=== PATIENT | female | born 1975 | race Caucasian/White ===

== ENCOUNTER 2017-06-01 13:37 | Emergency (ER) | payer BC, OTHER ==
[~2017-06-01] VITALS: Ht 167.6 cm; Wt 105.7 kg
[~2017-06-01 13:37] MED LIST: PRM625 PO; RANI150T3 PO; SERT-234 PO
[2017-06-01 13:50] VITALS: TEMP 36.7; Ht 167.6 cm; Wt 105.7 kg
[2017-06-01] MEDS ORDERED: ONDANSETRON INJ 2 MG/ML 2 ML VIAL IV STA (14:56)
[2017-06-01] MEDS ORDERED: KETOROLAC TROMETHAMINE 30 MG/ML VIAL IV STA (14:56)
[2017-06-01] MEDS ORDERED: SODIUM CHLORIDE 0.9% 1000ML 500 ML IV STA (14:56)
[2017-06-01] MEDS ORDERED: IBUP-1050 PO (15:10)
[2017-06-01 15:20] LABS: BASO % 0.1 %; BASO ABS # 0.01 K/uL (0-0.2); EOS % 1.1 %; EOS ABS # 0.08 K/uL (0-0.5); HEMOGLOBIN 13.2 g/dL (12.0-16.0); IG# 0.02 K/uL (0.00-0.02); LYMPH % 39.3 %; LYMPH ABS # 2.74 K/uL (1.2-3.4); MEAN CELL VOLUME 85.9 fL (80-100); MEAN CORPUSCULAR HEMOGLOBIN 29.1 pg (25-34); MEAN CORPUSCULAR HGB CONC 33.8 g/dl (32-36); MEAN PLATELET VOLUME 8.5 fL (7.4-10.4); MONO % 5.6 %; MONO ABS # 0.39 K/uL (0.11-0.59); NEUT % 53.6 %; NEUT ABS # 3.73 K/uL (1.4-6.5); PLATELET COUNT 220 K/uL (130-400); WHITE BLOOD COUNT 6.97 K/uL (4.8-10.8)
[2017-06-01 15:35] LABS: ALBUMIN 4.1 gm/dl (3.4-5.0); CALCIUM 9.2 mg/dl (8.5-10.1); CREATININE 0.87 mg/dl (0.60-1.20); POTASSIUM 3.9 mmol/L (3.5-5.1)
[2017-06-01 15:38] LABS: TOTAL PROTEIN 7.5 gm/dl (6.4-8.2)
--- NOTE | 2017-06-01 15:39 | DIAGNOSTIC IMAGING REPORT ---
ABD/PELVIS WITHOUT FOR STONE CLINICAL HISTORY: 42 years-old Female presenting with EVALUATE FLANK PAIN/HEMATURIA, right-sided abdominal pain. TECHNIQUE: Multidetector CT of the abdomen and pelvis was performed without the use of intravenous contrast. IV contrast: None. A dose lowering technique was used consistent with the principles of ALARA (as low as reasonably achievable). COMPARISON: Right upper quadrant ultrasound from 04/29/2014. CT DOSE (mGy.cm): The estimated cumulative dose is 1742.36 mGy.cm. 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 Lung bases: Minimal basilar opacities, likely atelectasis. Normal heart size. No pericardial or pleural effusion. Liver: Normal morphology. Normal density. Biliary: No gross biliary ductal dilatation allowing for noncontrast technique. Normal gallbladder. Pancreas: Normal noncontrast appearance. Spleen: Normal noncontrast appearance. Splenule noted. Adrenal glands: Normal noncontrast appearance. Kidneys and ureters: Normal noncontrast appearance. No nephrolithiasis. No hydronephrosis. Normal ureters. Calcification in the region of the right ureterovesical junction is suspected to be a phlebolith. Additionally, calcification along the mid left ureter is also suspected to be a phlebolith. Bladder: Incompletely evaluated secondary to underdistention. Pelvic organs: Uterus surgically absent. Normal ovaries. Bowel: Normal appendix. No bowel obstruction. Peritoneal cavity: No free fluid or intraperitoneal gas. Lymph nodes: No gross lymphadenopathy allowing for noncontrast technique. Vasculature: Normal noncontrast appearance. Abdominal wall: Normal. Musculoskeletal: Normal. IMPRESSION: 1. No acute intra-abdominal pathology. Electronically signed by: John Collazo M.D. 06/01/2017 3:38 PM Dictated Date/Time: 06/01/2017 3:31 PM
--- NOTE | 2017-06-01 17:03 | DIAGNOSTIC IMAGING REPORT ---
PELVIC COMPLETE NON OB HISTORY: 42 years-old Female poss ovarian cyst, torsion acute pelvic pain. Patient reports prior hysterectomy with bilateral salpingo-oophorectomy. COMPARISON: CT of same day TECHNIQUE: Multiple real-time sonographic images of the deep pelvic structures were obtained transabdominally assessing grayscale appearance. FINDINGS: Patient refused the transvaginal portion of the study. Uterus and ovaries are surgically absent. The urinary bladder is partially decompressed. No focal abnormality or fluid collections identified within the pelvis. IMPRESSION: 1. No acute abnormality identified within the pelvis. 2. Surgically absent uterus and ovaries. The above report was generated using voice recognition software. It may contain grammatical, syntax or spelling errors. Electronically signed by: Driss Goodrich M.D. 06/01/2017 5:01 PM Dictated Date/Time: 06/01/2017 4:59 PM
[2017-06-01 18:04] VITALS: BP 138/95; PULSE 78; O2SAT 95
--- NOTE | 2017-06-01 18:52 | EMERGENCY ROOM VISIT NOTE ---
History Report prepared by [place]: Tamera Herr Under the Supervision of: Dr. John Austin M.D. First contact with patient: 14:49 Chief Complaint: ABDOMINAL PAIN Stated Complaint: PAIN IN RIGHT SIDE AND BACK Nursing Triage Summary: Pt reports cramping in right side of abdomen and nausea that started this AM. History of Present Illness The patient is a 42 year old female who presents to the Emergency Room with complaints of intermittent right sided abdominal pain starting 6 hours ago. The patient was sitting at her desk today when she started feeling nauseous. She then leaned forward and started getting cramping and twisting RLQ abdominal pain. She was nauseous and diaphoretic with the pain. She rates her discomfort as a 7-8/10 in severity. The pain then resolved before coming back. The pain goes straight through to her back. The pain seems to worsen with bending over. She has never had this pain before. She is having some pain in her right leg. She denies any urinary symptoms, fever, or vomiting. She denies any trauma. She has a history of abdominal pain with constipation, but her pain today was different. She had a loose bowel movement this morning and does not feel constipated. She has not noticed any hernia. She still has her appendix. She has had a complete hysterectomy. She denies any history of kidney stones. She has a family history of gallbladder disease and kidney stones. Source of History: patient Onset: 6 hours ago Position: abdomen Symptom Intensity: 7-8/10 Quality: cramping, other (twisting) Timing: intermittent Modifying Factors (Worsening): other (bending over) Associated Symptoms: + diaphoresis, + nausea, + back pain, No fevers, No vomiting, No urinary symptoms Review of Systems See HPI for pertinent positives & negatives. A total of 10 systems reviewed and were otherwise negative. Past Medical & Surgical Surgical Problems: (1) S/P hysterectomy Family History FHx: gallbladder disease Kidney stones Social History Smoking Status: Never Smoker Marital Status: Housing Status: lives with family Occupation Status: employed Current/Historical Medications Scheduled PRN Ibuprofen (Advil), 800 MG PO TID PRN for Headache Ranitidine Hcl (Zantac), 150 MG PO DAILY PRN for Indigestion Allergies Coded Allergies: Acetaminophen (Verified Adverse Reaction, Severe, NAUSEA/VOMTING, 06/01/17) Physical Exam Vital Signs Date Time Temp Pulse Resp B/P (MAP) Pulse Ox O2 Delivery O2 Flow Rate FiO2 06/01/17 18:04 78 138/95 95 06/01/17 16:12 66 134/82 96 Room Air 06/01/17 13:50 36.7 83 17 133/92 98 Room Air Physical Exam GENERAL: Patient is in mild distress. HEENT: No acute trauma, normocephalic atraumatic, mucous membranes moist, no nasal congestion, no scleral icterus. NECK: No stridor, no adenopathy, no meningismus, trachea is midline. LUNGS: Clear to auscultation bilaterally, no wheeze, no rhonchi, breath sounds equal. HEART: Without murmurs gallops or rubs, regular rate and rhythm. ABDOMEN: Soft, tender along the entire right side of the abdomen mostly the RLQ , bowel sounds positive, no hernias, no peritonitis. BACK: No flank discomfort with percussion. EXTREMITIES: No cyanosis or edema, full range of motion of all the joints without pain or difficulty, no signs for acute trauma. NEUROLOGIC: Oriented x 3, no acute motor or sensory deficits, no focal weakness. SKIN: No rash, no jaundice, no diaphoresis. Medical Decision & Procedures ER Provider Diagnostic Interpretation: Radiology results as stated below per my review and radiologist interpretation: ABD/PELVIS WITHOUT FOR STONE CLINICAL HISTORY: 42 years-old Female presenting with EVALUATE FLANK PAIN/HEMATURIA, right-sided abdominal pain. TECHNIQUE: Multidetector CT of the abdomen and pelvis was performed without the use of intravenous contrast. IV contrast: None. A dose lowering technique was used consistent with the principles of ALARA (as low as reasonably achievable). COMPARISON: Right upper quadrant ultrasound from 04/29/2014. CT DOSE (mGy.cm): The estimated cumulative dose is 1742.36 mGy.cm. FINDINGS: In [employer] topogram: Unremarkable. Lung bases: Minimal basilar opacities, likely atelectasis. Normal heart size. No pericardial or pleural effusion. Liver: Normal morphology. Normal density. Biliary: No gross biliary ductal dilatation allowing for noncontrast technique. Normal gallbladder. Pancreas: Normal noncontrast appearance. Spleen: Normal noncontrast appearance. Splenule noted. Adrenal glands: Normal noncontrast appearance. Kidneys and ureters: Normal noncontrast appearance. No nephrolithiasis. No hydronephrosis. Normal ureters. Calcification in the region of the right ureterovesical junction is suspected to be a phlebolith. Additionally, calcification along the mid left ureter is also suspected to be a phlebolith. Bladder: Incompletely evaluated secondary to underdistention. Pelvic organs: Uterus surgically absent. Normal ovaries. Bowel: Normal appendix. No bowel obstruction. Peritoneal cavity: No free fluid or intraperitoneal gas. Lymph nodes: No gross lymphadenopathy allowing for noncontrast technique. Vasculature: Normal noncontrast appearance. Abdominal wall: Normal. Musculoskeletal: Normal. IMPRESSION: 1. No acute intra-abdominal pathology. Electronically signed by: John Collazo M.D. 06/01/2017 3:38 PM Dictated Date/Time: 06/01/2017 3:31 PM PELVIC COMPLETE NON OB HISTORY: 42 years-old Female poss ovarian cyst, torsion acute pelvic pain. Patient reports prior hysterectomy with bilateral salpingo-oophorectomy. COMPARISON: CT of same day TECHNIQUE: Multiple real-time sonographic images of the deep pelvic structures were obtained transabdominally assessing grayscale appearance. FINDINGS: Patient refused the transvaginal portion of the study. Uterus and ovaries are surgically absent. The urinary bladder is partially decompressed. No focal abnormality or fluid collections identified within the pelvis. IMPRESSION: 1. No acute abnormality identified within the pelvis. 2. Surgically absent uterus and ovaries. The above report was generated using voice recognition software. It may contain grammatical, syntax or spelling errors. Electronically signed by: Driss Goodrich M.D. 06/01/2017 5:01 PM Dictated Date/Time: 06/01/2017 4:59 PM Laboratory Results 06/01/17 15:04 Red Blood Count 4.54, Mean Corpuscular Volume 85.9, Mean Corpuscular Hemoglobin 29.1, Mean Corpuscular Hemoglobin Concent 33.8, Mean Platelet Volume 8.5, Neutrophils (%) (Auto) 53.6, Lymphocytes (%) (Auto) 39.3, Monocytes (%) (Auto) 5.6, Eosinophils (%) (Auto) 1.1, Basophils (%) (Auto) 0.1, Neutrophils # (Auto) 3.73, Lymphocytes # (Auto) 2.74, Monocytes # (Auto) 0.39, Eosinophils # (Auto) 0.08, Basophils # (Auto) 0.01 06/01/17 15:04 Test 06/01/17 15:04 06/01/17 15:05 White Blood Count 6.97 K/uL (4.8-10.8) Red Blood Count 4.54 M/uL (4.2-5.4) Hemoglobin 13.2 g/dL (12.0-16.0) Hematocrit 39.0 % (37-47) Mean Corpuscular Volume 85.9 fL (80-100) Mean Corpuscular Hemoglobin 29.1 pg (25-34) Mean Corpuscular Hemoglobin Concent 33.8 g/dl (32-36) Platelet Count 220 K/uL (130-400) Mean Platelet Volume 8.5 fL (7.4-10.4) Neutrophils (%) (Auto) 53.6 % Lymphocytes (%) (Auto) 39.3 % Monocytes (%) (Auto) 5.6 % Eosinophils (%) (Auto) 1.1 % Basophils (%) (Auto) 0.1 % Neutrophils # (Auto) 3.73 K/uL (1.4-6.5) Lymphocytes # (Auto) 2.74 K/uL (1.2-3.4) Monocytes # (Auto) 0.39 K/uL (0.11-0.59) Eosinophils # (Auto) 0.08 K/uL (0-0.5) Basophils # (Auto) 0.01 K/uL (0-0.2) RDW Standard Deviation 41.0 fL (36.4-46.3) RDW Coefficient of Variation 13.0 % (11.5-14.5) Immature Granulocyte % (Auto) 0.3 % Immature Granulocyte # (Auto) 0.02 K/uL (0.00-0.02) Anion Gap 5.0 mmol/L (3-11) Est Creatinine Clear Calc Drug Dose 102.5 ml/min Estimated GFR () 94.6 Estimated GFR (Non- 81.6 BUN/Creatinine Ratio 14.2 (10-20) Calcium Level 9.2 mg/dl (8.5-10.1) Total Bilirubin 0.5 mg/dl (0.2-1) Aspartate Amino Transf (AST/SGOT) 19 U/L (15-37) Alanine Aminotransferase (ALT/SGPT) 39 U/L (12-78) Alkaline Phosphatase 122 U/L (45-117) Total Protein 7.5 gm/dl (6.4-8.2) Albumin 4.1 gm/dl (3.4-5.0) Globulin 3.4 gm/dl (2.5-4.0) Albumin/Globulin Ratio 1.2 (0.9-2) Lipase 128 U/L (73-393) Urine Color YELLOW Urine Appearance CLEAR (CLEAR) Urine pH 6.5 (4.5-7.5) Urine Specific [place] 1.011 (1.000-1.030) Urine Protein NEG (NEG) Urine Glucose (UA) NEG (NEG) Urine Ketones NEG (NEG) Urine Occult Blood NEG (NEG) Urine Nitrite NEG (NEG) Urine Bilirubin NEG (NEG) Urine Urobilinogen NEG (NEG) Urine Leukocyte Esterase NEG (NEG) Laboratory results reviewed by me. Medications Administered Medications (Trade) Dose Ordered Sig/Thomas Route Start Time Stop Time Status Last Admin Dose Admin Ondansetron HCl (Zofran Inj) 4 mg NOW STAT IV 06/01/17 14:56 06/01/17 14:59 DC 06/01/17 15:08 4 MG Ketorolac Tromethamine (Toradol Inj) 30 mg NOW STAT IV 06/01/17 14:56 06/01/17 14:59 DC 06/01/17 15:09 30 MG Sodium Chloride 500 ml @ 999 mls/hr Q31M STAT IV 06/01/17 14:56 06/01/17 15:26 DC 06/01/17 15:08 999 MLS/HR ED Course 1449: The patient was evaluated in room A4B. A complete history and physical exam was performed. 1456: Sodium Chloride 500 ml @ 999 mls/hr IV, Toradol Inj 30 mg IV, Zofran Inj 4 mg IV. 1559: I reevaluated the patient. I updated her on the results. She is going for ultrasound. 1738: Reevaluated the patient. Discussed results and discharge instructions: She verbalized understanding and agreement. The patient is ready for discharge. Medical Decision Differential diagnoses considered include renal colic, hydronephrosis, pancreatitis, biliary colic, diverticulosis, hernia, UTI, bowel obstruction, nerve impingement. There is no leukocytosis or concerning anemia. No significant electrolyte abnormality or kidney failure. There is no hepatitis or pancreatitis. Urinalysis does not show infection or significant hematuria. On exam, there was no evidence for peritonitis. The patient was not febrile or toxic. Abdominal and pelvis CT does not show evidence for ureteral obstruction, there is no bowel obstruction, the appendix was normal. Ovaries were thought present. An ultrasound of the pelvis was done, no ovaries were seen--this is consistent with the patient's history of hysterectomy and bilateral oophorectomy. The patient received IV Zofran, IV saline, IV Toradol. She was feeling somewhat better but still has pain especially with movement. At this point, the pain appears musculoskeletal. No worrisome findings for the pain have been identified. The patient was reassured. She is being discharged home, if worsening, she can return. Medication Reconcilliation Current Medication List: was personally reviewed by me Blood Pressure Screening Patient's blood pressure: Elevated blood pressure Blood pressure disposition: Elevated BP felt to be situational Impression Primary Impression: RLQ abdominal pain Scribe Attestation The scribe's documentation has been prepared under my direction and personally reviewed by me in its entirety. I confirm that the note above accurately reflects all work, treatment, procedures, and medical decision making performed by me. Departure Information Dispostion Home / Self-Care Referrals John Tovar M.D. (PCP) Forms Call Back Authorization, HOME CARE DOCUMENTATION FORM, IMPORTANT VISIT INFORMATION Patient Instructions My [facility] Additional Instructions heat to the area rest motrin for pain return for fever, vomiting or worsening symptoms as discussed lab testing and imaging today was all ok
== END 2017-06-01 18:05 | disposition home or self-care (01) ==
LOC: C.EDB 13:42 → C.EDA 18:05
DX: R10.31 Right lower quadrant pain (principal); R03.0 Elevated blood-pressure reading, without diagnosis of hypertension; R11.0 Nausea; Z88.6 Allergy status to analgesic agent; Z83.79 Family history of other diseases of the digestive system; Z84.1 Family history of disorders of kidney and ureter

== ENCOUNTER 2018-08-26 09:38 | Inpatient (IN) ==
--- OUTSIDE RECORDS SUMMARY | 2018-08-26 09:42 | External Medical Summary | Continuity of Care Document ---
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 Artur Olmos Start: 24-May-2016 Quantity: 30 Refills: 3 Procedures History of Tubal Ligation Status: Comple mike History of Dilation And Curettage Status : Completed History of Cervical Conization Loop Electrode Excision Status: Completed History of Cervix Cryosurgery Status: Co mpleted History of Tonsillectomy Status: Complet ed History of Knee Surgery Status: Complete d History of Incisional Breast Biopsy Stat us: Completed History of Total Abdominal Hysterectomy With Removal Of Both Status: Completed Ovaries Immunizations Immunizations not documented Family History Grandmother Family history of Ovarian Cancer (V16.41) Status: Active Family history of Colon Cancer (V16.0) Status: Active Family history of Cervical Cancer Status: Active Grandmother Family history of Cervical Cancer Status: Active natural son Family history of Cerebral Palsy Status: Active Social History - Smoking Status Never smoker Plan of Treatment Planned Observations Planned Goals not documented Results No Known Results Results not documented
[2018-08-26] MEDS ORDERED: MoRPHine SULFATE 4 MG/ML 1 ML CARP\\VIAL IV STA ×2 (10:58→11:54)
[2018-08-26] MEDS ORDERED: SODIUM CHLORIDE 0.9% 1000ML 1,000 ML IV ONE ×2 (10:58→11:54)
[2018-08-26] MEDS ORDERED: ONDANSETRON INJ 2 MG/ML 2 ML VIAL IV STA (10:58)
--- NOTE | 2018-08-26 11:08 | Emergency Department Note ---
ED Provider Note CHIEF COMPLAINT: Right-sided chest pain HISTORY OF PRESENTING ILLNESS: This is a 43-year-old female with past medical history significant for for GERD and anxiety who presents to the emergency department by private vehicle with complaint of right-sided chest pain under her right breast that started last night. Patient states that she had similar pain about a week ago that lasted for a few hours, but then seemed to get better, she reports she thought this was heartburn. She states that her pain started again last night after eating dinner, she thought that it might be gas and she has tried Gas-X, antacids, and Pepto-Bismol without any relief. She has also tried ibuprofen, without any improvement in her pain. She has had associated nausea and a lot of belching, but no vomiting. She states she has been having watery diarrhea since last night as well and she has had associated chills, but does not know if she had a fever. She states the pain is constant, occasionally worsens with sharp stabbing pains, radiates to her back, and currently rates the pain as 7/10. She denies any history of gallbladder problems, but states both her mother and her sister have had her gallbladder was removed. Past surgical history of a total hysterectomy. She denies exogenous estrogen use. She denies any headaches, neck pain, shortness of breath, bloody or black stools, urinary complaints, or unusual rash. REVIEW OF SYSTEMS: A complete 10 point review of systems was reviewed with the patient with pertinent positives and negatives as per history of present illness. All else were negative. PAST MEDICAL HISTORY: Anxiety, GERD, total hysterectomy SOCIAL HISTORY: Lives at home family, she denies tobacco use ALLERGIES: Reviewed in chart PHYSICAL EXAM: CONSTITUTIONAL: Pleasant and cooperative. Nontoxic-appearing and in no acute distress, but appears uncomfortable from pain. Mildly dehydrated, but otherwise well appearing and well nourished. HEENT: Normocephalic, atraumatic. PERRL, EOMI. Pharynx normal. Tacky mucous membranes. NECK: Supple, full active range of motion without discomfort. RESPIRATORY: Clear to auscultation bilaterally with no wheezing, crackles, rhonchi or stridor. Equal expansion bilaterally. CARDIOVASCULAR: Regular rate and rhythm with no murmurs, rubs or gallops. Normal peripheral perfusion. No edema. GASTROINTESTINAL: Exquisitely tender in the right upper quadrant and epigastric abdomen with positive guarding. Positive Garcia sign. Abdomen is otherwise nontender, soft, and slightly distended. Obese abdomen. No palpable masses or HSM. Bowel sounds present in all quadrants. No CVA tenderness bilaterally. MUSCULOSKELETAL: Full range of motion of all joints without discomfort. INTEGUMENTARY: No rash or other significant dermatologic conditions noted. NEUROLOGIC: Alert and oriented X 4 with normal affect. Normal strength and sensation in all 4 extremities. Normal speech. Normal gait observed. ED COURSE AND MEDICAL DECISION MAKING: CC: Patient presenting with complaint of right-sided chest/abdominal pain DIFFERENTIAL DIAGNOSIS: Includes, but not limited to cholecystitis, choleli thiasis, pancreatitis, choledocholithiasis, gastritis, peptic ulcer disease, food poisoning, small bowel obstruction, PE, ACS, among others. INTERPRETATION OF LABS: No leukocytosis, no anemia, normal platelets, no significant electrolyte abnormalities, normal renal function, normal T bili with elevated liver enzymes and significantly elevated lipase. Negative troponin. IMAGING: XR chest 1V portable CLINICAL HISTORY: 43 years-old Female presenting with chest/abd pain. TECHNIQUE: Portable upright AP view of the chest was obtained. COMPARISON: 04/29/2014. FINDINGS: Cardiomediastinal silhouette normal. No focal opacity. No large effusion or pneumothorax. Osseous structures normal. Upper abdomen normal. IMPRESSION: 1. No acute cardiopulmonary disease. ----- US gallbladder HISTORY: Pain. Nausea. RUQ pain COMPARISON: None. FINDINGS: Several small gallstones as well as small cholesterol polyps are present within the gallbladder lumen. No significant pericholecystic edema. Common bile duct 5 mm. Liver is uniform throughout. Pancreas and right kidney are unremarkable. IMPRESSION: 1. Several small gallstones as well as several small cholesterol polyps. 2. Normal caliber bile ducts. 3. Study is otherwise negative. EKG: Shows normal sinus rhythm with rate of 71 bpm, normal intervals, no ectopy, flipped T waves in anterior leads which appears to be new when compared to previous EKG of 04/29/2014 by my interpretation. MEDICATION RECONCILIATION: I attest that I have personally reviewed the patient's current medication list. INITIAL VITAL SIGNS REVIEW: I reviewed the patient's initial vital signs and interpret them as follows: T: Afebrile; BP: Normotensive; HR: Mildly tachycardic; RR: Within normal limits; Pulse Ox: Within normal limits on room air. Blood pressure screening: The patient was found to have normal blood pressure on screening and does not require follow-up for repeat blood pressure check. MDM SUMMARY: Patient was evaluated at bedside, history and physical exam performed. Patient is alert and oriented, in no acute distress, but appears uncomfortable, holding her upper abdomen and rocking back and forth. She is exquisitely tender to palpation in the right upper quadrant and epigastric area, reproduces her complaint. No acute abdomen. Given patient's constellation of symptoms, I feel that this may be gallbladder related and have a much lower suspicion for etiology such as acute coronary syndrome or pulmonary embolism. Orders were placed at bedside for labs, IV fluid bolus for hydration, IV morphine for pain, IV Zofran for nausea, chest x-ray, right upper quadrant ultrasound to evaluate for gallbladder disease. Patient discussed with Dr. Shaffer, who agrees with my assessment, plan, and disposition. Labs and imaging reviewed as above, labs significant for elevated liver enzymes and lipase with a normal T bili and no leukocytosis. Troponin is negative. No acute ischemic changes appreciated on EKG. Gallbladder ultrasound shows several small gallstones with no evidence of cholecystitis. I spoke on the phone with DEVEN Burdick with gastroenterology, who felt that this did most likely represent a choledocholithiasis, and will order an MRCP. She recommended placement be placed on Lactated Ringer's for m aintenance at 200 mL/hr, this was ordered. The patient has been given additional doses of IV morphine to help manage her pain. I spoke with Sandra Jhaveri PA-C with [facility], who agrees to evaluate the patient for admission. She did request that I speak with general surgery to make them aware of the patient as well. I spoke on the phone with Erika Osullivan PA-C with general surgery, regarding the patient, she agrees to evaluate the patient in consult after she is admitted. Patient reassessed multiple times throughout ED stay, she has remained hemodynamically stable and afebrile, her pain and nausea have been improved with the above treatments, but she continues to be somewhat uncomfortable. The patient was updated on all results and plan for admission, she verbalized understanding and was agreeable to this plan. The patient was stable at time of admission. The chart was completed utilizing [employer] Speech voice recognition software. Grammatical errors, random word insertions, pronoun errors, and incomplete sentences are an occasional consequence of this system due to software limitations, ambient noise, and hardware issues. Any formal questions or concerns about the content, text, or information contained within the body of this dictation should be directly addressed to the nurse practitioner for clarification. Impression & Plan Abdominal pain, acute, right upper quadrant, Acute pancreatitis, Elevated liver enzymes, Gall bladder stones Past Med/Surg History Medical History H/O: hysterectomy (Chronic) Depression (Chronic) Family History Other Cancer Depression Social History Preferred Language: [place] Irish Communication Ability: Effective Beliefs That Will Affect Care: None Current Living Situation: Spouse and Family Other Information That Helps Us Care for You: No Feels Safe at Home: Yes Safety Concerns: Feels Safe At This Time Smoking Status: Never smoker Hx Alcohol Use: Yes Alcohol Intake Frequency Comment: 3 drinks 2 times a month Hx Substance Use: No Results & Data Vital Signs Vital Signs - 24 hr 08/26/18 09:41 08/26/18 11:14 08/26/18 11:18 Temperature 36.7 C Temperature Source Oral Sepsis Recent Fever Within 48 Hours No Sepsis Action Taken by Nursing No Action Required Pulse Rate 108 H 78 Pulse Rate from SpO2 Sensor 78 Respiratory Rate 18 15 Respiratory Depth Normal Blood Pressure 128/87 Blood Pressure Mean 100 Blood Pressure Position Sitting Pulse Oximetry 96 100 100 Oxygen Delivery Method Room Air Room Air Room Air 08/26/18 11:20 08/26/18 11:53 08/26/18 12:00 Temperature Temperature Source Sepsis Recent Fever Within 48 Hours Sepsis Action Taken by Nursing Pulse Rate Pulse Rate from SpO2 Sensor 78 68 Respiratory Rate 15 19 Respiratory Depth Blood Pressure 140/96 137/92 Blood Pressure Mean 110 107 Blood Pressure Position Pulse Oximetry 99 99 Oxygen Delivery Method Room Air Room Air 08/26/18 12:01 08/26/18 12:30 08/26/18 12:31 Temperature Temperature Source Sepsis Recent Fever Within 48 Hours Sepsis Action Taken by Nursing Pulse Rate Pulse Rate from SpO2 Sensor 73 69 78 Respiratory Rate 36 H 31 H 22 Respiratory Depth Blood Pressure 119/87 Blood Pressure Mean 97 Blood Pressure Position Pulse Oximetry 97 93 94 Oxygen Delivery Method Room Air Room Air Room Air 08/26/18 13:00 08/26/18 13:01 08/26/18 13:30 Temperature Temperature Source Sepsis Recent Fever Within 48 Hours Sepsis Action Taken by Nursing Pulse Rate Pulse Rate from SpO2 Sensor 75 79 70 Respiratory Rate 25 H 23 15 Respiratory Depth Blood Pressure 132/92 123/73 Blood Pressure Mean 105 89 Blood Pressure Position Pulse Oximetry 98 97 99 Oxygen Delivery Method Room Air Room Air Room Air 08/26/18 13:31 Temperature Temperature Source Sepsis Recent Fever Within 48 Hours Sepsis Action Taken by Nursing Pulse Rate Pulse Rate from SpO2 Sensor 74 Respiratory Rate 14 Respiratory Depth Blood Pressure Blood Pressure Mean Blood Pressure Position Pulse Oximetry 98 Oxygen Delivery Method Room Air Laboratory Data Result diagrams: 08/26/18 11:08 08/26/18 11:08 Lab Results 08/26/18 08/26/18 08/26/18 Range/Units 11:08 11:08 11:08 WBC 7.74 (4.8-10.8) K/uL RBC 4.50 (4.2-5.4) M/uL Hgb 13.4 (12.0-16.0) g/dL Hct 38.9 (37-47) % MCV 86.4 (80-100) fL MCH 29.8 (25-34) pg MCHC 34.4 (32-36) g/dL RDW Std Deviation 39.5 (36.4-46.3) fL RDW Coeff of Amarilys 12.5 (11.5-14.5) % Plt Count 197 (130-400) K/uL MPV 8.4 (7.4-10.4) fL Immature Gran % (Auto) 0.1 % Neut % (Auto) 68.1 % Lymph % (Auto) 24.0 % [place] % (Auto) 7.8 % Eos % (Auto) 0.0 % Baso % (Auto) 0.0 % Immature Gran # (Auto) 0.01 (0.00-0.02) K/uL Neut # (Auto) 5.27 (1.4-6.5) K/uL Lymph # (Auto) 1.86 (1.2-3.4) K/uL [place] # (Auto) 0.60 H (0.11-0.59) K/uL Eos # (Auto) 0.00 (0-0.5) K/uL Baso # (Auto) 0.00 (0-0.2) K/uL Sodium 140 (136-145) mmol/L Potassium 4.1 (3.5-5.1) mmol/L Chloride 105 (98-107) mmol/L Carbon Dioxide 29 (21-32) mmol/L Anion Gap 6.0 (3-11) BUN 12 (7-18) mg/dl Creatinine 0.92 (0.6-1.2) mg/dl Est Cr Clr Drug Dosing 90.0 ml/min Est GFR ( Amer) 87.8 Est GFR (Non-Af Amer) 75.7 BUN/Creatinine Ratio 13.1 (10-20) Glucose 93 (70-99) mg/dl Calcium 9.7 (8.5-10.1) mg/dl Total Bilirubin 0.7 (0.2-1) mg/dl AST 365 H (15-37) U/L ALT 439 H (12-78) U/L Alkaline Phosphatase 156 H (45-117) U/L Troponin I < 0.015 (0-0.045) ng/ml Total Protein 7.7 (6.4-8.2) gm/dl Albumin 4.0 (3.4-5.0) gm/dl Globulin 3.7 (2.5-4.0) gm/dl Albumin/Globulin Ratio 1.1 (0.9-2) Lipase 15775 H (73-393) U/L Administered Medications Lactated Ringer's (Lr) 1,000 mls @ 200 mls/hr IV .Q5H CUBA Stop: 09/25/18 12:14 Last Infusion: 08/26/18 15:21 Dose: 0 mls/hr Documented by: [id number] Admin: 08/26/18 12:47 Dose: 200 mls/hr Documented by: [id number] Morphine Sulfate (Morphine Sulfate) 3 mg IV Q3H PRN PRN Reason: Pain Stop: 09/09/18 14:56 Last Admin: 08/26/18 15:28 Dose: 3 mg Documented by: [id number] Ondansetron HCl (Zofran) 4 mg IV Q6H PRN PRN Reason: Nausea Stop: 09/25/18 14:56 Last Admin: 08/26/18 15:31 Dose: 4 mg Documented by: [id number] Discontinued Medications Sodium Chloride (Nss 1000ml) 1,000 mls @ 999 mls/hr IV .Q1H1M ONE Stop: 08/26/18 11:58 Last Infusion: 08/26/18 12:04 Dose: 0 mls/hr Documented by: [id number] Admin: 08/26/18 11:12 Dose: 999 mls/hr Documented by: [id number] Sodium Chloride (Nss 1000ml) 1,000 mls @ 999 mls/hr IV .Q1H1M ONE Stop: 08/26/18 12:54 Last Infusion: 08/26/18 12:47 Dose: 0 mls/hr Documented by: [id number] Admin: 08/26/18 12:02 Dose: 999 mls/hr Documented by: [id number] Lactated Ringer's (Lr) 1,000 mls @ 999 mls/hr IV .Q1H1M ONE Stop: 08/26/18 14:31 Last Infusion: 08/26/18 16:09 Dose: 999 mls/hr Documented by: [id number] Infusion: 08/26/18 15:34 Dose: 0 mls/hr Documented by: [id number] Admin: 08/26/18 15:24 Dose: 999 mls/hr Documented by: [id number] Morphine Sulfate (Morphine Sulfate) 4 mg IV NOW STA Stop: 08/26/18 10:59 Last Admin: 08/26/18 11:13 Dose: 4 mg Documented by: [id number] Morphine Sulfate (Morphine Sulfate) 4 mg IV NOW STA Stop: 08/26/18 11:55 Last Admin: 08/26/18 12:01 Dose: 4 mg Documented by: [id number] Ondansetron HCl (Zofran) 4 mg IV NOW STA Stop: 08/26/18 10:59 Last Admin: 08/26/18 11:12 Dose: 4 mg Documented by: [id number] Discharge Plan Visit Data *Final* Discharge Date/Time: 08/26/18 14:47 Chief Complaint: Chest Pain Stated Complaint: CHEST PAIN ED Provider: Kevin Shaffer ED Midlevel Provider: Eunice Archibald Discharge Problem: Abdominal pain, acute, right upper quadrant, Acute pancreatitis, Elevated liver enzymes, Gall bladder stones Patient Disposition: Admitted As Inpatient Discharge Instructions Interventions: ED Discharge Assessment Last Done: 08/26/18 14:47 Discharge Problem: Acute pancreatitis Qualifiers: Pancreatitis type: unspecified pancreatitis type Acute pancreatitis complication: unspecified Qualified Code(s): K85.90 - Acute pancreatitis without necrosis or infection, unspecified
[2018-08-26 11:23] LABS: Hematocrit (blood only) 38.9 % (37-47); Hemoglobin 13.4 g/dL (12.0-16.0); Immature Granulocytes # (auto) 0.01 K/uL (0.00-0.02); Immature Granulocytes % (auto) 0.1 %; Lymphocytes # (auto) 1.86 K/uL (1.2-3.4); Mean Corpuscular Hgb Conc 34.4 g/dL (32-36); Mean Corpuscular Volume 86.4 fL (80-100); Mean Platelet Volume 8.4 fL (7.4-10.4); Monocytes % (auto) 7.8 %; Neutrophils # (auto) 5.27 K/uL (1.4-6.5); Neutrophils % (auto) 68.1 %; Platelet Count 197 K/uL (130-400); RDW Coefficient of Variation 12.5 % (11.5-14.5); RDW Standard Deviation 39.5 fL (36.4-46.3); White Blood Count 7.74 K/uL (4.8-10.8)
--- NOTE | 2018-08-26 11:23 | XRay Report ---
XR chest 1V portable CLINICAL HISTORY: 43 years-old Female presenting with chest/abd pain. TECHNIQUE: Portable upright AP view of the chest was obtained. COMPARISON: 04/29/2014. FINDINGS: Cardiomediastinal silhouette normal. No focal opacity. No large effusion or pneumothorax. Osseous str uctures normal. Upper abdomen normal. IMPRESSION: 1. No acute cardiopulmonary disease. Electronically signed by: John Collazo M.D. 08/26/2018 11:22 AM
[2018-08-26 11:40] LABS: BUN Creatinine Ratio 13.1 (10-20); Calcium 9.7 mg/dl (8.5-10.1); Est GFR (African American) 87.8; Est GFR (Non-African American) 75.7; Potassium 4.1 mmol/L (3.5-5.1)
--- NOTE | 2018-08-26 11:41 | Ultrasound Report ---
US gallbladder HISTORY: Pain. Nausea. RUQ pain COMPARISON: None. FINDINGS: Several small gallstones as well as small cholesterol polyps are present within the gallbladder lumen . No significant pericholecystic edema. Common bile duct 5 mm. Liver is uniform throughout. Pancreas and right kidney are unremarkable. IMPRESSION: 1. Several small gallstones as well as several small cholesterol polyps. 2. Normal caliber bile ducts. 3. Study is otherwise negative. The above report was generated using voice recognition software. It may contain grammatical, syntax or spelling errors. Electronically signed by: Mynor Puente M.D. 08/26/2018 11:39 AM
[2018-08-26 11:44] LABS: Albumin Globulin Ratio 1.1 (0.9-2); Bilirubin,Total 0.7 mg/dl (0.2-1); Globulin 3.7 gm/dl (2.5-4.0); Total Protein 7.7 gm/dl (6.4-8.2)
--- NOTE | 2018-08-26 12:20 | Gastrointestinal Consultation ---
Date of Consultation August 26, 2018 Assessment & Plan (1) Acute pancreatitis: 43 year old female with abrupt onset upper abdominal pain and nausea since last evening. She is afebrile without leukocytosis w/ significantly elevated lipase and transaminases. ABD US w/ stones but no biliary dilation. DDX discussed, likely gallstone pancreatitis - MRCP to better evaluate the biliary system - Consult for admission - Consult general surgery - Treat the pancreatitis - NPO - LR 200 mL/hr - Antiemetics PRN - Analgesia PRN - No current indication for ERCP but will follow LFTs, MRCP Thank you for allowing us to participate in the care of this patient. Please call with any acute changes, questions or concerns. Please see addendum below with additional recommendation from my supervising physician. Present on Admission?: Yes (2) Gall bladder stones: Present on Admission?: Yes (3) Elevated liver enzymes: Present on Admission?: Yes Supervising Physician Co-Signing Physician Notes I have personally seen and examined the patient with DEVEN Burdick. Her note reflects my exam and findings. I agree with her impression and plan. Classic presentation of gall stone pancreatitis. Mainstay of treatment is aggressive hydration, NPO and pain control. She needs 4 liters of fluid infused aggressively ( I will order another liter now) than infusion rate of 200. Follow Hct and renal function to make sure she is adequately hyrated. A drop in H/H and creatinine is a good sign. Follow electrolytes and replace as needed. No obvious signs of biliary obstruction at this point. Luis Leavitt M.D. History of Present Illness Reason for Consultation: gallstone pancreatitis Requesting Physician: Cristela Attending Physician: Cristela History of Present Illness 43 year old female with history of GERD, anxiety, HTN s/p hysterectomy who presents through the ED for evaluation of severe upper abdominal pain with associated nausea since dinner last evening - GI asked to evaluate for suspected gallstone pancreatitis. Pt was seen and evaluated, chart reviewed. She notes last evening she developed severe upper abd pain, constant. This would radiate under both breast and into her back. Explained as severe. Did not resolve w/ Advil. Assocaited with nausea but no vomiting. She notes near identical symptoms about 1 week ago after dinner but those resolved in about thirty minutes. Denies any vomiting. Has had watery stool this AM but denies any black or bloody stoo ls. No sick contacts. No new medications. Does not drink any ETOH. No ilicit drug use. Denies marijuana use. She notes her pain has been moderately improved with IV analgesia, however, still present. No fever, chills, CP, SOB. TB: 0.7 AST: 365 ALT: 439 ALKP: 156 Lipase: 11,000 ABD US w/ gallstones but without biliary dilation + family history of gallbladder disease - family history of pancreatitis Allergies Allergy/AdvReac Type Severity Reaction Status Date / Time acetaminophen AdvReac Severe NAUSEA/VOMT Verified 08/26/18 11:14 [facility] Home Medications Home Medications Medication Instructions Recorded Confirmed Type bupropion HCl 150 mg PO BID 08/26/18 08/26/18 History venlafaxine 75 mg PO DAILY 08/26/18 08/26/18 History venlafaxine 150 mg PO DAILY 08/26/18 08/26/18 History Patient History Social History Feels Safe at Home: Yes Smoking Status: Never smoker Review of Systems Constitutional: no fever, no chills and no fatigue Respiratory: no cough, no dyspnea and no wheezing Cardiovascular: no chest pain, no radiating jaw, neck or arm pain and no claudication Gastrointestinal: + abdominal pain and + nausea; no early satiety, no vomiting, no blood in stools and no melena Endocrine: no fatigue Hematologic / Lymphatic: no easy bleeding, no easy bruising, no coagulopathy and no unexplained weight loss Physical Exam Constitutional: well developed, well nourished and + acute distress; not ill appearing Respiratory: normal respiratory effort, lungs clear to auscultation Cardiovascular: RRR, no murmur, no edema Gastrointestinal (Abdomen): Inspection/Auscultation: abdomen normal to inspection and normal bowel sounds Percussion/Palpation: + abdomen tender (moderate discomfort reported w/ palpation) and abdomen soft; no guarding and abdomen not rigid Skin: no rashes, warm and dry Results & Data Vital Signs (Past 12 Hours) Vital Signs Temp Pulse Resp BP Pulse Ox 08/26/18 12:01 36 H 97 08/26/18 12:00 19 137/92 99 08/26/18 11:53 15 99 08/26/18 11:20 140/96 08/26/18 11:18 78 15 100 08/26/18 11:14 100 08/26/18 09:41 36.7 C 108 H 18 128/87 96 Laboratory Results 08/26/18 08/26/18 08/26/18 Range/Units 11:08 11:08 11:08 WBC 7.74 (4.8-10.8) K/uL RBC 4.50 (4.2-5.4) M/uL Hgb 13.4 (12.0-16.0) g/dL Hct 38.9 (37-47) % MCV 86.4 (80-100) fL MCH 29.8 (25-34) pg MCHC 34.4 (32-36) g/dL RDW Std Deviation 39.5 (36.4-46.3) fL RDW Coeff of Amarilys 12.5 (11.5-14.5) % Plt Count 197 (130-400) K/uL MPV 8.4 (7.4-10.4) fL Immature Gran % (Auto) 0.1 % Neut % (Auto) 68.1 % Lymph % (Auto) 24.0 % [place] % (Auto) 7.8 % Eos % (Auto) 0.0 % Baso % (Auto) 0.0 % Immature Gran # (Auto) 0.01 (0.00-0.02) K/uL Neut # (Auto) 5.27 (1.4-6.5) K/uL Lymph # (Auto) 1.86 (1.2-3.4) K/uL [place] # (Auto) 0.60 H (0.11-0.59) K/uL Eos # (Auto) 0.00 (0-0.5) K/uL Baso # (Auto) 0.00 (0-0.2) K/uL Sodium 140 (136-145) mmol/L Potassium 4.1 (3.5-5.1) mmol/L Chloride 105 (98-107) mmol/L Carbon Dioxide 29 (21-32) mmol/L Anion Gap 6.0 (3-11) BUN 12 (7-18) mg/dl Creatinine 0.92 (0.6-1.2) mg/dl Est Cr Clr Drug Dosing 90.0 ml/min Est GFR ( Amer) 87.8 Est GFR (Non-Af Amer) 75.7 BUN/Creatinine Ratio 13.1 (10-20) Glucose 93 (70-99) mg/dl Calcium 9.7 (8.5-10.1) mg/dl Total Bilirubin 0.7 (0.2-1) mg/dl AST 365 H (15-37) U/L ALT 439 H (12-78) U/L Alkaline Phosphatase 156 H (45-117) U/L Troponin I < 0.015 (0-0.045) ng/ml Total Protein 7.7 (6.4-8.2) gm/dl Albumin 4.0 (3.4-5.0) gm/dl Globulin 3.7 (2.5-4.0) gm/dl Albumin/Globulin Ratio 1.1 (0.9-2) Lipase 86349 H (73-393) U/L (1) Acute pancreatitis Acute pancreatitis complication: unspecified Pancreatitis type: unspecified pancreatitis type Qualified Code(s): K85.90 - Acute pancreatitis without necrosis or infection, unspecified
[2018-08-26] MEDS: LACTATED RINGER'S 1,000 ML IV SCH ×3 (12:47→22:41)
[2018-08-26] MEDS ORDERED: LACTATED RINGER'S 1,000 ML IV ONE (13:31)
--- NOTE | 2018-08-26 13:51 | History & Physical Report ---
Date of Service August 26, 2018 Assessment & Plan (1) Gallstone pancreatitis: Patient presented with epigastric and right upper quadrant pain x1 day with associated nausea and diarrhea. In ER patient afebrile, BP:128/87, P: 108 and 78, RR: 18 -36 (respirations were documented as high as 36 however upon my evaluation patient respirations 18-20, ER nurse reports respirations were documented as part of captured vitals so these respirations may have not been accurate) WBC: 7, H/H: 13/38, total bili: 0.7, AST: 65, ALT: 439, alk phos: 156, lipase: 11,214 Gallbladder ultrasound: Several small gallstones as well as several small cholesterol polyps. Normal caliber bile ducts. -In ER patient received 2 L NSS, Zofran, total 8 mg morphine IV with some reported improvement of pain -UA pending -N.p.o. -Zofran as needed nausea -Morphine as needed pain -GI consult -saw patient in ER and recommends MRCP, additional IV fluids with 1 L bolus of lactated Ringer's followed by LR at 200 mL/h. -Surgery consult - saw pt and recommends will likely need cholecystectomy however would like lipase to improve back to normal range before entertaining cholecystectomy. -CBC, lipid profile, CMP, lipase in a.m. (2) Depression: Stable -Hold venlafaxine, bupropion currently as NPO for pancreatitis DVT Prophylaxis -SCDs, ambulate Follows with Dr Tovar for routine care Pt was seen and care coordinated with Dr Byrd. See addendum History of Present Illness Chief Complaint: RUQ pain Primary Care Provider: John Tovar MD Pt is 43 y/o F with PMH depression, endometriosis s/p ISIDRO-BSO presented to ER with c/o RUQ pain x 1 day. Patient states last night he ate chicken and steak kabob and later in the evening developed epigastric and right upper quadrant pain described as achy with intermittent sharp episodes. Reports one episode of mid upper back pain last night which resolved. Complains of nausea and has had 4-5 episodes of watery diarrhea since last night. Patient states he tried Zantac last night without any relief. She reports was having sweats and feeling dizzy last evening. Did not take her temperature. Pt reports approx 1.5 week ago had similar RUQ pain after eating dinner which self resolved. Denies LYNN, syncope, vision changes, neck pain, SOB, orthopnea, palpitations, cough, sore throat, choking, otalgia, rhinorrhea, paresthesias, weakness, extremity weakness, extremity edema, rashes, urinary symptoms. Allergies Allergy/AdvReac Type Severity Reaction Status Date / Time acetaminophen AdvReac Severe NAUSEA/VOMT Verified 08/26/18 11:14 ING Home Medications Home Medications Medication Instructions Recorded Confirmed Type bupropion HCl 150 mg PO BID 08/26/18 08/26/18 History venlafaxine 75 mg PO DAILY 08/26/18 08/26/18 History venlafaxine 150 mg PO DAILY 08/26/18 08/26/18 History Past Med/Surg History Medical History H/O: hysterectomy (Chronic) Depression (Chronic) Family History Other Cancer Depression Social History Preferred Language: Marshallese Communication Ability: Effective Beliefs That Will Affect Care: None Current Living Situation: Spouse and Family Other Information That Helps Us Care for You: No Feels Safe at Home: Yes Safety Concerns: Feels Safe At This Time Smoking Status: Never smoker Hx Alcohol Use: Yes Alcohol Intake Frequency Comment: 3 drinks 2 times a month Hx Substance Use: No Review of Systems Review of Systems: All systems reviewed & are unremarkable except as noted in HPI & below Physical Exam 2 Physical Exam: General: mild distress secondary to abdominal discomfort, feels better sitting up, non-toxic appearance, obese Head: normocephalic, atraumatic Eyes: PERRL, EOM's intact, conjunctiva non-injected, anicteric ENT: normal inspection external ears, nose, mucous membranes mildly dry Neck: supple, trachea midline Lungs: clear, no respiratory distress, no wheezing/rhonchi/rales CV: RRR, no murmur, no JVD, no pretibial edema Abd: normal BS, soft, protuberant, +tenderness to palpation epigastric and RUQ with guarding Ext: no cyanosis, no calf tenderness Neuro: A&O x 3, no focal deficits noted, normal affect Skin: warm, dry Results & Data Vital Signs (Past 12 Hours) Vital Signs Temp Pulse Resp BP Pulse Ox 08/26/18 13:01 23 97 08/26/18 13:00 25 H 132/92 98 08/26/18 12:31 22 94 08/26/18 12:30 31 H 119/87 93 08/26/18 12:01 36 H 97 08/26/18 12:00 19 137/92 99 08/26/18 11:53 15 99 08/26/18 11:20 140/96 08/26/18 11:18 78 15 100 08/26/18 11:14 100 08/26/18 09:41 36.7 C 108 H 18 128/87 96 Laboratory Results Short CBC 08/26/18 Range/Units 11:08 WBC 7.74 (4.8-10.8) K/uL Hgb 13.4 (12.0-16.0) g/dL Hct 38.9 (37-47) % Plt Count 197 (130-400) K/uL BMP 08/26/18 11:08 Sodium 140 Potassium 4.1 Chloride 105 Carbon Dioxide 29 BUN 12 Creatinine 0.92 Glucose 93 Calcium 9.7 Cardiac Enzymes 08/26/18 Range/Units 11:08 Troponin I < 0.015 (0-0.045) ng/ml Liver Function 08/26/18 Range/Units 11:08 Total Bilirubin 0.7 (0.2-1) mg/dl AST 365 H (15-37) U/L ALT 439 H (12-78) U/L Alkaline Phosphatase 156 H (45-117) U/L Albumin 4.0 (3.4-5.0) gm/dl Diagnostic Findings CXR: IMPRESSION: 1. No acute cardiopulmonary disease. Gallbladder US: IMPRESSION: 1. Several small gallstones as well as several small cholesterol polyps. 2. Normal caliber bile ducts. 3. Study is otherwise negative. Supervising Physician Co-Signing Physician Notes HISTORY: Record reviewed. Patient interviewed and examined. Care coordinated with Sandra Galeano PA-C. Please refer to her documentation for patient's history. Briefly, 43 YO female who developed epigastric pain radiating to back and nausea last night after eating. Similar episode about 1 week ago, but not as severe. EXAM: General- no distress Lungs- clear to auscultation; no respiratory distress Cardiovascular- RRR; no murmur; no gallop; no JVD; no pretibial edema Abdomen- + bowel sounds, soft, moderate epigastric tenderness Extremities- no cyanosis; no calf tenderness Neuro- alert, oriented Skin- warm & dry DATA: Laboratory Tests 08/26/18 11:08 Total Bilirubin 0.7 AST 365 H ALT 439 H Alkaline Phosphatase 156 H Lipase 53366 H Laboratory Tests 08/26/18 11:08 Troponin I < 0.015 Other lab studies as noted. Gallbladder US demonstrated cholelithiasis + gallbladder polyps, normal calibre CBD. EKG performed at reviewed and demonstrated 0945 at 70 / minute, T wave inversions V1-3. ASSESSMENT AND PLAN: Gallstone pancreatitis. NPO, IV fluids, analgesics. GI and General Surgery consulted. Please refer to JULIANE Jhaveri's documentation for discussion of other issues.
--- NOTE | 2018-08-26 14:25 | Surgery Consultation ---
Date of Consultation August 26, 2018 Assessment & Plan (1) Gallstone pancreatitis: 43 year-old female with 1 day history of abdominal pain located in epigastrium and RUQ with associated nausea, vomiting, diarrhea, and sweats. Prior episode of abdominal pain 1 week ago, self resolving. No prior history of gallbladder problems. Ultrasound showing small gallstones and polyps, no signs of acute cholecystitis, and CBD within normal caliber at 5 mm. Labs show no leukocytosis. Elevated LFTS, Alk phos and lipase consistent with diagnosis. Abdomen is soft, nondistended, tender in RUQ and epigastrium. Plan: No signs of acute cholecystitis however patient is having symptomatic cholelithiasis with likely gallstone pancreatitis. MRCP ordered to further evaluate for biliary obstruction. Will likely need cholecystectomy however would like lipase to improve back to normal range before entertaining cholecystectomy. Would continue conservative treatment with IV fluid hydration, IV pain medication as needed, IV Zofran as needed for nausea, and kept NPO. Continue medical management Follow cbc, cmp, lipase Will follow along to determine timing of cholecystectomy Dr. Navarro was present during my examination, agrees with above. History of Present Illness Reason for Consultation: Gallstone pancreatitis Requesting Physician: Baljit Byrd Attending Physician: Samy Lau History of Present Illness Hailey is a 43 year-old female who presented to emergency room with complaint of abdominal pain, chills, sweats, nausea, vomiting, and diarrhea that started last night at 6 pm. States pain is in the mid and right upper abdomen with radiation to her back. Pain has not improved since 6 pm last evening. Similar episode of pain last week in which pain lasted for about 5 hours and then self resolved. Loose stools. No known fevers but had chills and sweats. No prior history of gallbladder problems. Denies of any chest pain, shortness of breath, difficulty breathing, blood in stools, difficulty urinating, or jaundice. Prior hysterectomy. No blood thinning agents. Er work-up included labs which showed no leukocytosis. CMP showing elevated LFTS (AST 365, ALT 439), Alk phos 156, [place] [address]. Ultrasound showed several small gallstones and cholesterol polyps however no pericholecystic fluid or wall thickening. CBD 5 mm. Allergies Allergy/AdvReac Type Severity Reaction Status Date / Time acetaminophen AdvReac Severe NAUSEA/VOMT Verified 08/26/18 11:14 ING Home Medications Home Medications Medication Instructions Recorded Confirmed Type bupropion HCl 150 mg PO BID 08/26/18 08/26/18 History venlafaxine 75 mg PO DAILY 08/26/18 08/26/18 History venlafaxine 150 mg PO DAILY 08/26/18 08/26/18 History Patient History Medical History H/O: hysterectomy Social History Feels Safe at Home: Yes Smoking Status: Never smoker Review of Systems Review of Systems: All systems reviewed & are unremarkable except as noted in HPI & below Physical Exam Constitutional: WD/WN, vitals as above + obese; no acute distress and not ill appearing Respiratory: normal respiratory effort, lungs clear to auscultation Cardiovascular: RRR, no murmur, no edema Gastrointestinal (Abdomen): Inspection/Auscultation: abdomen normal to inspection; abdomen not distended Percussion/Palpation: + abdomen tender (RUQ), + guarding (RUQ, positive Garcia's sign) and abdomen soft; abdomen not rigid Skin: no rashes, warm and dry Psychiatric: A+Ox3, euthymic affect Results & Data Vital Signs (Past 12 Hours) Vital Signs Temp Pulse Resp BP Pulse Ox 08/26/18 14:01 15 94 08/26/18 14:00 26 H 117/74 96 08/26/18 13:31 14 98 08/26/18 13:30 15 123/73 99 08/26/18 13:01 23 97 08/26/18 13:00 25 H 132/92 98 08/26/18 12:31 22 94 08/26/18 12:30 31 H 119/87 93 08/26/18 12:01 36 H 97 08/26/18 12:00 19 137/92 99 08/26/18 11:53 15 99 08/26/18 11:20 140/96 08/26/18 11:18 78 15 100 08/26/18 11:14 100 08/26/18 09:41 36.7 C 108 H 18 128/87 96 Laboratory Results 08/26/18 08/26/18 08/26/18 Range/Units 11:08 11:08 11:08 WBC 7.74 (4.8-10.8) K/uL RBC 4.50 (4.2-5.4) M/uL Hgb 13.4 (12.0-16.0) g/dL Hct 38.9 (37-47) % MCV 86.4 (80-100) fL MCH 29.8 (25-34) pg MCHC 34.4 (32-36) g/dL RDW Std Deviation 39.5 (36.4-46.3) fL RDW Coeff of Amarilys 12.5 (11.5-14.5) % Plt Count 197 (130-400) K/uL MPV 8.4 (7.4-10.4) fL Immature Gran % (Auto) 0.1 % Neut % (Auto) 68.1 % Lymph % (Auto) 24.0 % [place] % (Auto) 7.8 % Eos % (Auto) 0.0 % Baso % (Auto) 0.0 % Immature Gran # (Auto) 0.01 (0.00-0.02) K/uL Neut # (Auto) 5.27 (1.4-6.5) K/uL Lymph # (Auto) 1.86 (1.2-3.4) K/uL [place] # (Auto) 0.60 H (0.11-0.59) K/uL Eos # (Auto) 0.00 (0-0.5) K/uL Baso # (Auto) 0.00 (0-0.2) K/uL Sodium 140 (136-145) mmol/L Potassium 4.1 (3.5-5.1) mmol/L Chloride 105 (98-107) mmol/L Carbon Dioxide 29 (21-32) mmol/L Anion Gap 6.0 (3-11) BUN 12 (7-18) mg/dl Creatinine 0.92 (0.6-1.2) mg/dl Est Cr Clr Drug Dosing 90.0 ml/min Est GFR ( Amer) 87.8 Est GFR (Non-Af Amer) 75.7 BUN/Creatinine Ratio 13.1 (10-20) Glucose 93 (70-99) mg/dl Calcium 9.7 (8.5-10.1) mg/dl Total Bilirubin 0.7 (0.2-1) mg/dl AST 365 H (15-37) U/L ALT 439 H (12-78) U/L Alkaline Phosphatase 156 H (45-117) U/L Troponin I < 0.015 (0-0.045) ng/ml Total Protein 7.7 (6.4-8.2) gm/dl Albumin 4.0 (3.4-5.0) gm/dl Globulin 3.7 (2.5-4.0) gm/dl Albumin/Globulin Ratio 1.1 (0.9-2) Lipase 27468 H (73-393) U/L Diagnostic Findings US gallbladder HISTORY: Pain. Nausea. RUQ pain COMPARISON: None. FINDINGS: Several small gallstones as well as small cholesterol polyps are present within the gallbladder lumen. No significant pericholecystic edema. Common bile duct 5 mm. Liver is uniform throughout. Pancreas and right kidney are unremarkable. IMPRESSION: 1. Several small gallstones as well as several small cholesterol polyps. 2. Normal caliber bile ducts. 3. Study is otherwise negative.
[2018-08-26] MEDS: MoRPHine SULFATE 4 MG/ML 1 ML CARP\\VIAL IV PRN ×2 (15:28→18:55)
[2018-08-26] MEDS: ONDANSETRON INJ 2 MG/ML 2 ML VIAL IV PRN (15:31)
--- NOTE | 2018-08-26 16:56 | Magnetic Resonance Report ---
MRCP CLINICAL HISTORY: Gallstone pancreatitis. COMPARISON STUDY: Abdominal CT dated 06/01/2017. Abdominal ultrasound dated 08/26/2018. TECHNIQUE: Abdominal MRCP is performed utilizing various T2-weighted sequences in the axial and coron al planes. IV contrast was not administered for this examination. 3-D reformats are created and asses sed. FINDINGS: The gallbladder is distended. The gallbladder wall is thickened and edematous, and there is perichole cystic fluid. The appearance is highly concerning for acute cholecystitis. Small gallstones are noted within the gallbladder lumen. The common bile duct measures up to 8 mm. There are no intraluminal fi lling defects to suggest choledocholithiasis. There is no intrahepatic biliary ductal dilatation. The pancreatic duct is normal in caliber. The unenhanced liver, spleen, adrenal glands, and kidneys are grossly unremarkable. The abdominal aor ta is normal in caliber. The pancreas is normal in appearance. No peripancreatic stranding or fluid i s identified. There is no bowel obstruction. No abdominal adenopathy is seen. No abdominal ascites is identified. There is no pleural effusion. The visualized bony structures appear intact. IMPRESSION: 1. Cholelithiasis with evidence of acute cholecystitis. 2. There is no intrahepatic biliary ductal dilatation. No choledocholithiasis is seen. 3. There is no MRI evidence of pancreatitis. Correlation with serum amylase/lipase levels will be req uired. Electronically signed by: John Dyer M.D. 08/26/2018 4:55 PM
[2018-08-26] MEDS: AMPICILLIN/SULBACTAM SOD 3,000 MG in 0.9 % SODIUM CHLORIDE 100 ML IV SCH (20:33)
[2018-08-27] MEDS: ONDANSETRON INJ 2 MG/ML 2 ML VIAL IV PRN ×2 (00:03→06:53)
[2018-08-27] MEDS: PROMETHAZINE HCL 12.5 MG in SODIUM CHLORIDE 0.9% 50 ML IV PRN ×2 (01:35→09:22)
[2018-08-27] MEDS: AMPICILLIN/SULBACTAM SOD 3,000 MG in 0.9 % SODIUM CHLORIDE 100 ML IV SCH ×4 (02:06→19:19)
[2018-08-27 03:41] LABS: Appearance Urine Clear (Clear); Bilirubin Urine Negative (Negative); Blood Urine Negative (Negative); Color Urine Yellow; Glucose Urine UA Negative (Negative); Ketones Urine Negative (Negative); Leukocyte Esterase Urine Negative (Negative); Nitrite Urine Negative (Negative); Protein Urine Negative (Negative); Specific Gravity Urine 1.017 (1.000-1.030); Urobilinogen Urine Negative (Negative)
[2018-08-27] MEDS: LACTATED RINGER'S 1,000 ML IV SCH ×4 (03:54→13:56)
[2018-08-27 07:51] LABS: Hematocrit (blood only) 35.4 % (37-47); Hemoglobin 11.5 g/dL (12.0-16.0); Immature Granulocytes # (auto) 0.01 K/uL (0.00-0.02); Immature Granulocytes % (auto) 0.2 %; Lymphocytes # (auto) 1.35 K/uL (1.2-3.4); Lymphocytes % (auto) 23.8 %; Mean Corpuscular Hgb Conc 32.5 g/dL (32-36); Mean Corpuscular Volume 90.5 fL (80-100); Mean Platelet Volume 8.4 fL (7.4-10.4); Monocytes # (auto) 0.29 K/uL (0.11-0.59); Monocytes % (auto) 5.1 %; Neutrophils # (auto) 4.03 K/uL (1.4-6.5); Neutrophils % (auto) 70.9 %; Platelet Count 157 K/uL (130-400); RDW Coefficient of Variation 12.6 % (11.5-14.5); RDW Standard Deviation 41.6 fL (36.4-46.3); Red Blood Count 3.91 M/uL (4.2-5.4); White Blood Count 5.68 K/uL (4.8-10.8)
[2018-08-27 08:08] LABS: Albumin Level 3.2 gm/dl (3.4-5.0); BUN Creatinine Ratio 9.6 (10-20); Bilirubin Direct 0.1 mg/dl (0-0.2); Calcium 8.7 mg/dl (8.5-10.1); Creatinine Clr Calc Pharmacy 108.3 ml/min; Est GFR (African American) 107.2; Est GFR (Non-African American) 92.5; Potassium 4.3 mmol/L (3.5-5.1)
[2018-08-27 08:11] LABS: Albumin Globulin Ratio 1.1 (0.9-2); Bilirubin,Total 0.4 mg/dl (0.2-1); Globulin 2.9 gm/dl (2.5-4.0); Total Protein 6.1 gm/dl (6.4-8.2)
--- NOTE | 2018-08-27 08:44 | Surgery Progress Note ---
Date of Service August 27, 2018 Assessment & Plan (1) Gallstone pancreatitis: 43 year-old female with 2 day history of abdominal pain located in epigastrium and RUQ with associated nausea, vomiting, diarrhea, and sweats. Prior episode of abdominal pain 1 week ago, self resolving. No prior history of gallbladder problems. Ultrasound showing small gallstones and polyps, no signs of acute cholecystitis, and CBD within normal caliber at 5 mm. Labs show no leukocytosis. MRCP showing distended gallbladder with wall thickening and edema and pericholecystic fluid consistent with acute cholecystitis. No evidence of pancreatitis or biliary obstruction. Labs: wbc 5.68 t. bili 0.4 d. bili 0.1 AST 106 (365) ALT 235 (439) Alk phos 117 Lipase 122 (88243) Plan: MRCP now showing evidence of acute cholecystitis without biliary obstruction or pancreatitis. Lipase now wnl. Possibly passed small stone which caused bump in LFTs and lipase. Cholecystectomy indicated given evidence of acute cholecystitis. Will determine timing of cholecystectomy either today or tomorrow (to allow inflammation to go down) since patient is still NPO. Continue NPO status Continue IV fluids Continue IV pain management Discussed patients imaging and labs with Dr. Navarro. Plan for laparoscopic cholecystectomy today. Discussed procedure and risks with patient including bleeding, infection, injury to surrounding organs/tissues, bile leak, bile duct injury, cardiopulmonary complications , blood clots. Patient understood. Informed consent will be obtained by Dr. Navarro. Subjective +headache, left side nausea and vomiting throughout the night abdominal pain slightly better and controlled with pain medication but still present. Now all in the right upper side. No back pain states she gets migraines occasionally, usually if she does not take her Effexor she will get headache. Pain in back of left eye with some dizziness, increase in pain with light and sound. Physical Exam Constitutional: WD/WN, vitals as above + obese; no acute distress Respiratory: normal respiratory effort; no respiratory distress and no labored breathing Gastrointestinal (Abdomen): Inspection/Auscultation: abdomen normal to inspection; abdomen not distended Percussion/Palpation: + abdomen tender (RUQ), + guarding (RUQ, + [place] sign) and abdomen soft; abdomen not rigid Skin: no rashes, warm and dry Psychiatric: A+Ox3, euthymic affect Results & Data Vital Signs (Past 12 Hours) Vital Signs Temp Pulse Pulse Resp BP BP Pulse Ox 08/27/18 07:24 36.9 C 66 16 113/76 91 08/27/18 04:00 36.7 C 69 20 100/64 93 08/27/18 00:45 36.4 C L 63 130/86 97 08/27/18 00:04 117 H 08/26/18 23:08 36.7 C 75 18 99/64 L 93 08/26/18 22:20 69 Laboratory Results 08/27/18 08/27/18 08/27/18 Range/Units 07:33 07:33 03:32 WBC 5.68 (4.8-10.8) K/uL RBC 3.91 L (4.2-5.4) M/uL Hgb 11.5 L (12.0-16.0) g/dL Hct 35.4 L (37-47) % MCV 90.5 (80-100) fL MCH 29.4 (25-34) pg MCHC 32.5 (32-36) g/dL RDW Std Deviation 41.6 (36.4-46.3) fL RDW Coeff of Amarilys 12.6 (11.5-14.5) % Plt Count 157 (130-400) K/uL MPV 8.4 (7.4-10.4) fL Immature Gran % (Auto) 0.2 % Neut % (Auto) 70.9 % Lymph % (Auto) 23.8 % [place] % (Auto) 5.1 % Eos % (Auto) 0.0 % Baso % (Auto) 0.0 % Immature Gran # (Auto) 0.01 (0.00-0.02) K/uL Neut # (Auto) 4.03 (1.4-6.5) K/uL Lymph # (Auto) 1.35 (1.2-3.4) K/uL [place] # (Auto) 0.29 (0.11-0.59) K/uL Eos # (Auto) 0.00 (0-0.5) K/uL Baso # (Auto) 0.00 (0-0.2) K/uL Sodium 142 (136-145) mmol/L Potassium 4.3 (3.5-5.1) mmol/L Chloride 108 H (98-107) mmol/L Carbon Dioxide 29 (21-32) mmol/L Anion Gap 4.0 (3-11) BUN 8 (7-18) mg/dl Creatinine 0.78 (0.6-1.2) mg/dl Est Cr Clr Drug Dosing 108.3 ml/min Est GFR ( Amer) 107.2 Est GFR (Non-Af Amer) 92.5 BUN/Creatinine Ratio 9.6 L (10-20) Glucose 99 (70-99) mg/dl Calcium 8.7 (8.5-10.1) mg/dl Total Bilirubin 0.4 (0.2-1) mg/dl Direct Bilirubin 0.1 (0-0.2) mg/dl AST 106 H (15-37) U/L ALT 235 H (12-78) U/L Alkaline Phosphatase 117 (45-117) U/L Troponin I (0-0.045) ng/ml Total Protein 6.1 L D (6.4-8.2) gm/dl Albumin 3.2 L (3.4-5.0) gm/dl Globulin 2.9 (2.5-4.0) gm/dl Albumin/Globulin Ratio 1.1 (0.9-2) Lipase 122 (73-393) U/L Urine Color Yellow Urine Appearance Clear (Clear) Urine pH 6.0 (4.5-7.5) Ur Specific [place] 1.017 (1.000-1.030) Urine Protein Negative (Negative) Urine Glucose (UA) Negative (Negative) Urine Ketones Negative (Negative) Urine Blood Negative (Negative) Urine Nitrite Negative (Negative) Urine Bilirubin Negative (Negative) Urine Urobilinogen Negative (Negative) Ur Leukocyte Esterase Negative (Negative) 08/26/18 08/26/18 08/26/18 Range/Units 11:08 11:08 11:08 WBC 7.74 (4.8-10.8) K/uL RBC 4.50 (4.2-5.4) M/uL Hgb 13.4 (12.0-16.0) g/dL Hct 38.9 (37-47) % MCV 86.4 (80-100) fL MCH 29.8 (25-34) pg MCHC 34.4 (32-36) g/dL RDW Std Deviation 39.5 (36.4-46.3) fL RDW Coeff of Amarilys 12.5 (11.5-14.5) % Plt Count 197 (130-400) K/uL MPV 8.4 (7.4-10.4) fL Immature Gran % (Auto) 0.1 % Neut % (Auto) 68.1 % Lymph % (Auto) 24.0 % [place] % (Auto) 7.8 % Eos % (Auto) 0.0 % Baso % (Auto) 0.0 % Immature Gran # (Auto) 0.01 (0.00-0.02) K/uL Neut # (Auto) 5.27 (1.4-6.5) K/uL Lymph # (Auto) 1.86 (1.2-3.4) K/uL [place] # (Auto) 0.60 H (0.11-0.59) K/uL Eos # (Auto) 0.00 (0-0.5) K/uL Baso # (Auto) 0.00 (0-0.2) K/uL Sodium 140 (136-145) mmol/L Potassium 4.1 (3.5-5.1) mmol/L Chloride 105 (98-107) mmol/L Carbon Dioxide 29 (21-32) mmol/L Anion Gap 6.0 (3-11) BUN 12 (7-18) mg/dl Creatinine 0.92 (0.6-1.2) mg/dl Est Cr Clr Drug Dosing 90.0 ml/min Est GFR ( Amer) 87.8 Est GFR (Non-Af Amer) 75.7 BUN/Creatinine Ratio 13.1 (10-20) Glucose 93 (70-99) mg/dl Calcium 9.7 (8.5-10.1) mg/dl Total Bilirubin 0.7 (0.2-1) mg/dl Direct Bilirubin (0-0.2) mg/dl AST 365 H (15-37) U/L ALT 439 H (12-78) U/L Alkaline Phosphatase 156 H (45-117) U/L Troponin I < 0.015 (0-0.045) ng/ml Total Protein 7.7 (6.4-8.2) gm/dl Albumin 4.0 (3.4-5.0) gm/dl Globulin 3.7 (2.5-4.0) gm/dl Albumin/Globulin Ratio 1.1 (0.9-2) Lipase 38106 H (73-393) U/L Urine Color Urine Appearance (Clear) Urine pH (4.5-7.5) Ur Specific [place] (1.000-1.030) Urine Protein (Negative) Urine Glucose (UA) (Negative) Urine Ketones (Negative) Urine Blood (Negative) Urine Nitrite (Negative) Urine Bilirubin (Negative) Urine Urobilinogen (Negative) Ur Leukocyte Esterase (Negative) Diagnostic Findings MRCP CLINICAL HISTORY: Gallstone pancreatitis. COMPARISON STUDY: Abdominal CT dated 06/01/2017. Abdominal ultrasound dated 08/26/2018. TECHNIQUE: Abdominal MRCP is performed utilizing various T2-weighted sequences in the axial and coronal planes. IV contrast was not administered for this examination. 3-D reformats are created and assessed. FINDINGS: The gallbladder is distended. The gallbladder wall is thickened and edematous, and there is pericholecystic fluid. The appearance is highly concerning for acute cholecystitis. Small gallstones are noted within the gallbladder lumen. The common bile duct measures up to 8 mm. There are no intraluminal filling defects to suggest choledocholithiasis. There is no intrahepatic biliary ductal dilatation. The pancreatic duct is normal in caliber. The unenhanced liver, spleen, adrenal glands, and kidneys are grossly unremarkable. The abdominal aorta is normal in caliber. The pancreas is normal in appearance. No peripancreatic stranding or fluid is identified. There is no bowel obstruction. No abdominal adenopathy is seen. No abdominal ascites is identified. There is no pleural effusion. The visualized bony structures appear intact. IMPRESSION: 1. Cholelithiasis with evidence of acute cholecystitis. 2. There is no intrahepatic biliary ductal dilatation. No choledocholithiasis is seen. 3. There is no MRI evidence of pancreatitis. Correlation with serum amylase/lipase levels will be required.
[2018-08-27] MEDS ORDERED: KETOROLAC TROMETHAMINE 15 MG/ML VIAL IV ONE (08:46)
--- NOTE | 2018-08-27 09:03 | Gastroenterology Progress Note ---
Date of Service August 27, 2018 Assessment & Plan (1) Acute pancreatitis: 43 year old female with abrupt onset upper abdominal pain and nausea since last evening. She is afebrile without leukocytosis w/ significantly elevated lipase and transaminases. ABD US w/ stones but no biliary dilation. DDX discussed, likely gallstone pancreatitis MRCP w/ evidence of gallstones, cholecystitis but no evidence of choledocholithiasis. This AM her abd pain is better controlled and her transaminases are trending down and lipase has near normalized. She likely passed a stone. - Treat the pancreatitis - NPO - LR 200 mL/hr - Antiemetics PRN - Analgesia PRN - No current indication for ERCP - Appreciate general surgery recommendations, timing of cholecystectomy Thank you for allowing us to participate in the care of this patient. Please call with any acute changes, questions or concerns. Please see addendum below with additional recommendation from my supervising physician. (2) Gall bladder stones: (3) Elevated liver enzymes: Subjective Pt was seen and evaluated, chart reviewed. No acute events noted overnight. Suggests abd pain is better controlled on current pain medication regimen. No nausea, vomiting. Moving bowels, passing gas. Was evaluated by general surgery, consideration of cholecystectomy this admission. MRCP negative for retained stone TB: 0.7 --> 0.4 AST: 365 --> 106 ALT: 439 --> 234 ALKP: 156 --> 117 Lipase: 11,000 --> 117 MRCP w/ gallstones, evidence of acute cholecystitis, no intrahepatic biliary ductal dilatation, no choledocholithiasis is seen ABD US w/ gallstones but without biliary dilation + family history of gallbladder disease - family history of pancreatitis Review of Systems Constitutional: no fever, no chills and no fatigue Respiratory: no cough, no dyspnea and no wheezing Cardiovascular: no chest pain, no radiating jaw, neck or arm pain, no dyspnea on exertion and no claudication Gastrointestinal: + abdominal pain; no nausea, no coffee ground emesis, no hematemesis, no constipation, no diarrhea/loose stools, no blood in stools and no melena Physical Exam Constitutional: well developed and well nourished; no acute distress and not ill appearing Respiratory: normal respiratory effort, lungs clear to auscultation Cardiovascular: RRR, no murmur, no edema Gastrointestinal (Abdomen): Inspection/Auscultation: abdomen normal to inspection and normal bowel sounds Percussion/Palpation: + abdomen tender (moderate discomfort reported w/ palpation) and abdomen soft; no guarding and abdomen not rigid Skin: no rashes, warm and dry Results & Data Vital Signs (Past 12 Hours) Vital Signs Temp Pulse Pulse Resp BP BP Pulse Ox 08/27/18 07:24 36.9 C 66 16 113/76 91 08/27/18 04:00 36.7 C 69 20 100/64 93 08/27/18 00:45 36.4 C L 63 130/86 97 08/27/18 00:04 117 H 08/26/18 23:08 36.7 C 75 18 99/64 L 93 08/26/18 22:20 69 Laboratory Results 08/27/18 08/27/18 08/27/18 Range/Units 07:33 07:33 03:32 WBC 5.68 (4.8-10.8) K/uL RBC 3.91 L (4.2-5.4) M/uL Hgb 11.5 L (12.0-16.0) g/dL Hct 35.4 L (37-47) % MCV 90.5 (80-100) fL MCH 29.4 (25-34) pg MCHC 32.5 (32-36) g/dL RDW Std Deviation 41.6 (36.4-46.3) fL RDW Coeff of Amarilys 12.6 (11.5-14.5) % Plt Count 157 (130-400) K/uL MPV 8.4 (7.4-10.4) fL Immature Gran % (Auto) 0.2 % Neut % (Auto) 70.9 % Lymph % (Auto) 23.8 % [place] % (Auto) 5.1 % Eos % (Auto) 0.0 % Baso % (Auto) 0.0 % Immature Gran # (Auto) 0.01 (0.00-0.02) K/uL Neut # (Auto) 4.03 (1.4-6.5) K/uL Lymph # (Auto) 1.35 (1.2-3.4) K/uL [place] # (Auto) 0.29 (0.11-0.59) K/uL Eos # (Auto) 0.00 (0-0.5) K/uL Baso # (Auto) 0.00 (0-0.2) K/uL Sodium 142 (136-145) mmol/L Potassium 4.3 (3.5-5.1) mmol/L Chloride 108 H (98-107) mmol/L Carbon Dioxide 29 (21-32) mmol/L Anion Gap 4.0 (3-11) BUN 8 (7-18) mg/dl Creatinine 0.78 (0.6-1.2) mg/dl Est Cr Clr Drug Dosing 108.3 ml/min Est GFR ( Amer) 107.2 Est GFR (Non-Af Amer) 92.5 BUN/Creatinine Ratio 9.6 L (10-20) Glucose 99 (70-99) mg/dl Calcium 8.7 (8.5-10.1) mg/dl Total Bilirubin 0.4 (0.2-1) mg/dl Direct Bilirubin 0.1 (0-0.2) mg/dl AST 106 H (15-37) U/L ALT 235 H (12-78) U/L Alkaline Phosphatase 117 (45-117) U/L Troponin I (0-0.045) ng/ml Total Protein 6.1 L D (6.4-8.2) gm/dl Albumin 3.2 L (3.4-5.0) gm/dl Globulin 2.9 (2.5-4.0) gm/dl Albumin/Globulin Ratio 1.1 (0.9-2) Lipase 122 (73-393) U/L Urine Color Yellow Urine Appearance Clear (Clear) Urine pH 6.0 (4.5-7.5) Ur Specific [place] 1.017 (1.000-1.030) Urine Protein Negative (Negative) Urine Glucose (UA) Negative (Negative) Urine Ketones Negative (Negative) Urine Blood Negative (Negative) Urine Nitrite Negative (Negative) Urine Bilirubin Negative (Negative) Urine Urobilinogen Negative (Negative) Ur Leukocyte Esterase Negative (Negative) 08/26/18 08/26/18 08/26/18 Range/Units 11:08 11:08 11:08 WBC 7.74 (4.8-10.8) K/uL RBC 4.50 (4.2-5.4) M/uL Hgb 13.4 (12.0-16.0) g/dL Hct 38.9 (37-47) % MCV 86.4 (80-100) fL MCH 29.8 (25-34) pg MCHC 34.4 (32-36) g/dL RDW Std Deviation 39.5 (36.4-46.3) fL RDW Coeff of Amarilys 12.5 (11.5-14.5) % Plt Count 197 (130-400) K/uL MPV 8.4 (7.4-10.4) fL Immature Gran % (Auto) 0.1 % Neut % (Auto) 68.1 % Lymph % (Auto) 24.0 % [place] % (Auto) 7.8 % Eos % (Auto) 0.0 % Baso % (Auto) 0.0 % Immature Gran # (Auto) 0.01 (0.00-0.02) K/uL Neut # (Auto) 5.27 (1.4-6.5) K/uL Lymph # (Auto) 1.86 (1.2-3.4) K/uL [place] # (Auto) 0.60 H (0.11-0.59) K/uL Eos # (Auto) 0.00 (0-0.5) K/uL Baso # (Auto) 0.00 (0-0.2) K/uL Sodium 140 (136-145) mmol/L Potassium 4.1 (3.5-5.1) mmol/L Chloride 105 (98-107) mmol/L Carbon Dioxide 29 (21-32) mmol/L Anion Gap 6.0 (3-11) BUN 12 (7-18) mg/dl Creatinine 0.92 (0.6-1.2) mg/dl Est Cr Clr Drug Dosing 90.0 ml/min Est GFR ( Amer) 87.8 Est GFR (Non-Af Amer) 75.7 BUN/Creatinine Ratio 13.1 (10-20) Glucose 93 (70-99) mg/dl Calcium 9.7 (8.5-10.1) mg/dl Total Bilirubin 0.7 (0.2-1) mg/dl Direct Bilirubin (0-0.2) mg/dl AST 365 H (15-37) U/L ALT 439 H (12-78) U/L Alkaline Phosphatase 156 H (45-117) U/L Troponin I < 0.015 (0-0.045) ng/ml Total Protein 7.7 (6.4-8.2) gm/dl Albumin 4.0 (3.4-5.0) gm/dl Globulin 3.7 (2.5-4.0) gm/dl Albumin/Globulin Ratio 1.1 (0.9-2) Lipase 79407 H (73-393) U/L Urine Color Urine Appearance (Clear) Urine pH (4.5-7.5) Ur Specific [place] (1.000-1.030) Urine Protein (Negative) Urine Glucose (UA) (Negative) Urine Ketones (Negative) Urine Blood (Negative) Urine Nitrite (Negative) Urine Bilirubin (Negative) Urine Urobilinogen (Negative) Ur Leukocyte Esterase (Negative) (1) Acute pancreatitis Acute pancreatitis complication: unspecified Pancreatitis type: unspecified pancreatitis type Qualified Code(s): K85.90 - Acute pancreatitis without necrosis or infection, unspecified
--- NOTE | 2018-08-27 09:33 | Anesthesiology Consultation ---
Date of Service August 27, 2018 Assessment & Plan (1) Encounter for pre-operative examination: Chart Review Chart Review: Acceptable Risk for Surgery History Surgery Operation Date: 08/27/18 09:20 Proposed Procedures p Laparoscopic Cholecystectomy - Lorna Navarro MD Height/Weight Height: 5 ft 6 in Weight: 97.4 kg Allergies Allergy/AdvReac Type Severity Reaction Status Date / Time acetaminophen AdvReac Severe NAUSEA/VOMT Verified 08/26/18 11:14 ING Medications Home Medications Medication Instructions Recorded Confirmed Last Taken bupropion HCl 150 mg PO BID 08/26/18 08/26/18 08/25/18 venlafaxine 75 mg PO DAILY 08/26/18 08/26/18 08/24/18 venlafaxine 150 mg PO DAILY 08/26/18 08/26/18 08/24/18 Active Medications Generic Name Dose Route Start Last Admin Trade Name Freq PRN Reason Stop Dose Admin Lactated Ringer's 1,000 mls @ 200 mls/hr 08/26/18 12:15 08/27/18 09:21 Lr IV 09/25/18 12:14 200 mls/hr .Q5H CUBA Administration Ampicillin Sodium/Sulbactam 108 mls @ 200 mls/hr 08/26/18 20:00 08/27/18 09:19 Sodium 3,000 mg/ Sodium IV 09/05/18 18:44 Infused Chloride Q6H CUBA Infusion Protocol Promethazine HCl 12.5 mg/ 50.5 mls @ 202 mls/hr 08/27/18 00:46 08/27/18 09:22 Sodium Chloride IV 09/26/18 00:45 202 mls/hr Q6H PRN Administration Nausea And Vomiting Morphine Sulfate 3 mg 08/26/18 14:57 08/26/18 18:55 Morphine Sulfate IV 09/09/18 14:56 3 mg Q3H PRN Administration Pain Ondansetron HCl 4 mg 08/26/18 14:57 08/27/18 06:53 Zofran IV 09/25/18 14:56 4 mg Q6H PRN Administration Nausea Past Medical History Medical History Depression (Chronic) Obesity Pancreatitis, acute resolved over night Past Family History Family History Other Cancer Depression Past Surgical History Surgical History H/O: hysterectomy (Chronic) Social History Smoking Status: Never smoker Hx Alcohol Use: Yes alcohol intake frequency: holidays/special occasions only Hx Substance Use: No Physical Exam Vital Signs Last Vital Signs Temp 36.9 C 08/27/18 07:24 Pulse 66 08/27/18 07:24 Resp 16 08/27/18 07:24 BP 113/76 08/27/18 07:24 Pulse Ox 91 08/27/18 07:24 Testing Laboratory Results 08/27/18 07:33 08/27/18 07:33 Urine Color Yellow 08/27/18 03:32 Urine Appearance Clear (Clear) 08/27/18 03:32 Urine pH 6.0 (4.5-7.5) 08/27/18 03:32 Ur Specific [place] 1.017 (1.000-1.030) 08/27/18 03:32 Urine Protein Negative (Negative) 08/27/18 03:32 Urine Glucose (UA) Negative (Negative) 08/27/18 03:32 Urine Ketones Negative (Negative) 08/27/18 03:32 Urine Nitrite Negative (Negative) 08/27/18 03:32 Ur Leukocyte Esterase Negative (Negative) 08/27/18 03:32 Laboratory Tests 08/26/18 08/27/18 11:08 07:33 AST 365 H 106 H ALT 439 H 235 H Alkaline Phosphatase 156 H 117 Lipase 39485 H 122 Electrocardiogram Date: 08/26/18 Findings: + NSR @ (71) and + NSST changes
[2018-08-27] MEDS ORDERED: MIDAZOLAM HCL 1 MG/ML 2ML VIAL ONE (09:39)
[2018-08-27] MEDS ORDERED: ONDANSETRON INJ 2 MG/ML 2 ML VIAL ONE (09:39)
[2018-08-27] MEDS ORDERED: PHENYLEPHRINE HCL 10 MG/ML VIAL ONE (09:39)
[2018-08-27] MEDS ORDERED: SUCCINYLCHOLINE CHLORIDE 20 MG/ML 10 ML VIAL ONE (09:39)
[2018-08-27] MEDS ORDERED: NEOSTIGMINE METHYLSULFATE 5 MG/5 ML SYR ONE (09:39)
[2018-08-27] MEDS ORDERED: DEXAMETHASONE SOD INJ 4 MG/ML VIAL ONE (09:39)
[2018-08-27] MEDS ORDERED: LIDOCAINE HCL 2% 2 ML VIAL/AMP(20MG/ML) INFIL ONE (09:39)
[2018-08-27] MEDS ORDERED: PROPOFOL IV EMULSION 10 MG/ML 20 ML VIAL IV ONE (09:39)
[2018-08-27] MEDS ORDERED: ePHEDrine sulfate 50 MG/ML AMP ONE (09:39)
[2018-08-27] MEDS ORDERED: GLYCOPYRROLATE 0.2 MG/ML VIAL ONE (09:39)
[2018-08-27] MEDS ORDERED: fentaNYL citrate 100 MCG/2 ML VIAL ONE (09:39)
--- NOTE | 2018-08-27 09:53 | History & Physical Bridge Note ---
Date of Service August 27, 2018 History & Physical Bridge Note I have examined the patient, reviewed the History & Physical and in the interval since the performance of the History & Physical I have noted the following changes of clinical significance: no changes noted. I D/W pt and her son about benefits, risks and alternatives of the laparoscopic cholecystectomy, the risks - infection, bleeding, injury CBD, bowel, DVT, biliary leak, , pt and her son understood, they agree wth the surgery, I answered all questions, Supervising Physician Co-Signing Physician Notes HISTORY: Record reviewed. Patient interviewed and examined. Care coordinated with Sandra Galeano PA-C. Please refer to her documentation for patient's history. Briefly, 43 YO female who developed epigastric pain radiating to back and nausea last night after eating. Similar episode about 1 week ago, but not as severe. EXAM: General- no distress Lungs- clear to auscultation; no respiratory distress Cardiovascular- RRR; no murmur; no gallop; no JVD; no pretibial edema Abdomen- + bowel sounds, soft, moderate epigastric tenderness Extremities- no cyanosis; no calf tenderness Neuro- alert, oriented Skin- warm & dry DATA: Laboratory Tests 08/26/18 11:08 Total Bilirubin 0.7 AST 365 H ALT 439 H Alkaline Phosphatase 156 H Lipase 47213 H Laboratory Tests 08/26/18 11:08 Troponin I < 0.015 Other lab studies as noted. Gallbladder US demonstrated cholelithiasis + gallbladder polyps, normal calibre CBD. EKG performed at reviewed and demonstrated 0945 at 70 / minute, T wave inversions V1-3. ASSESSMENT AND PLAN: Gallstone pancreatitis. NPO, IV fluids, analgesics. GI and General Surgery consulted. Please refer to JULIANE Jhaveri's documentation for discussion of other issues.
[2018-08-27] MEDS ORDERED: BUPIVACAINE 0.5 % 5 MG/1 ML MPF 30ML VIAL ONE (10:01)
[2018-08-27] MEDS ORDERED: LIDOCAINE HCL 1% 20 ML VIAL ONE (10:01)
[2018-08-27] MEDS ORDERED: BACITRACIN OINT 15 GM TUBE ONE (11:21)
--- NOTE | 2018-08-27 11:46 | Post Operative Brief Note ---
Immediate Post Op Note v1 Date of Surgery August 27, 2018 Pre & Post Diagnosis Operation Date: 08/27/18 09:20 Pre-Op Diagnosis: Gallstone pancreatitis, acute cholecystitis Post-Op Diagnosis: Gallstone pancreatitis, acute cholecystitis Procedure Operation Date: 08/27/18 09:20 Actual Procedures p Laparoscopic Cholecystectomy(Not Applicable) - Lorna Navarro MD Surgeon Lorna Navarro MD Medical Record Assistant surgical processor Estimated Blood Loss 10 Findings Consistent with Post-Op Diagnosis significant inflammation on gallbladder wall, Fluids 1800ml Specimens gallbladder Anesthesia Type General Complications none Disposition Accompanied Patient To Recovery: Yes Disposition: Recovery Room Overlapping Procedure I was immediately available: during the entire case.
[2018-08-27] MEDS ORDERED: ROCURONIUM BROMIDE 10 MG/ML 5 ML VIAL ONE (12:12)
[2018-08-27] MEDS ORDERED: PROMETHAZINE HCL 6.25 MG in SODIUM CHLORIDE 0.9% 50 ML IV PRN (12:27)
[2018-08-27] MEDS ORDERED: KETOROLAC 30 MG/ML VIAL IV PRN (12:27)
[2018-08-27] MEDS ORDERED: ONDANSETRON INJ 2 MG/ML 2 ML VIAL IV PRN (12:27)
[2018-08-27] MEDS ORDERED: ATROPINE SULFATE 0.1 MG/ML 10ML SYR IV PRN (12:27)
[2018-08-27] MEDS ORDERED: HYDROmorphone INJ 1 MG/ML SYRINGE ONE (12:31)
[2018-08-27] MEDS: HYDROmorphone INJ 1 MG/ML SYRINGE IV PRN ×2 (12:32→12:37)
--- NOTE | 2018-08-27 12:48 | Anesthesiology Progress Note ---
Date of Service August 27, 2018 Anesthesia Post Procedure Vital Signs Vital Signs: Temp Pulse Pulse Pulse Pulse Resp BP 08/27/18 12:45 36.6 C 77 19 08/27/18 12:35 87 19 08/27/18 12:25 94 H 17 08/27/18 12:15 93 H 17 08/27/18 12:07 37.0 C 99 H 16 08/27/18 09:57 36.9 C 69 20 08/27/18 07:24 36.9 C 66 16 08/27/18 04:00 36.7 C 69 20 08/27/18 00:45 36.4 C L 63 08/27/18 00:04 117 H 08/26/18 23:08 36.7 C 75 18 08/26/18 22:20 69 08/26/18 19:42 36.7 C 76 18 08/26/18 16:45 79 08/26/18 15:06 36.8 C 71 18 08/26/18 14:31 21 08/26/18 14:30 17 123/78 08/26/18 14:01 15 08/26/18 14:00 26 H 117/74 08/26/18 13:31 14 08/26/18 13:30 15 123/73 08/26/18 13:01 23 08/26/18 13:00 25 H 132/92 BP BP Pulse Ox 08/27/18 12:45 132/86 99 08/27/18 12:35 123/94 99 08/27/18 12:25 122/86 99 08/27/18 12:15 130/86 98 08/27/18 12:07 139/75 100 08/27/18 09:57 128/82 97 08/27/18 07:24 113/76 91 08/27/18 04:00 100/64 93 08/27/18 00:45 130/86 97 08/27/18 00:04 08/26/18 23:08 99/64 L 93 08/26/18 22:20 08/26/18 19:42 108/72 93 08/26/18 16:45 08/26/18 15:06 112/77 98 08/26/18 14:31 96 08/26/18 14:30 98 08/26/18 14:01 94 07/15/19 14:00 96 08/26/18 13:31 98 08/26/18 13:30 99 08/26/18 13:01 97 08/26/18 13:00 98 Pain Intensity Chest: Pain Intensity: 10 Right Upper Abdomen: Pain Intensity: 4 Transfer of Care Handoff Completed per policy Notes Mental Status: alert / awake / arousable Patient Amnestic to Procedure: Yes Nausea / Vomiting: adequately controlled Pain: adequately controlled Airway Patency, RR, SpO2: stable & adequate BP & HR: stable & adequate Hydration State: stable & adequate Anesthetic Complications: no major complications apparent
[2018-08-27] MEDS ORDERED: OXYCODONE/ACETAMINOPHEN 5mg/325mg TAB PO PRN (13:43)
[2018-08-27] MEDS: MoRPHine SULFATE 4 MG/ML 1 ML CARP\\VIAL IV PRN ×3 (15:42→23:39)
--- NOTE | 2018-08-27 17:28 | Hospitalist Progress Note ---
Date of Service August 27, 2018 Assessment & Plan (1) Gallstone pancreatitis: Patient presented with epigastric and right upper quadrant pain x1 day with associated nausea and diarrhea. In ER patient afebrile, BP:128/87, P: 108 and 78, RR: 18 -36 (respirations were documented as high as 36 however upon my evaluation patient respirations 18-20, ER nurse reports respirations were documented as part of captured vitals so these respirations may have not been accurate) WBC: 7, H/H: 13/38, total bili: 0.7, AST: 65, ALT: 439, alk phos: 156, lipase: 11,214 Gallbladder ultrasound: Several small gallstones as well as several small cholesterol polyps. Normal caliber bile ducts. -continue ampicillin which was started on 08/26/18 -Laparoscopic Cholecystectomy was performed on 08/27/18 by general surgery after lipase had normalized -continue IV fluids of lactated ringer's 50 cc/hr -anti-emetics and pain medications as needed -continue clear liquid diet (2) Depression: Stable -Hold venlafaxine, bupropion for now, can resume when feeling better from the Laparoscopic Cholecystectomy DVT Prophylaxis -SCDs, ambulate Follows with Dr Tovar for routine care Subjective Patient on medical gordon after Laparoscopic Cholecystectomy. patient has not passed bowel movement yet. she has been able to urinate. no chest pain. no shortness of breath. no palpitations Physical Exam Constitutional: WD/WN, vitals as above Eyes: PERRL, conjunctivae normal, anicteric sclerae EOM intact bilaterally ENMT: external ear and nose normal, oropharynx normal Neck: trachea midline, no thyromegaly Respiratory: normal respiratory effort, lungs clear to auscultation Cardiovascular: Rate/Rhythm: regular rate and regular rhythm Gastrointestinal (Abdomen): soft, has dressing over laproscopic sites, bowel sounds present Musculoskeletal: Head/Neck/Chest: normocephalic and head atraumatic Neurologic: PERRL, EOMI, accommodation nl, no face palsy, no dysarthria CN's II-XI intact bilaterally Psychiatric: A+Ox3, euthymic affect Results & Data Vital Signs (Past 12 Hours) Vital Signs Temp Pulse Pulse Pulse Resp BP Pulse Ox 08/27/18 15:35 82 08/27/18 15:02 36.7 C 78 16 127/83 94 08/27/18 13:51 37 C 83 18 129/84 99 08/27/18 12:55 71 17 129/87 97 08/27/18 12:45 36.6 C 77 19 132/86 99 08/27/18 12:35 87 19 123/94 99 08/27/18 12:25 94 H 17 122/86 99 08/27/18 12:15 93 H 17 130/86 98 08/27/18 12:07 37.0 C 99 H 16 139/75 100 08/27/18 09:57 36.9 C 69 20 128/82 97 08/27/18 07:24 36.9 C 66 16 113/76 91
[2018-08-27 18:46] LABS: Eosinophils # (auto) 0.01 K/uL (0-0.5); Eosinophils % (auto) 0.1 %; Hematocrit (blood only) 34.1 % (37-47); Hemoglobin 11.3 g/dL (12.0-16.0); Immature Granulocytes # (auto) 0.01 K/uL (0.00-0.02); Immature Granulocytes % (auto) 0.1 %; Lymphocytes # (auto) 1.94 K/uL (1.2-3.4); Mean Platelet Volume 8.5 fL (7.4-10.4); Monocytes # (auto) 0.36 K/uL (0.11-0.59); Monocytes % (auto) 5.4 %; Neutrophils # (auto) 4.37 K/uL (1.4-6.5); Neutrophils % (auto) 65.4 %; Platelet Count 150 K/uL (130-400); RDW Coefficient of Variation 12.6 % (11.5-14.5); RDW Standard Deviation 40.2 fL (36.4-46.3); Red Blood Count 3.83 M/uL (4.2-5.4); White Blood Count 6.69 K/uL (4.8-10.8)
[2018-08-27 18:48] LABS: Mean Corpuscular Hgb Conc 33.1 g/dL (32-36)
[2018-08-27] MEDS: BuPROPion SR 150 MG TABCR PO SCH (21:01)
[2018-08-28] MEDS: AMPICILLIN/SULBACTAM SOD 3,000 MG in 0.9 % SODIUM CHLORIDE 100 ML IV SCH ×4 (02:33→20:08)
[2018-08-28] MEDS: MoRPHine SULFATE 4 MG/ML 1 ML CARP\\VIAL IV PRN ×2 (02:39→05:52)
--- NOTE | 2018-08-28 04:40 | Communication Note ---
Date of Service: August 28, 2018 Patient experienced midsternal chest pressure associated with postop pain. No SOB. Genl- no distress Lungs- clear Heart- RRR EKG @ 2256 showed NSR, T-wave flattening / inversion V2-V6. Doubt acute coronary syndrome, but will check serial troponins and echo.
[2018-08-28 07:19] LABS: Eosinophils # (auto) 0.01 K/uL (0-0.5); Eosinophils % (auto) 0.2 %; Hematocrit (blood only) 34.5 % (37-47); Hemoglobin 11.1 g/dL (12.0-16.0); Immature Granulocytes # (auto) 0.01 K/uL (0.00-0.02); Immature Granulocytes % (auto) 0.2 %; Lymphocytes # (auto) 2.08 K/uL (1.2-3.4); Lymphocytes % (auto) 31.9 %; Mean Corpuscular Hgb Conc 32.2 g/dL (32-36); Mean Corpuscular Volume 91.3 fL (80-100); Mean Platelet Volume 8.6 fL (7.4-10.4); Monocytes # (auto) 0.47 K/uL (0.11-0.59); Monocytes % (auto) 7.2 %; Neutrophils # (auto) 3.95 K/uL (1.4-6.5); Neutrophils % (auto) 60.5 %; Platelet Count 166 K/uL (130-400); RDW Coefficient of Variation 12.5 % (11.5-14.5); RDW Standard Deviation 41.8 fL (36.4-46.3); Red Blood Count 3.78 M/uL (4.2-5.4); White Blood Count 6.52 K/uL (4.8-10.8)
[2018-08-28 07:57] LABS: Alanine Aminotransferase 158 U/L (12-78); Albumin Level 3.1 gm/dl (3.4-5.0); Aspartate Aminotransferase 41 U/L (15-37); BUN Creatinine Ratio 6.4 (10-20); Blood Urea Nitrogen 5 mg/dl (7-18); Calcium 8.6 mg/dl (8.5-10.1); Carbon Dioxide 32 mmol/L (21-32); Chloride 105 mmol/L (98-107); Creatinine Clr Calc Pharmacy 109.7 ml/min; Est GFR (African American) 108.8; Est GFR (Non-African American) 93.9; Glucose 102 mg/dl (70-99); Potassium 3.8 mmol/L (3.5-5.1); Sodium 141 mmol/L (136-145)
[2018-08-28 08:02] LABS: Alkaline Phosphatase 107 U/L (45-117); Bilirubin,Total 0.3 mg/dl (0.2-1); Total Protein 6.1 gm/dl (6.4-8.2); Troponin I < 0.015 ng/ml (0-0.045)
[2018-08-28] MEDS: BuPROPion SR 150 MG TABCR PO SCH ×2 (08:02→20:09)
[2018-08-28] MEDS: VENLAFAXINE HCL XR 75 MG CAPXR PO SCH (08:02)
[2018-08-28] MEDS: VENLAFAXINE HCL XR 150 MG CAPXR PO SCH (08:02)
[2018-08-28] MEDS: LACTATED RINGER'S 1,000 ML IV SCH (08:05)
--- NOTE | 2018-08-28 08:08 | Operative Report ---
DATE OF OPERATION: 08/27/2018 PREOPERATIVE DIAGNOSES: Acute cholecystitis, gallstone, pancreatitis. POSTOPERATIVE DIAGNOSES: Acute cholecystitis, gallstone, pancreatitis. OPERATION: Laparoscopic cholecystectomy. SURGEON: Lorna Navarro MD ANESTHESIA: General. ESTIMATED BLOOD LOSS: About 10 mL. FINDINGS: Significant inflammation on the gallbladder wall, diagnosis of acute cholecystitis. COMPLICATIONS: None. INDICATIONS FOR THE PROCEDURE: This is a 43-year-old female who was admitted to hospital for gallstone pancreatitis. The patient had ERCP yesterday and diagnoses of acute cholecystitis with gallstone. The patient will be required to do the laparoscopic cholecystectomy, possible open, possible cholangiogram. I did talk to the patient about the benefit, risk, alternate procedure. I indicated the risks may include but not limited such as bleeding, infection, bile leak, injury to common bile duct, DVT, even . The patient and patient's son understand. They agreed to proceed with procedure, the patient's son signed informed consent and I answered all questions. DETAILS OF PROCEDURE: We brought the patient to the OR, put the patient in the supine position. The patient received SCD on bilateral legs to prevent DVT. Also, the patient received prophylactic antibiotic before went to the OR and the patient received general anesthesia without difficulty. The abdomen was prepped and draped in routine sterile fashion. After time out, I injected local anesthesia by using 1% lidocaine mixed with 0.5% Marcaine just above umbilical. Then, I made a small incision just above umbilicus, opened fascia and opened peritoneum under direct vision, put a Pierre trocar in, connected to CO2 to create pneumoperitoneum. Flow rate at 6 liter per minute. Pressure not more than 14 mmHg. Once we got a nice pneumoperitoneum, we put the camera in, looked around the abdomen shows normal finding on the liver; however, the patient has some bile leak around the gallbladder. There was some bile fluid around the gallbladder. Significant inflammation on the gallbladder wall confirmed diagnosis of acute cholecystitis. Then, we put another two 5 mm trocar on the right upper quadrant whereas 12 trocar on the epigastric area. Then, we put a grasper to hold the base of the gallbladder direction to the diaphragm and put another grasper to hold the pouch of gallbladder, put the latter to explore the triangle of [place]. The cystic duct was identified and mobilized. The cystic duct was significant dilatation size about 0.8 cm diameter, so I choose 1 cm clip, double clipped proximal cystic duct, one on the distal cystic duct. I used a scissor to transection of cystic duct. Rechecked, no bile leak. Then, the cystic artery was identified and mobilized. I put two 10 mm metal clip on the cystic artery on the distal cystic artery. I used a scissor to transection cystic artery. Rechecked, no active bleeding. Then we used the Bovie to take down the gallbladder from the liver bed. Rechecked the liver bed, no bile leak and no active bleeding. Then we removed the gallbladder through the catch bag, then we reinserted Pierre trocar in, connected to CO2 to create pneumoperitoneum, again looked around the abdomen, no bile leak and no active bleeding from the liver bed. Then we removed all trocar under direct vision. No active bleeding from the trocar sites. Pneumoperitoneum was released. I closed the umbilical incision, fascial layer by using #1 Vicryl [id number] x2, closed subcutaneous layer by using 2-0 Vicryl interrupted and closed skin by using 4-0 Vicryl continuous running, closed the epigastric incision, fascial layer by using #1 Vicryl [id number] x2, subcutaneous layer by using 2-0 Vicryl interruptedly, skin by using 4-0 Vicryl interruptedly, closed another two 5 mm trocar site only by using 4-0 Vicryl. Then we put the dressing on. The patient tolerated the procedure well. All instrument, needle, sponge count were correct x2 at the end of the case. The patient was transferred to recovery room in stable condition. After procedure, I did talk to the patient and family member about OR finding and procedure we did, they understand. I attest to the content of the Intraoperative Record and any orders documented therein. Any exceptions are noted below. [id number]
[2018-08-28] MEDS ORDERED: NAPROXEN 250 MG TAB PO STA (10:05)
[2018-08-28] MEDS: ONDANSETRON INJ 2 MG/ML 2 ML VIAL IV PRN (10:34)
--- NOTE | 2018-08-28 10:46 | Surgery Progress Note ---
Date of Service F/U s/P laparosocpic cholecystectomy, POD 1 doing better, less abdominal pain, pt has some nausea, no fever, August 28, 2018 Assessment & Plan (1) Gallstone pancreatitis: 43 year-old female with 2 day history of abdominal pain located in epigastrium and RUQ with associated nausea, vomiting, diarrhea, and sweats. Prior episode of abdominal pain 1 week ago, self resolving. No prior history of gallbladder problems. Ultrasound showing small gallstones and polyps, no signs of acute cholecystitis, and CBD within normal caliber at 5 mm. Labs show no leukocytosis. MRCP showing distended gallbladder with wall thickening and edema and pericholecystic fluid consistent with acute cholecystitis. No evidence of pancreatitis or biliary obstruction. Labs: wbc 5.68 t. bili 0.4 d. bili 0.1 AST 106 (365) ALT 235 (439) Alk phos 117 Lipase 122 ([id number]) Plan: MRCP now showing evidence of acute cholecystitis without biliary obstruction or pancreatitis. Lipase now wnl. Possibly passed small stone which caused bump in LFTs and lipase. Cholecystectomy indicated given evidence of acute cholecystitis. Will determine timing of cholecystectomy either today or tomorrow (to allow inflammation to go down) since patient is still NPO. Continue NPO status Continue IV fluids Continue IV pain management Discussed patients imaging and labs with Dr. Navarro. Plan for laparoscopic cholecystectomy today. Discussed procedure and risks with patient including bleeding, infection, injury to surrounding organs/tissues, bile leak, bile duct injury, cardiopulmonary complications , blood clots. Patient understood. Informed consent will be obtained by Dr. Navarro. 08/28/2018 10:44am doing better, OOB possible go home tomorrow, post-op care instruction was given, F/U ma in 1-2 weeks, Subjective Pt was seen and evaluated, chart reviewed. No acute events noted overnight. Suggests abd pain is better controlled on current pain medication regimen. No nausea, vomiting. Moving bowels, passing gas. Was evaluated by general surgery, consideration of cholecystectomy this admission. MRCP negative for retained stone TB: 0.7 --> 0.4 AST: 365 --> 106 ALT: 439 --> 234 ALKP: 156 --> 117 Lipase: 11,000 --> 117 MRCP w/ gallstones, evidence of acute cholecystitis, no intrahepatic biliary ductal dilatation, no choledocholithiasis is seen ABD US w/ gallstones but without biliary dilation + family history of gallbladder disease - family history of pancreatitis Physical Exam Constitutional: WD/WN, vitals as above well developed and well nourished Neck: trachea midline, no thyromegaly Respiratory: normal respiratory effort, lungs clear to auscultation normal respiratory effort Cardiovascular: RRR, no murmur, no edema Rate/Rhythm: regular rate and regular rhythm Gastrointestinal (Abdomen): Percussion/Palpation: abdomen soft no distend, all incisions intact, no redness, BS + Neurologic: awake Psychiatric: Orientation: alert and oriented x 3 Results & Data Vital Signs (Past 12 Hours) Vital Signs Temp Pulse Pulse Pulse Resp BP BP 08/28/18 08:00 80 08/28/18 07:54 36.7 C 71 18 113/74 08/28/18 04:00 36.9 C 79 19 101/66 08/28/18 00:30 90 08/27/18 23:38 36.6 C 69 20 144/80 H 08/27/18 22:47 37.0 C 91 H 18 118/73 Pulse Ox 08/28/18 08:00 08/28/18 07:54 93 08/28/18 04:00 92 08/28/18 00:30 08/27/18 23:38 90 08/27/18 22:47 95 Laboratory Results Abnormal lab results 08/27/18 08/28/18 08/28/18 Range/Units 18:18 06:39 06:39 RBC 3.83 L 3.78 L (4.2-5.4) M/uL Hgb 11.3 L 11.1 L (12.0-16.0) g/dL Hct 34.1 L 34.5 L (37-47) % BUN 5 L (7-18) mg/dl BUN/Creatinine Ratio 6.4 L (10-20) Glucose 102 H (70-99) mg/dl AST 41 H (15-37) U/L ALT 158 H (12-78) U/L Total Protein 6.1 L (6.4-8.2) gm/dl Albumin 3.1 L (3.4-5.0) gm/dl
--- NOTE | 2018-08-28 11:37 | Hospitalist Progress Note ---
Date of Service August 28, 2018 Assessment & Plan (1) Gallstone pancreatitis: Status post laparoscopic cholecystectomy yesterday. No evidence if and her operative cholangiogram was performed, but patient reports that surgeon states he got everything. Will confirm with surgery this status as father at bedside is very concerned. Continue postop recovery supportive care efforts. Minimize narcotic use as patient does not prefer these. Ambulate as tolerated early. Diet per surgery (2) Post-operative pain: Possibly secondary to sequelae from laparoscopic procedure. There is no evidence of acute coronary syndrome overnight. Serial troponins were negative. Echocardiogram was ordered and is pending read. She reports improvement of her chest pain and is focused more in the right upper quadrant postoperative area at this time. This is improved with ice per her report. Minimize narcotics as above. (3) Depression: Continue home bupropion and Effexor (4) Headache: Naproxen x1 dose given to abort headache. (5) DVT prophylaxis: SCDs, appreciate surgical clearance for DVT prophylaxis in the setting of recent pancreatitis (inflammation), and decreased ambulation postoperatively Full code Dispo-continue hospitalization. Miriam Ramos DO [facility] Hospitalist Subjective 43-year-old female presented to the ER with right-sided chest pain that began 1 day prior. She tried Gas-X, antacids and Pepto-Bismol without relief. She tried ibuprofen without relief. She had associated nausea and belching but no vomiting and reported watery diarrhea and associated chills without fever. Her pain was described as sharp and stabbing radiating to her back. On physical exam she had a positive Garcia sign with a soft nontender abdomen was slightly distended. An x-ray revealed no cardiopulmonary disease, and gallbladder ultrasound revealed several small gallstones and several small cholesterol polyps with normal caliber bile ducts. No evidence of cholecystitis was seen on the ultrasound. Her lipase was 11,000 and she was started on copious IV fluid resuscitation. She was admitted to the hospitalist service and GI was consulted. An MRCP was evaluated ordered revealing cholelithiasis with evidence of acute Xin cystitis. There was no intrahepatic biliary ductal dilation and no choledocholithiasis was seen. There was also no evidence of pancreatitis on MRI. The following day her lipase resolved to 122. Based on the findings and clinical presentation she was thought to have gallstone pancreatitis and underwent a laparoscopic cholecystectomy on 08/27. Postoperatively she experienced midsternal chest pressure without shortness of breath. She was seen overnight by the hospitalist and an EKG was performed revealing no evidence of acute coronary syndrome. Serial troponins were negative and echocardiogram was ordered and is still pending with read currently pending. This morning she is reporting a headache that is limiting her movement. She does still have some right upper quadrant pain and states this is somewhat improved with positive flatus this morning. She reports that chest pain from last night has improved as well. Ice is helping her right upper quadrant pain. She has had issues with narcotics and prefers to avoid these. She is still nauseous but is tolerating Jell-O and other clear liquids. She is uninterested in solid food at this time. Review of Systems Review of Systems: All systems reviewed & are unremarkable except as noted in HPI & below Physical Exam Physical Exam: CONSTITUTIONAL: WNWD, vitals as above, generally ill-appearing from headache EYES: normal conjunctivae, no scleral icterus ENT: MMM, tongue red from Jello RESPIRATORY: clear to auscultation bilaterally, no crackles, rales or wheezes, normal respiratory effort CARDIOVASCULAR: regular rate and rhythm, S1 and 2 heard without murmurs, gallops or rubs, no JVD, no peripheral edema GASTROINTESTINAL: normal bowel sounds, soft, tenderness around laparoscopic incision sites which are covered with gauze that is c/d/i MUSCULOSKELETAL: weak generally but moving extremities with ease symmetrically, head is normocephalic and atraumatic SKIN: warm and dry, and wounds above. NEUROLOGIC: no gross focal deficits PSYCHIATRIC: alert cooperative and oriented to person, place and time. Results & Data Vital Signs (Past 12 Hours) Vital Signs Temp Pulse Pulse Pulse Resp BP BP 08/28/18 08:00 80 08/28/18 07:54 36.7 C 71 18 113/74 08/28/18 04:00 36.9 C 79 19 101/66 08/28/18 00:30 90 08/27/18 23:38 36.6 C 69 20 144/80 H Pulse Ox 08/28/18 08:00 08/28/18 07:54 93 08/28/18 04:00 92 08/28/18 00:30 08/27/18 23:38 90 Laboratory Results Short CBC 08/27/18 08/28/18 Range/Units 18:18 06:39 WBC 6.69 6.52 (4.8-10.8) K/uL Hgb 11.3 L 11.1 L (12.0-16.0) g/dL Hct 34.1 L 34.5 L (37-47) % Plt Count 150 166 (130-400) K/uL BMP 08/28/18 06:39 Sodium 141 Potassium 3.8 Chloride 105 Carbon Dioxide 32 BUN 5 L Creatinine 0.77 Glucose 102 H Calcium 8.6 Cardiac Enzymes 08/28/18 08/28/18 Range/Units 00:26 06:39 Troponin I < 0.015 < 0.015 (0-0.045) ng/ml Liver Function 08/28/18 Range/Units 06:39 Total Bilirubin 0.3 (0.2-1) mg/dl AST 41 H (15-37) U/L ALT 158 H (12-78) U/L Alkaline Phosphatase 107 (45-117) U/L Albumin 3.1 L (3.4-5.0) gm/dl Medications Administered Current Inpatient Medications Bupropion HCl (Wellbutrin-Sr) 150 mg PO BID [facility] Stop: 09/26/18 20:59 Last Admin: 08/28/18 08:02 Dose: 150 mg Documented by: Ampicillin Sodium/Sulbactam Sodium 3,000 mg/ Sodium Chloride 108 mls @ 200 mls/hr IV Q6H [facility]; Protocol Stop: 09/05/18 18:44 Last Infusion: 08/28/18 08:40 Dose: Infused Documented by: Promethazine HCl 12.5 mg/ (Sodium Chloride) 50.5 mls @ 202 mls/hr IV Q6H PRN PRN Reason: Nausea And Vomiting Stop: 09/26/18 00:45 Last Infusion: 08/27/18 09:37 Dose: Infused Documented by: Lactated Ringer's (Lr) 1,000 mls @ 50 mls/hr IV .Q20H [facility] Stop: 09/26/18 11:59 Last Admin: 08/28/18 08:05 Dose: 50 mls/hr Documented by: Morphine Sulfate (Morphine Sulfate) 3 mg IV Q3H PRN PRN Reason: Pain Stop: 09/09/18 14:56 Last Admin: 08/28/18 05:52 Dose: 3 mg Documented by: Ondansetron HCl (Zofran) 4 mg IV Q6H PRN PRN Reason: Nausea Stop: 09/25/18 14:56 Last Admin: 08/28/18 10:34 Dose: 4 mg Documented by: Oxycodone/Acetaminophen (Percocet 5mg/325mg) 1 tab PO Q4H PRN PRN Reason: Pain Stop: 09/10/18 13:42 Venlafaxine HCl (Effexor Extended Release) 75 mg PO DAILY [facility] Stop: 09/27/18 08:59 Last Admin: 08/28/18 08:02 Dose: 75 mg Documented by: Venlafaxine HCl (Effexor Extended Release) 150 mg PO DAILY [facility] Stop: 09/27/18 08:59 Last Admin: 08/28/18 08:02 Dose: 150 mg Documented by:
[2018-08-29] MEDS: AMPICILLIN/SULBACTAM SOD 3,000 MG in 0.9 % SODIUM CHLORIDE 100 ML IV SCH ×2 (02:21→07:47)
[2018-08-29] MEDS: LACTATED RINGER'S 1,000 ML IV SCH ×2 (02:22→17:06)
[2018-08-29] MEDS: VENLAFAXINE HCL XR 150 MG CAPXR PO SCH (07:44)
[2018-08-29] MEDS: VENLAFAXINE HCL XR 75 MG CAPXR PO SCH (07:44)
[2018-08-29] MEDS: BuPROPion SR 150 MG TABCR PO SCH ×2 (07:44→20:48)
[2018-08-29 08:05] LABS: Hematocrit (blood only) 32.7 % (37-47); Hemoglobin 10.8 g/dL (12.0-16.0); Mean Corpuscular Volume 88.4 fL (80-100); Mean Platelet Volume 8.1 fL (7.4-10.4); Platelet Count 135 K/uL (130-400); RDW Coefficient of Variation 12.4 % (11.5-14.5); RDW Standard Deviation 40.2 fL (36.4-46.3); White Blood Count 4.64 K/uL (4.8-10.8)
[2018-08-29 08:59] LABS: BUN Creatinine Ratio 6.7 (10-20); Calcium 8.6 mg/dl (8.5-10.1); Creatinine Clr Calc Pharmacy 106.4 ml/min; Est GFR (African American) 105.5; Potassium 3.7 mmol/L (3.5-5.1)
--- NOTE | 2018-08-29 11:32 | Surgery Progress Note ---
Date of Service August 29, 2018 Assessment & Plan (1) Gallstone pancreatitis: POD # 2 s/p laparoscopic cholecystectomy - vitals stable, afebrile - post op pain improving, chest pain resolved - + nausea after eating, no vomiting - ambulating hallway - LFTS (yesterday, not checked today) improved - cesar anand and alk kimberlys wnl Plan: Okay for discharge from surgical standpoint advance diet as tolerated encouraged ambulating in hallway to release gas and help with pain control discharge instructions reviewed f/u surgical office in 1-[address] Navarro has seen and examined pt, agrees with above Subjective feeling much better today than yesterday still having nausea after eating, no vomiting has not had any pain medication since yesterday morning had chest pain postoperatively, serial troponins and ECHO wnl, EF 60-65% passing flatus ambulating hallway Physical Exam Constitutional: WD/WN, vitals as above no acute distress and not ill appearing Respiratory: normal respiratory effort; no respiratory distress Gastrointestinal (Abdomen): Inspection/Auscultation: abdomen normal to inspection; abdomen not distended Percussion/Palpation: + abdomen tender (at incision sites and RUQ) and abdomen soft; no guarding and abdomen not rigid Skin: no rashes, warm and dry + incision (covered with dressings, spotting present) Psychiatric: A+Ox3, euthymic affect Results & Data Vital Signs (Past 12 Hours) Vital Signs Temp Pulse Pulse Resp BP Pulse Ox 08/29/18 11:17 36.9 C 78 18 112/75 97 08/29/18 08:00 93 H 08/29/18 07:56 36.8 C 78 18 118/77 92 08/29/18 04:30 79 08/29/18 04:13 36.8 C 66 18 104/67 96 Laboratory Results 08/29/18 08/29/18 Range/Units 07:55 07:55 WBC 4.64 L (4.8-10.8) K/uL RBC 3.70 L (4.2-5.4) M/uL Hgb 10.8 L (12.0-16.0) g/dL Hct 32.7 L (37-47) % MCV 88.4 (80-100) fL MCH 29.2 (25-34) pg MCHC 33.0 (32-36) g/dL RDW Std Deviation 40.2 (36.4-46.3) fL RDW Coeff of Amarilys 12.4 (11.5-14.5) % Plt Count 135 (130-400) K/uL MPV 8.1 (7.4-10.4) fL Sodium 141 (136-145) mmol/L Potassium 3.7 (3.5-5.1) mmol/L Chloride 104 (98-107) mmol/L Carbon Dioxide 32 (21-32) mmol/L Anion Gap 5.0 (3-11) BUN 5 L (7-18) mg/dl Creatinine 0.79 (0.6-1.2) mg/dl Est Cr Clr Drug Dosing 106.4 ml/min Est GFR ( Amer) 105.5 Est GFR (Non-Af Amer) 91.0 BUN/Creatinine Ratio 6.7 L (10-20) Glucose 88 (70-99) mg/dl Calcium 8.6 (8.5-10.1) mg/dl
[2018-08-29] MEDS ORDERED: FAMOTIDINE 20MG/5ML IV PUSH IV PRN (12:19)
[2018-08-29] MEDS ORDERED: FAMOTIDINE 20 MG in SYRINGE 3 ML IV PRN (12:25)
[2018-08-29] MEDS ORDERED: METOPROLOL TARTRATE 1 MG/ML VIAL IV ONE (13:01)
[2018-08-29] MEDS ORDERED: dilTIAZem HCl 5 MG/ML 5 ML VIAL IV ONE (13:38)
--- NOTE | 2018-08-29 13:39 | Hospitalist Progress Note ---
Date of Service August 29, 2018 Assessment & Plan (1) Atrial flutter with rapid ventricular response: Converted after 1 dose of Lopressor 5 mg IV. Likely secondary to recent pancreatitis, fluid shifts, postop recovery and acute cholecystitis. Echo was normal yesterday revealing no evidence of valvular disease, TSH is normal on lab work today. She is low risk for pulmonary embolus and is not working to breathe or hypoxic. (2) Gallstone pancreatitis: Status post laparoscopic cholecystectomy POD#2. She had an episode of atrial fibrillation with rapid ventricular response which was read as atrial flutter on EKG. She had symptoms with this including chest tightness which resolved upon conversion after Lopressor 5 mill grams IV was given. Lab work is unremarkable aside from lactate which is 2.3. General surgery was notified of the change and ordered and a liver ultrasound. Chest x-ray was unremarkable and clear. She was clinically improved after converting to sinus rhythm again. Will remain in PCU on telemetry. Consult cardiology for further recommendations moving forward. No anticoagulations started at this time.Unasyn was stopped today. (3) Post-operative pain: Secondary to laparoscopic procedure, noncardiac in origin. Improved today. (4) Depression: Continue home bupropion and Effexor (5) Headache: Resolved (6) DVT prophylaxis: SCDs, appreciate surgical clearance for DVT prophylaxis in the setting of recent pancreatitis (inflammation), and decreased ambulation postoperatively Full code Dispo-continue hospitalization. Miriam Ramos DO [facility] Hospitalist Subjective She was doing well this morning and tolerating a clear liquid diet for breakfast. She reports that her pain is improved in her surgical site. She was found to be tachycardic with a heart rate in the 160s. EKG revealed atrial flutter with variable block. She was reporting chest pressure but denied any difficulty breathing. She reported dizziness. She otherwise was feeling well. Lopressor 5mg IV was pushed at bedside with HR response to low 100s and then went right back to around 145-150bpm. She was transferred to PCU and prior to Diltiazem administration she converted to sinus rhythm. She went back into atr ial flutter and got up to use the bathroom. When she returned to bed she converted back to sinus rhythm again. Dr. Navarro was notified by me of the status change. Labs and CXR pending. Cardiology was consulted. Ativan PO ordered to help with pain and anxiety. Review of Systems Review of Systems: All systems reviewed & are unremarkable except as noted in HPI & below Physical Exam Physical Exam: CONSTITUTIONAL: WNWD, vitals as above, generally ill-appearing EYES: normal conjunctivae, no scleral icterus ENT: MMM RESPIRATORY: clear to auscultation bilaterally, no crackles, rales or wheezes, normal respiratory effort CARDIOVASCULAR: tachy rate and irreg rhythm, S1 and 2 heard without murmurs, gallops or rubs, no JVD, no peripheral edema GASTROINTESTINAL: normal bowel sounds, soft, tenderness around laparoscopic incision sites which are covered with gauze that is c/d/i MUSCULOSKELETAL: ambulatory, head is normocephalic and atraumatic SKIN: warm and dry, and wounds above. NEUROLOGIC: no gross focal deficits PSYCHIATRIC: alert cooperative and oriented to person, place and time. Results & Data Vital Signs (Past 12 Hours) Vital Signs Temp Pulse Pulse Pulse Pulse Resp BP 08/29/18 13:25 136 H 08/29/18 13:02 141 H 126/85 08/29/18 12:58 120 H 20 08/29/18 12:50 36.8 C 169 H 22 08/29/18 11:17 36.9 C 78 18 08/29/18 08:00 93 H 08/29/18 07:56 36.8 C 78 18 08/29/18 04:30 79 08/29/18 04:13 36.8 C 66 18 BP BP Pulse Ox 08/29/18 13:25 121/88 96 08/29/18 13:02 08/29/18 12:58 116/73 97 08/29/18 12:50 142/96 H 98 08/29/18 11:17 112/75 97 08/29/18 08:00 08/29/18 07:56 118/77 92 08/29/18 04:30 08/29/18 04:13 104/67 96 Laboratory Results Short CBC 08/29/18 08/29/18 Range/Units 07:55 13:37 WBC 4.64 L 5.01 (4.8-10.8) K/uL Hgb 10.8 L 11.6 L (12.0-16.0) g/dL Hct 32.7 L 34.7 L (37-47) % Plt Count 135 166 (130-400) K/uL BMP 08/29/18 08/29/18 07:55 13:38 Sodium 141 141 Potassium 3.7 3.4 L Chloride 104 107 Carbon Dioxide 32 32 BUN 5 L 6 L Creatinine 0.79 0.89 Glucose 88 89 Calcium 8.6 8.9 Cardiac Enzymes 08/29/18 08/29/18 Range/Units 13:38 13:38 Troponin I < 0.015 Cancelled (0-0.045) ng/ml Liver Function 08/29/18 Range/Units 13:38 Total Bilirubin 0.3 (0.2-1) mg/dl AST 28 (15-37) U/L ALT 122 H (12-78) U/L Alkaline Phosphatase 113 (45-117) U/L Albumin 3.4 (3.4-5.0) gm/dl lactate 2.3 Diagnostic Findings SINGLE VIEW CHEST CLINICAL HISTORY: Atrial flutter. FINDINGS: An AP, portable, upright chest radiograph is compared to study dated 08/26/2018 and correlated with chest CT dated 04/29/2014. The examination is degraded by portable technique and patient rotation. The cardiomediastinal silhouette is unremarkable. There is bibasilar atelectasis. No airspace consolidation or large pleural effusion is identified. No pneumothorax is seen. The bony thorax is grossly intact. IMPRESSION: No acute cardiopulmonary abnormality. Medications Administered Current Inpatient Medications Bupropion HCl (Wellbutrin-Sr) 150 mg PO BID [facility] Stop: 09/26/18 20:59 Last Admin: 08/29/18 07:44 Dose: 150 mg Documented by: Promethazine HCl 12.5 mg/ (Sodium Chloride) 50.5 mls @ 202 mls/hr IV Q6H PRN PRN Reason: Nausea And Vomiting Stop: 09/26/18 00:45 Last Infusion: 08/27/18 09:37 Dose: Infused Documented by: Famotidine 20 mg/ Syringe 5 mls @ 2.5 mls/min IV Q12H PRN PRN Reason: Heartburn Stop: 09/28/18 12:24 Last Admin: 08/29/18 14:32 Dose: 2.5 mls/min Documented by: Diltiazem HCl 125 mg/ Dextrose 125 mls @ 5 mls/hr IV .Q24H [facility]; Protocol Stop: 09/28/18 13:59 Last Admin: 08/29/18 14:32 Dose: Not Given Documented by: Lactated Ringer's (Lr) 1,000 mls @ 100 mls/hr IV .Q10H [facility] Stop: 08/30/18 12:14 Last Admin: 08/29/18 17:06 Dose: 100 mls/hr Documented by: Morphine Sulfate (Morphine Sulfate) 3 mg IV Q3H PRN PRN Reason: Pain Stop: 09/09/18 14:56 Last Admin: 08/28/18 05:52 Dose: 3 mg Documented by: Ondansetron HCl (Zofran) 4 mg IV Q6H PRN PRN Reason: Nausea Stop: 09/25/18 14:56 Last Admin: 08/28/18 10:34 Dose: 4 mg Documented by: Oxycodone/Acetaminophen (Percocet 5mg/325mg) 1 tab PO Q4H PRN PRN Reason: Pain Stop: 09/10/18 13:42 Potassium Chloride (Klor-Con M10) 10 meq PO BID [facility] Stop: 09/28/18 20:59 Venlafaxine HCl (Effexor Extended Release) 75 mg PO DAILY [facility] Stop: 09/27/18 08:59 Last Admin: 08/29/18 07:44 Dose: 75 mg Documented by: Venlafaxine HCl (Effexor Extended Release) 150 mg PO DAILY [facility] Stop: 09/27/18 08:59 Last Admin: 08/29/18 07:44 Dose: 150 mg Documented by:
[2018-08-29] MEDS ORDERED: SODIUM CHLORIDE 0.9% 1000ML 1,000 ML IV ONE (13:47)
[2018-08-29] MEDS ORDERED: LORazepam 0.5 MG TAB PO STA (13:49)
[2018-08-29 13:53] LABS: Eosinophils # (auto) 0.01 K/uL (0-0.5); Eosinophils % (auto) 0.2 %; Hematocrit (blood only) 34.7 % (37-47); Hemoglobin 11.6 g/dL (12.0-16.0); Immature Granulocytes # (auto) 0.02 K/uL (0.00-0.02); Immature Granulocytes % (auto) 0.4 %; Lymphocytes # (auto) 1.63 K/uL (1.2-3.4); Lymphocytes % (auto) 32.5 %; Mean Corpuscular Volume 87.8 fL (80-100); Mean Platelet Volume 8.6 fL (7.4-10.4); Monocytes # (auto) 0.28 K/uL (0.11-0.59); Monocytes % (auto) 5.6 %; Neutrophils # (auto) 3.07 K/uL (1.4-6.5); Neutrophils % (auto) 61.3 %; Platelet Count 166 K/uL (130-400); RDW Coefficient of Variation 12.3 % (11.5-14.5); RDW Standard Deviation 39.7 fL (36.4-46.3); Red Blood Count 3.95 M/uL (4.2-5.4); White Blood Count 5.01 K/uL (4.8-10.8)
[2018-08-29] MEDS ORDERED: dilTIAZem HCl 5 MG/ML 5 ML VIAL IV STA (13:53)
[2018-08-29 13:58] LABS: Mean Corpuscular Hgb Conc 33.4 g/dL (32-36)
[2018-08-29] MEDS ORDERED: LORazepam 1 MG TAB ONE (13:58)
[2018-08-29] MEDS ORDERED: dilTIAZem HCl 125 MG in DEXTROSE 5% 100 ML IV SCH (14:00)
--- NOTE | 2018-08-29 14:02 | XRay Report ---
SINGLE VIEW CHEST CLINICAL HISTORY: Atrial flutter. FINDINGS: An AP, portable, upright chest radiograph is compared to study dated 08/26/2018 and correlat ed with chest CT dated 04/29/2014. The examination is degraded by portable technique and patient rotat ion. The cardiomediastinal silhouette is unremarkable. There is bibasilar atelectasis. No airspace consolidation or large pleural effusion is identified. No pneumothorax is seen. The bony thorax is gr ossly intact. IMPRESSION: No acute cardiopulmonary abnormality. Electronically signed by: John Dyer M.D. 08/29/2018 2:01 PM
--- NOTE | 2018-08-29 14:14 | Surgery Progress Note ---
Date of Service I got a call, pt developed A- flutter, pt was moved to PCU, now pt is on cardizem iv drip, pt said she feels better, pt denies abdominal pain, no nausea, no vomiting, no dizziness now, pt's at bedside, August 29, 2018 Assessment & Plan (1) Gallstone pancreatitis: POD # 2 s/p laparoscopic cholecystectomy - vitals stable, afebrile - post op pain improving, chest pain resolved - + nausea after eating, no vomiting - ambulating hallway - LFTS (yesterday, not checked today) improved - t. bili and alk phos wnl Plan: Okay for discharge from surgical standpoint advance diet as tolerated encouraged ambulating in hallway to release gas and help with pain control discharge instructions reviewed f/u surgical office in 1-[address] Navarro has seen and examined pt, agrees with above 08/29/2018 2:15pm S/P lap troy, POD 2 pt developed A- flutter, now pt is in PCU, HR 100, regular rate, pt denies any abdominal pain, normal WBC, CMP pending, lactic acid 2.3, plan, order stat U/S study for biliary, liver, reviewed pathology will F/U Subjective She was doing well this morning and tolerating a clear liquid diet for breakfast. She reports that her pain is improved in her surgical site. She was found to be tachycardic with a heart rate in the 160s. EKG revealed atrial flutter with variable block. She was reporting chest pressure but denied any difficulty breathing. She reported dizziness. She otherwise was feeling well. Lopressor 5mg IV was pushed at bedside with HR response to low 100s and then went right back to around 145-150bpm. She was transferred to PCU and prior to Diltiazem administration she converted to sinus rhythm. She went back into atrial flutter and got up to use the bathroom. When she returned to bed she converted back to sinus rhythm again. Dr. Navarro was notified by me of the status change. Labs and CXR pending. Cardiology was consulted. Ativan PO ordered to help with pain and anxiety. Physical Exam Constitutional: WD/WN, vitals as above ENMT: external ear and nose normal, oropharynx normal Neck: trachea midline, no thyromegaly Respiratory: normal respiratory effort, lungs clear to auscultation Cardiovascular: RRR, no murmur, no edema Rate/Rhythm: regular rate, regular rhythm and + tachycardic now the HR is 100, Chest (Breasts): Additional Comments: bilateral lung sound clear Gastrointestinal (Abdomen): Percussion/Palpation: abdomen soft no tenderness, no distend, all incisions intact, no drainage, no redness, BS + Musculoskeletal: no edema on bilt legs Neurologic: awake Psychiatric: Orientation: alert and oriented x 3 Results & Data Vital Signs (Past 12 Hours) Vital Signs Temp Pulse Pulse Pulse Pulse Resp BP 08/29/18 13:25 136 H 08/29/18 13:02 141 H 126/85 08/29/18 12:58 120 H 20 08/29/18 12:50 36.8 C 169 H 22 08/29/18 11:17 36.9 C 78 18 08/29/18 08:00 93 H 08/29/18 07:56 36.8 C 78 18 08/29/18 04:30 79 08/29/18 04:13 36.8 C 66 18 BP BP Pulse Ox 08/29/18 13:25 121/88 96 08/29/18 13:02 08/29/18 12:58 116/73 97 08/29/18 12:50 142/96 H 98 08/29/18 11:17 112/75 97 08/29/18 08:00 08/29/18 07:56 118/77 92 08/29/18 04:30 08/29/18 04:13 104/67 96 Laboratory Results Abnormal lab results 08/29/18 08/29/18 08/29/18 Range/Units 07:55 07:55 13:37 WBC 4.64 L (4.8-10.8) K/uL RBC 3.70 L 3.95 L (4.2-5.4) M/uL Hgb 10.8 L 11.6 L (12.0-16.0) g/dL Hct 32.7 L 34.7 L (37-47) % BUN 5 L (7-18) mg/dl BUN/Creatinine Ratio 6.7 L (10-20) Diagnostic Findings SINGLE VIEW CHEST CLINICAL HISTORY: Atrial flutter. FINDINGS: An AP, portable, upright chest radiograph is compared to study dated 08/26/2018 and correlated with chest CT dated 04/29/2014. The examination is degraded by portable technique and patient rotation. The cardiomediastinal silhouette is unremarkable. There is bibasilar atelectasis. No airspace consolidation or large pleural effusion is identified. No pneumothorax is seen. The bony thorax is grossly intact. IMPRESSION: No acute cardiopulmonary abnormality.
[2018-08-29 14:25] LABS: Anion Gap 2 (3-11); BUN Creatinine Ratio 6.7 (10-20); Blood Urea Nitrogen 6 mg/dl (7-18); Carbon Dioxide 32 mmol/L (21-32); Chloride 107 mmol/L (98-107); Creatinine Clr Calc Pharmacy 94.4 ml/min; Est GFR (African American) 91.4; Est GFR (Non-African American) 78.8; Potassium 3.4 mmol/L (3.5-5.1); Sodium 141 mmol/L (136-145)
[2018-08-29 14:26] LABS: Alanine Aminotransferase 122 U/L (12-78); Albumin Level 3.4 gm/dl (3.4-5.0); Aspartate Aminotransferase 28 U/L (15-37); Bilirubin,Total 0.3 mg/dl (0.2-1); Calcium 8.9 mg/dl (8.5-10.1); Globulin 3.4 gm/dl (2.5-4.0); Glucose 89 mg/dl (70-99); Total Protein 6.8 gm/dl (6.4-8.2)
[2018-08-29 14:27] LABS: Alkaline Phosphatase 113 U/L (45-117)
[2018-08-29] MEDS ORDERED: POTASSIUM CHLORIDE 10 MEQ TABCR PO STA (14:33)
[2018-08-29 14:53] LABS: Troponin I < 0.015 ng/ml (0-0.045)
--- NOTE | 2018-08-29 16:40 | Surgery Progress Note ---
Date of Service pt is doing better, HR 82 sinus, regular, pt denies abdominal pain, no nausea, no vomiting,no chest pain, no SOB, labs, K 3.3, lactic acid 2.3. August 29, 2018 Assessment & Plan (1) Gallstone pancreatitis: POD # 2 s/p laparoscopic cholecystectomy - vitals stable, afebrile - post op pain improving, chest pain resolved - + nausea after eating, no vomiting - ambulating hallway - LFTS (yesterday, not checked today) improved - t. bili and alk phos wnl Plan: Okay for discharge from surgical standpoint advance diet as tolerated encouraged ambulating in hallway to release gas and help with pain control discharge instructions reviewed f/u surgical office in 1-[address] 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 She reports that her pain is improved in her surgical site. She was found to be tachycardic with a heart rate in the 160s. EKG revealed atrial flutter with variable block. She was reporting chest pressure but denied any difficulty breathing. She reported dizziness. She otherwise was feeling well. Lopressor 5mg IV was pushed at bedside with HR response to low 100s and then went right back to around 145-150bpm. She was transferred to PCU and prior to Diltiazem administration she converted to sinus rhythm. She went back into atrial flutter and got up to use the bathroom. When she returned to bed she converted back to sinus rhythm again. Dr. Navarro was notified by me of the status change. Labs and CXR pending. Cardiology was consulted. Ativan PO ordered to help with pain and anxiety. Physical Exam Constitutional: WD/WN, vitals as above well developed and well nourished Neck: trachea midline, no thyromegaly Respiratory: normal respiratory effort, lungs clear to auscultation normal respiratory effort Cardiovascular: RRR, no murmur, no edema Rate/Rhythm: regular rate and regular rhythm Heart Sounds: normal S1 and normal S2 Gastrointestinal (Abdomen): Percussion/Palpation: abdomen soft NT, ND, Musculoskeletal: no edema or tenderness on bilt legs, Neurologic: awake Psychiatric: Orientation: alert and oriented x 3 Results & Data Vital Signs (Past 12 Hours) Vital Signs Temp Pulse Pulse Pulse Pulse Resp BP 08/29/18 15:41 36.8 C 76 18 08/29/18 13:25 136 H 08/29/18 13:02 141 H 126/85 08/29/18 12:58 120 H 20 08/29/18 12:50 36.8 C 169 H 22 08/29/18 11:17 36.9 C 78 18 08/29/18 08:00 93 H 08/29/18 07:56 36.8 C 78 18 BP BP Pulse Ox 08/29/18 15:41 132/76 96 08/29/18 13:25 121/88 96 08/29/18 13:02 08/29/18 12:58 116/73 97 08/29/18 12:50 142/96 H 98 08/29/18 11:17 112/75 97 08/29/18 08:00 08/29/18 07:56 118/77 92 Laboratory Results Abnormal lab results 08/29/18 08/29/18 08/29/18 Range/Units 07:55 07:55 13:37 WBC 4.64 L (4.8-10.8) K/uL RBC 3.70 L 3.95 L (4.2-5.4) M/uL Hgb 10.8 L 11.6 L (12.0-16.0) g/dL Hct 32.7 L 34.7 L (37-47) % Potassium (3.5-5.1) mmol/L Anion Gap (3-11) BUN 5 L (7-18) mg/dl BUN/Creatinine Ratio 6.7 L (10-20) Lactate (0.4-2.0) mmol/L ALT (12-78) U/L 08/29/18 08/29/18 Range/Units 13:38 13:38 WBC (4.8-10.8) K/uL RBC (4.2-5.4) M/uL Hgb (12.0-16.0) g/dL Hct (37-47) % Potassium 3.4 L (3.5-5.1) mmol/L Anion Gap 2 L (3-11) BUN 6 L (7-18) mg/dl BUN/Creatinine Ratio 6.7 L (10-20) Lactate 2.3 H* (0.4-2.0) mmol/L ALT 122 H (12-78) U/L
[2018-08-29] MEDS ORDERED: POTASSIUM CHLORIDE 10 MEQ TABCR PO ONE (16:45)
--- NOTE | 2018-08-29 17:13 | Ultrasound Report ---
ULTRASOUND RIGHT UPPER QUADRANT ABDOMEN CLINICAL HISTORY: Abnormal laboratory studies. Recent cholecystectomy. COMPARISON STUDY: Abdominal ultrasound dated 08/26/2018. TECHNIQUE: Real-time, grayscale, and color flow sonography of the right upper quadrant of the abdomen was performed. Images are reviewed in the transverse and longitudinal planes. FINDINGS: Liver: The liver is normal in size and echotexture. There is no intrahepatic biliary ductal dilatatio n. The main portal vein is patent. Gallbladder: The gallbladder is surgically absent. The common bile duct measures up to 0.5 cm in diam eter. Pancreas: Not visualized due to overlying bowel gas. Right kidney: Survey images of the right kidney demonstrate normal size and echotexture. There is no hydronephrosis. Ascites: None. IMPRESSION: No acute sonographic abnormality is identified in the right upper quadrant noting status post cholecystectomy. Electronically signed by: John Dyer M.D. 08/29/2018 5:11 PM
--- NOTE | 2018-08-29 19:49 | Cardiology Consultation ---
Date of Consultation August 29, 2018 Assessment & Plan (1) Atrial fib/flutter, transient: (2) Gallstone pancreatitis: Laboratory studies performed today at 1330 included an elevated lactate level of 2.3, this subsequently improved on repeat at 1858. Patient is received potassium supplementation for a potassium of 3.4. I have requested a repeat CMP, lipase, magnesium level for tomorrow. We will proceed with starting her on metoprolol tartrate 25 mg twice daily. A 7-day Zio cardial monitor can be considered as an outpatient after she recovers from her acute surgical event in order to assess whether or not this is an ongoing problem. Her [id number] score is 1 for female gender,predicting a low risk of cardio embolic stroke, and therefore anticoagulation is not indicated especially I think should be avoided given her recent postoperative state. 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 The patient presented initially on 08/26/2018 with epigastric and right upper quadrant abdominal pain. She had since been diagnosed with gallstone pancreatitis and underwent laparoscopic cholecystectomy 2 days ago on 08/27/2018. She is recovering on the med/surgery unit today when she is noted to have tachycardia. An EKG performed 08/29/2018 at 12:55 PM revealed what I believed to be atrial fibrillation with rapid ventricular response 161 bpm with noted anterior and lateral ST depression. The patient received 5 mg of IV metoprolol was transferred to the telemetry floor. She converted to sinus rhythm at 1346 prior to the administration of IV diltiazem. She has felt improved in the meantime. She had chest discomfort earlier this hospital stay prior to the tachycardia episode and echocardiogram performed yesterday 08/29/2018 was within normal limits. She did not have any chest discomfort with the tachycardia but did have sensation of feeling her heart race and she notes that she has had brief episodes of a similar feeling at home in the past. Allergies Allergy/AdvReac Type Severity Reaction Status Date / Time acetaminophen AdvReac Mild NAUSEA/VOMT Verified 08/29/18 12:22 ING Home Medications Home Medications Medication Instructions Recorded Confirmed Type bupropion HCl 150 mg PO BID 08/26/18 08/26/18 History venlafaxine 75 mg PO DAILY 08/26/18 08/26/18 History venlafaxine 150 mg PO DAILY 08/26/18 08/26/18 History Patient History Medical History Depression (Chronic) Obesity Pancreatitis, acute resolved over night Surgical History H/O: hysterectomy (Chronic) Family History Other Cancer Depression Social History Preferred Language: Macedonian Communication Ability: Effective Beliefs That Will Affect Care: None Current Living Situation: Spouse and Family Other Information That Helps Us Care for You: No Feels Safe at Home: Yes Safety Concerns: Feels Safe At This Time Smoking Status: Never smoker Hx Alcohol Use: Yes Alcohol Intake Frequency Comment: 3 drinks 2 times a month Hx Substance Use: No Review of Systems Review of Systems: All systems reviewed & are unremarkable except as noted in HPI & below Physical Exam Physical Exam: Temp Pulse Resp BP Pulse Ox 37.2 C 88 18 113/78 95 08/29/18 19:08 08/29/18 19:08 08/29/18 19:08 08/29/18 19:08 08/29/18 19:08 Constitutional: WD/WN, vitals as above Respiratory: normal respiratory effort, lungs clear to auscultation Cardiovascular: RRR, no murmur, no edema Neurologic: PERRL, EOMI, accommodation nl, no face palsy, no dysarthria moves all extremities; no focal motor deficits Results & Data Vital Signs (Past 12 Hours) Vital Signs Temp Pulse Pulse Pulse Pulse Resp BP 08/29/18 19:08 37.2 C 88 18 08/29/18 15:41 36.8 C 76 18 08/29/18 13:25 136 H 08/29/18 13:02 141 H 126/85 08/29/18 12:58 120 H 20 08/29/18 12:50 36.8 C 169 H 22 08/29/18 11:17 36.9 C 78 18 08/29/18 08:00 93 H 08/29/18 07:56 36.8 C 78 18 BP BP Pulse Ox 08/29/18 19:08 113/78 95 08/29/18 15:41 132/76 96 08/29/18 13:25 121/88 96 08/29/18 13:02 08/29/18 12:58 116/73 97 08/29/18 12:50 142/96 H 98 08/29/18 11:17 112/75 97 08/29/18 08:00 08/29/18 07:56 118/77 92
[2018-08-29] MEDS: POTASSIUM CHLORIDE 10 MEQ TABCR PO SCH (20:47)
[2018-08-29] MEDS: METOPROLOL TARTRATE 25 MG TAB PO SCH (21:17)
[2018-08-30] MEDS: LACTATED RINGER'S 1,000 ML IV SCH (02:58)
[2018-08-30 07:50] LABS: Albumin Level 3.4 gm/dl (3.4-5.0); BUN Creatinine Ratio 7.5 (10-20); Calcium 9.1 mg/dl (8.5-10.1); Creatinine Clr Calc Pharmacy 95.5 ml/min; Est GFR (African American) 92.6; Est GFR (Non-African American) 79.9; Potassium 3.9 mmol/L (3.5-5.1)
[2018-08-30 07:53] LABS: Bilirubin,Total 0.4 mg/dl (0.2-1); Globulin 3.3 gm/dl (2.5-4.0); Total Protein 6.7 gm/dl (6.4-8.2)
[2018-08-30] MEDS: VENLAFAXINE HCL XR 75 MG CAPXR PO SCH (09:05)
[2018-08-30] MEDS: VENLAFAXINE HCL XR 150 MG CAPXR PO SCH (09:05)
[2018-08-30] MEDS: METOPROLOL TARTRATE 25 MG TAB PO SCH (09:06)
[2018-08-30] MEDS: BuPROPion SR 150 MG TABCR PO SCH (09:06)
[2018-08-30] MEDS: POTASSIUM CHLORIDE 10 MEQ TABCR PO SCH (09:11)
[2018-08-30] MEDS ORDERED: DOCUSATE SODIUM 100 MG CAP PO SCH (09:15)
--- NOTE | 2018-08-30 10:59 | Surgery Progress Note ---
Date of Service August 30, 2018 Assessment & Plan (1) Gallstone pancreatitis: POD # 3 s/p laparoscopic cholecystectomy - vitals stable, afebrile - post op pain improving, chest pain resolved, heart rate regular last evening into this morning - ambulating hallway - t. bili, lfts, alk phos wnl Postoperative new onset atrial flutter - resolved this morning Plan: Okay for discharge from surgical standpoint advance diet as tolerated discharge instructions reviewed f/u surgical office in 1-2 weeks Rx for Percocet prn pain Dr. Navarro has seen and examined pt, agrees with above Subjective feeling much better today no further chest pain or heart palpitations mild RUQ soreness, incisional pain no nausea or vomiting, tolerating diet passing flatus, no vomiting Physical Exam Constitutional: WD/WN, vitals as above no acute distress and not ill appearing Respiratory: normal respiratory effort; no respiratory distress Gastrointestinal (Abdomen): Inspection/Auscultation: abdomen normal to inspection; abdomen not distended Percussion/Palpation: + abdomen tender (at incision sites, specifically supraumbilical incision) and abdomen soft; no guarding and abdomen not rigid Skin: no rashes, warm and dry + incision (clean/dry/intact, supra umbilical incision without erythema but ecchymosis) Psychiatric: A+Ox3, euthymic affect Results & Data Vital Signs (Past 12 Hours) Vital Signs Temp Pulse Pulse Resp BP BP Pulse Ox 08/30/18 06:58 36.8 C 67 16 118/82 97 08/30/18 04:33 36.8 C 72 17 114/77 96 08/30/18 00:00 37.1 C 77 18 109/74 96 Laboratory Results 08/30/18 08/29/18 08/29/18 Range/Units 06:47 18:58 13:38 WBC (4.8-10.8) K/uL RBC (4.2-5.4) M/uL Hgb (12.0-16.0) g/dL Hct (37-47) % MCV (80-100) fL MCH (25-34) pg MCHC (32-36) g/dL RDW Std Deviation (36.4-46.3) fL RDW Coeff of Amarilys (11.5-14.5) % Plt Count (130-400) K/uL MPV (7.4-10.4) fL Immature Gran % (Auto) % Neut % (Auto) % Lymph % (Auto) % Sevier % (Auto) % Eos % (Auto) % Baso % (Auto) % Immature Gran # (Auto) (0.00-0.02) K/uL Neut # (Auto) (1.4-6.5) K/uL Lymph # (Auto) (1.2-3.4) K/uL Sevier # (Auto) (0.11-0.59) K/uL Eos # (Auto) (0-0.5) K/uL Baso # (Auto) (0-0.2) K/uL Sodium 141 (136-145) mmol/L Potassium 3.9 (3.5-5.1) mmol/L Chloride 109 H (98-107) mmol/L Carbon Dioxide 28 (21-32) mmol/L Anion Gap 4.0 (3-11) BUN 7 (7-18) mg/dl Creatinine 0.88 (0.6-1.2) mg/dl Est Cr Clr Drug Dosing 95.5 ml/min Est GFR ( Amer) 92.6 Est GFR (Non-Af Amer) 79.9 BUN/Creatinine Ratio 7.5 L (10-20) Glucose 85 (70-99) mg/dl Lactate 1.3 (0.4-2.0) mmol/L Calcium 9.1 (8.5-10.1) mg/dl Magnesium 2.0 (1.8-2.4) mg/dl Total Bilirubin 0.4 (0.2-1) mg/dl AST 20 (15-37) U/L ALT 100 H (12-78) U/L Alkaline Phosphatase 110 (45-117) U/L Troponin I Cancelled (0-0.045) ng/ml Total Protein 6.7 (6.4-8.2) gm/dl Albumin 3.4 (3.4-5.0) gm/dl Globulin 3.3 (2.5-4.0) gm/dl Albumin/Globulin Ratio 1.0 (0.9-2) Lipase 104 (73-393) U/L TSH (0.300-4.500) uIu/ml 07/18/19 07/18/19 07/18/19 Range/Units 13:38 13:38 13:37 WBC 5.01 (4.8-10.8) K/uL RBC 3.95 L (4.2-5.4) M/uL Hgb 11.6 L (12.0-16.0) g/dL Hct 34.7 L (37-47) % MCV 87.8 (80-100) fL MCH 29.4 (25-34) pg MCHC 33.4 (32-36) g/dL RDW Std Deviation 39.7 (36.4-46.3) fL RDW Coeff of Amarilys 12.3 (11.5-14.5) % Plt Count 166 (130-400) K/uL MPV 8.6 (7.4-10.4) fL Immature Gran % (Auto) 0.4 % Neut % (Auto) 61.3 % Lymph % (Auto) 32.5 % Sevier % (Auto) 5.6 % Eos % (Auto) 0.2 % Baso % (Auto) 0.0 % Immature Gran # (Auto) 0.02 (0.00-0.02) K/uL Neut # (Auto) 3.07 (1.4-6.5) K/uL Lymph # (Auto) 1.63 (1.2-3.4) K/uL Sevier # (Auto) 0.28 (0.11-0.59) K/uL Eos # (Auto) 0.01 (0-0.5) K/uL Baso # (Auto) 0.00 (0-0.2) K/uL Sodium 141 (136-145) mmol/L Potassium 3.4 L (3.5-5.1) mmol/L Chloride 107 (98-107) mmol/L Carbon Dioxide 32 (21-32) mmol/L Anion Gap 2 L (3-11) BUN 6 L (7-18) mg/dl Creatinine 0.89 (0.6-1.2) mg/dl Est Cr Clr Drug Dosing 94.4 ml/min Est GFR ( Amer) 91.4 Est GFR (Non-Af Amer) 78.8 BUN/Creatinine Ratio 6.7 L (10-20) Glucose 89 (70-99) mg/dl Lactate 2.3 H* (0.4-2.0) mmol/L Calcium 8.9 (8.5-10.1) mg/dl Magnesium 2.0 (1.8-2.4) mg/dl Total Bilirubin 0.3 (0.2-1) mg/dl AST 28 (15-37) U/L ALT 122 H (12-78) U/L Alkaline Phosphatase 113 (45-117) U/L Troponin I < 0.015 (0-0.045) ng/ml Total Protein 6.8 (6.4-8.2) gm/dl Albumin 3.4 (3.4-5.0) gm/dl Globulin 3.4 (2.5-4.0) gm/dl Albumin/Globulin Ratio 1.0 (0.9-2) Lipase (73-393) U/L TSH 1.140 (0.300-4.500) uIu/ml Diagnostic Findings ULTRASOUND RIGHT UPPER QUADRANT ABDOMEN CLINICAL HISTORY: Abnormal laboratory studies. Recent cholecystectomy. COMPARISON STUDY: Abdominal ultrasound dated 08/26/2018. TECHNIQUE: Real-time, grayscale, and color flow sonography of the right upper quadrant of the abdomen was performed. Images are reviewed in the transverse and longitudinal planes. FINDINGS: Liver: The liver is normal in size and echotexture. There is no intrahepatic biliary ductal dilatation. The main portal vein is patent. Gallbladder: The gallbladder is surgically absent. The common bile duct measures up to 0.5 cm in diameter. Pancreas: Not visualized due to overlying bowel gas. Right kidney: Survey images of the right kidney demonstrate normal size and echotexture. There is no hydronephrosis. Ascites: None. IMPRESSION: No acute sonographic abnormality is identified in the right upper quadrant noting status post cholecystectomy.
--- NOTE | 2018-08-30 11:35 | Cardiology Progress Note ---
Date of Service August 30, 2018 Assessment & Plan (1) Atrial fib/flutter, transient: (2) Gallstone pancreatitis: Continue metoprolol 25 mg twice daily. Recommend 7-day outpatient ZIO monitor and cardiology follow-up in 4 to 6 weeks. No further inpatient cardiology testing or intervention at this time. Will sign off. Please call with questions. Subjective Patient seen and examined at the bedside. No recurrent dysrhythmias on telemetry. Feeling well from a cardiovascular perspective. Tolerating low-dose metoprolol. is present at bedside. He offers no additional concerns/complaints at this time. Review of Systems Review of Systems: All systems reviewed & are unremarkable except as noted in HPI & below Physical Exam Physical Exam: General: NAD, AAO x3, well nourished. HEENT: Normocephalic. Atraumatic. Conjunctiva pink, no scleral icterus. Neck: No carotid bruits, the carotid upstrokes are brisk. No JVD. No HJR Heart: Regular normal S-1 and S-2 no S-3 or S-4 gallop. No murmurs or rub appreciated. PMI is not displaced. No RV heave. Lungs: Clear bilateral without rales , rhonchi, or wheeze. Abdomen: Normal bowel sounds. Soft. Nontender. No masses or organomegaly. No abdominal bruits. Extremities: No clubbing, cyanosis, or edema. Pulses: radial=2/4, Dorsalis pedis =2/4, posterior tibial=2/4. Neuro: Cranial nerves grossly intact. No focal motor deficit. Results & Data Vital Signs (Past 12 Hours) Vital Signs Temp Pulse Pulse Resp BP BP Pulse Ox 08/30/18 06:58 36.8 C 67 16 118/82 97 08/30/18 04:33 36.8 C 72 17 114/77 96 08/30/18 00:00 37.1 C 77 18 109/74 96
--- NOTE | 2018-08-30 12:43 | Discharge Summary ---
Date of Service August 30, 2018 Admission HPI Per Admitting Provider Pt is 43 y/o F with PMH depression, endometriosis s/p ISIDRO-BSO presented to ER with c/o RUQ pain x 1 day. Patient states last night he ate chicken and steak kabob and later in the evening developed epigastric and right upper quadrant pain described as achy with intermittent sharp episodes. Reports one episode of mid upper back pain last night which resolved. Complains of nausea and has had 4-5 episodes of watery diarrhea since last night. Patient states he tried Zantac last night without any relief. She reports was having sweats and feeling dizzy last evening. Did not take her temperature. Pt reports approx 1.5 week ago had similar RUQ pain after eating dinner which self resolved. Denies LYNN, syncope, vision changes, neck pain, SOB, orthopnea, palpitations, cough, sore throat, choking, otalgia, rhinorrhea, paresthesias, weakness, extremity weakness, extremity edema, rashes, urinary symptoms. Admission Exam Per Admitting Provider General: mild distress secondary to abdominal discomfort, feels better sitting up, non-toxic appearance, obese Head: normocephalic, atraumatic Eyes: PERRL, EOM's intact, conjunctiva non-injected, anicteric ENT: normal inspection external ears, nose, mucous membranes mildly dry Neck: supple, trachea midline Lungs: clear, no respiratory distress, no wheezing/rhonchi/rales CV: RRR, no murmur, no JVD, no pretibial edema Abd: normal BS, soft, protuberant, +tenderness to palpation epigastric and RUQ with guarding Ext: no cyanosis, no calf tenderness Neuro: A&O x 3, no focal deficits noted, normal affect Skin: warm, dry Principal Diagnosis Acute cholecystitis with gallstones New-onset atrial flutter with rapid ventricular response-resolved Discharge Data Allergies Allergy/AdvReac Type Severity Reaction Status Date / Time acetaminophen AdvReac Mild NAUSEA/VOMT Verified 08/29/18 12:22 ING Consultations 08/26/18 12:06 ED Decision to Admit Stat 08/26/18 14:57 Consult Gastroenterology Routine Consult General Surgery Routine 08/29/18 13:13 Consult Cardiology Routine Procedures Performed Operation Date: 08/27/18 09:20 Actual Procedures p Laparoscopic Cholecystectomy(Not Applicable) - Lorna Navarro MD Ordered Studies 08/26/18 10:58 US gallbladder Stat 08/26/18 12:28 MR MRCP Routine 08/29/18 14:04 US abdomen limited Stat Hospital Course (1) Atrial flutter with rapid ventricular response: (2) Gallstone pancreatitis: She was admitted to the Hospitalist service. ALT was 439 and AST 65, lipase was 11,214. She underwent an MRCP for suspected gallstone pancreatitis which revealed evidence of possible cholecystitis. In addition to aggressive fluid resuscitation she was started on Unasyn. Lipase trended down and she continued to improve clinically. She underwent a laparoscopic cholecystectomy on 08/27/18 without issue. An intraoperative cholangiogram was not performed as the MRCP did not reveal evidence of choledocholithiasis. She was feeling well but developed rapid atrial flutter on 08/29. She was stabilized with Lopressor 5mg IV and transferred to telemetry, however, before any diltiazem could be given she converted to sinus rhythm and remained in sinus rhythm throughout the rest of her hospitalization. Cardiology was consulted and she was discharged on a small dose of metoprolol with an outpatient cardiology follow-up in 4-6 weeks. A Zio patch was recommended to ensure the atrial flutter did not return. The patient was notably symptomatic while in this rhythm, however, and was instructed to seek immediate medical attention if she felt the symptoms come on again. She and her verbalized understanding with intent to comply. At time of discharge a [id number] examination was performed revealing a hem odynamically stable and afebrile woman in no acute distress. She was mentating and ambulating at baseline and was tolerating PO reliably. She had post- operative incisions with an expected amount of tenderness to palpation of her abdomen in this area. Abdomen was not distended and was soft. Bowel sounds were present. Heart exam revealed presence of S1/2 with a regular rate and rhythm and no murmurs were auscultated. She was euvolemic without evidence of edema. Lungs were clear to auscultation. She was instructed on post-operative activity restrictions and how to clean her wounds by Surgery who saw her. She was sent home in stable condition with close primary care follow-up recommended. At time of discharge AST was 20, ALT was 100 and WBC was normal. Total Time Total Time Spent Total Time Spent (In Minutes): 60 Total Time Includes: Examination of the Patient, Discharge Planning, Medication Reconciliation, Communication With Other Providers and Other (coordinated outpatient follow-up) Discharge Plan Discharge Items Patient Disposition: Home - Self-Care Reason For Visit: PANCREATITIS Discharge Diagnosis: Acute cholecystitis with gallstones New-onset atrial flutter with rapid ventricular response-resolved Condition: Good Discharge Goals: Improve disease control Activity: Per 'Additional Instructions' section Non-emergency contact: Primary Care Provider and Surgeon Call non-emergency contact if: you have any medication questions, your symptoms worsen, your pain is not controlled, your pain is worsening, your pain is unusual for you, your pain is concerning for you and you have a fever Follow-up/Referrals: John Tovar MD [Primary Care Provider] - Diet: Regular Addtl Provider Instructions: Surgical discharge instructions: Activity: -No heavy lifting over 20 pounds for 4 weeks - No strenuous activity until cleared by surgeon - No driving while taking narcotic pain medication or until you are pain free Showering/bathing - You may shower, let water run over incisions and pat day - No submerging incisions underwater for 2 weeks (no bathing, swimming, or hot tubs) - Leave steri strips on incisions for 7 days and then remove. Medications: -Resume home medications - May take extra strength Tylenol or Ibuprofen as needed for mild pain - 600 mg of Ibuprofen every 6 hours as needed - 650 mg of Tylenol every 6 hours as needed - May want to take OTC stool softener(Colace) daily to prevent constipation and straining. Drink plenty of fluids. Follow-up: - Follow up in surgical office in 1-2 weeks, please call office at to make an appointment. ADDITIONAL PROVIDER INSTRUCTIONS FROM HOSPITALIST PHYSICIAN: Please take all medications as instructed on discharge list below. NEW MEDICATION: Metoprolol for heart rate control You will need to make a follow-up appointment with [facility] Cardiology at the [facility] [place] in 4-6 weeks time. This will be to ensure your heart arrythmia is not a persistent issue. You will need to undergo an event monitor which you will wear continuously for 7 days. This is called a ZIO patch and can be ordered by your primary care physician during your hospital follow-up appointment below. 09/04/2018 1:20 PM John Tovar MD [facility] It was a pleasure taking care of you! Please call if you have any questions or problems. You can reach a [facility] hospitalist on duty at [facility] 24 hours a day by calling [phone]. Take care of yourself. Miriam Ramos, [facility] Prescriptions: New metoprolol tartrate 25 mg Tablet 25 mg PO BID Qty: 60 RF: 1 Continued bupropion HCl 150 mg tablet sustained-release 12 hr 150 mg PO BID RF: 0 venlafaxine 75 mg capsule,extended release 24hr 75 mg PO DAILY RF: 0 venlafaxine 150 mg capsule,extended release 24hr 150 mg PO DAILY RF: 0 Stand-Alone Forms: Call Back Authorization, My [facility], Work/School Release (Inpt) Discharge Orders: Discharge Order (Routine); Ordered 08/30/18 Ordered By: Miriam Ramos Admission Data Admit Date/Time: 08/26/18 13:44 Attending Provider: Miriam Ramos Admit Provider: Baljit Byrd Primary Care Provider: John Tovar Other Providers: Baljit Byrd ; Luis Leavitt ; Lorna Navarro ; Ronnie Prajapati Service: Telemetry Other Interventions: Discharge Summary Assessment (RN) Last Done: 08/30/18 12:59 Pending Studies at Discharge: Yes (Gallbladder pathology, will be reviewed at follow-up visit) DC Date/Time DO NOT enter until pt leaves facility: 08/30/18 13:58
== END 2018-08-30 13:58 | disposition home or self-care (01) | DRG 417 ==
LOC: ED 09:38 → SUATTDRO 13:44 → 2N 13:44 → 2S 08-29 13:51
DX: K21.9 Gastro-esophageal reflux disease without esophagitis; I48.92 Unspecified atrial flutter; K85.10 Biliary acute pancreatitis without necrosis or infection; E86.0 Dehydration; K80.00 Calculus of gallbladder with acute cholecystitis without obstruction; Z90.710 Acquired absence of both cervix and uterus; F41.9 Anxiety disorder, unspecified; F32.9 Major depressive disorder, single episode, unspecified

== ENCOUNTER 2022-06-14 23:58 | Observation (INO) ==
[2022-06-15] MEDS ORDERED: SODIUM CHLORIDE 0.9% 1000ML 1,000 ML IV ONE (00:18)
[2022-06-15] MEDS ORDERED: METOPROLOL TARTRATE 1 MG/ML VIAL IV ONE (00:20)
[2022-06-15] MEDS ORDERED: FLECAINIDE ACETATE 100 MG TABLET PO STA (00:23)
[2022-06-15 00:35] LABS: Basophils # (auto) 0.02 K/uL (0-0.2); Basophils % (auto) 0.2 %; Hematocrit (blood only) 38.5 % (37.0-47.0); Hemoglobin 13.4 g/dl (12.0-16.0); Immature Granulocytes # (auto) 0.02 K/uL (0.01-0.20); Immature Granulocytes % (auto) 0.2 %; Lymphocytes # (auto) 4.04 K/uL (1.2-3.4); Lymphocytes % (auto) 42.2 %; Mean Corpuscular Hemoglobin 29.8 pg (25.0-34.0); Mean Corpuscular Hgb Conc 34.8 g/dL (32.0-36.0); Mean Corpuscular Volume 85.7 fL (80.0-100.0); Mean Platelet Volume 8.6 fL (9.4-12.4); Monocytes # (auto) 0.54 K/uL (0.11-0.59); Monocytes % (auto) 5.6 %; Neutrophils # (auto) 4.85 K/uL (1.40-6.50); Neutrophils % (auto) 50.8 %; Platelet Count 275 K/uL (130-400); RDW Coefficient of Variation 12.1 % (11.5-14.5); RDW Standard Deviation 37.9 fL (36.4-46.3); Red Blood Count 4.49 M/uL (4.20-5.40); White Blood Count 9.57 K/ul (4.8-10.8)
[2022-06-15 00:52] LABS: Albumin Globulin Ratio 1.5 (0.9-2); BUN Creatinine Ratio 16.5 (10-20); Bilirubin,Total 0.3 mg/dl (0.2-1.0); Calcium 9.4 mg/dl (8.6-10.3); Est GFR (African American) 86.5 ml/min; Est GFR (Non-African American) 74.6 ml/min; Globulin 2.7 gm/dl (2.5-4.0); Magnesium 1.7 mg/dl (1.7-2.4); Potassium 3.5 mmol/L (3.5-5.1); Total Protein 6.7 gm/dl (6.0-8.3)
[2022-06-15] MEDS ORDERED: METOPROLOL TARTRATE 1 MG/ML VIAL IV STA ×2 (01:00→01:13)
[2022-06-15 01:04] LABS: Thyroid Stimulating Hormone 5.141 uIu/ml (0.300-4.500)
[2022-06-15 01:39] LABS: T4 Free Thyroxine 1.14 ng/dl (0.61-1.60)
[2022-06-15] MEDS: MAGNESIUM SULFATE / D5W 1 GM/100 ML BAG IV SCH ×2 (01:44→02:25)
[2022-06-15 02:05] LABS: Phosphorus 2.8 mg/dl (2.5-4.9)
[2022-06-15] MEDS ORDERED: STAT IV Infusion **Titration per Protocol STA (02:08)
[2022-06-15] MEDS ORDERED: dilTIAZem HCL 125 MG in DEXTROSE 5% 100 ML IV SCH (02:15)
[2022-06-15] MEDS ORDERED: POTASSIUM CHLORIDE PWD 20 MEQ PACK PO STA (02:47)
[2022-06-15 03:36] LABS: Troponin I High Sensitivity 7.8 pg/ml (0-14)
[2022-06-15] MEDS ORDERED: METOPROLOL TARTRATE 1 MG/ML VIAL IV, SCH (04:00)
[2022-06-15] MEDS ORDERED: NITROGLYCERIN SL 0.4 MG/TAB TAB SL STA (05:03)
--- NOTE | 2022-06-15 05:04 | History & Physical Report ---
Date of Service June 15, 2022 Assessment & Plan (1) Chest pain: Plan: Relieved by nitroglycerin ro ACS PAF status post recent ablation on Eliquis recurrent bouts of uncontrolled A-fib/flutter/SVT last 48 hours Patient currently NSR status post flecainide administration at the ER. GERD, stable on Rx mood disorder, stable past vape abuse OBS PCU Aspirin for CAD prevention until ACS ruled out Follow troponin, IV heparin if with troponin elevation TTE, Cardiology consult Re: Chest pain relieved by nitroglycerin, recurrent A- fib N.p.o. until patient seen by Cardiology in anticipation of ischemic work-up. Hold Eliquis until patient seen by Cardiology DVT prophylaxis. continue Eliquis if okay with cardiology Full code Text document was generated using Realie voice recognition software. It may contain grammatical or spelling errors. Kindly contact undersigned for clarification of any documentation item in question. History of Present Illness Chief Complaint: Chest pain, feeling faint, palpitations Primary Care Provider: John Tovar MD History obtained from patient and records. Medical history significant for PAF status post recent ablation on Eliquis, migraine, GERD, mood disorder, past vape abuse. Last confinement August 2018 for gallstone pancreatitis status post [place] cystectomy. New onset onset atrial flutter confinement status post spontaneous conversion to NSR. Patient discharged on metoprolol. Eliquis eventually started outpatient due to recurrent episodes of A-fib. [place] [facility] [place] uncontrolled A-fib. Patient well until 2 days ago when she experienced chest pain, shortness of breath, and palpitations, heart rate up to 190s. Compliant with medications. No unusual stress. Patient directed to ER by weekday babysitter. Patient noted to be in rapid A-fib/flutter at the ER. EPS recommended DC cardioversion. Upon arrival at the [facility], patient converted to NSR. Patient instructed to increase Toprol 25 mg nightly to twice daily dosing. Patient given prescription for Flecainide to be taken 1 time in a 24-hour at onset of tachycardia. Patient roused from sleep last night with substernal pain going to the neck/jaw with shortness of breath and palpitations. Feels like she is going to faint. No initial headache symptoms. Patient noted to be in rapid A-fib upon arrival at the ER. IV metoprolol, flecainide administered at the ER followed by IV Cardizem infusion. Subsequent conversion to NSR. Patient still complaining of chest pain going to the jaw despite A-fib termination. Chest pain relieved by nitroglycerin administration at the ER. 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 Allergies Allergy/AdvReac Type Severity Reaction Status Date / Time acetaminophen AdvReac Mild Nausea/Vomi Verified 06/15/22 00:58 ting Home Medications Medication Instructions Recorded Confirmed Type omeprazole 20 mg capsule,delayed 20 mg PO QAM 03/09/21 06/15/22 History release apixaban 5 mg tablet 5 mg PO BID 06/13/22 06/15/22 History baclofen 10 mg tablet 10 mg PO BID 06/13/22 06/15/22 History dicyclomine 10 mg capsule 10 mg PO BID 06/13/22 06/15/22 History erenumab-aooe 70 mg/mL 70 mg subcut MONTHLY 06/13/22 06/15/22 History subcutaneous auto-injector (Aimovig Autoinjector) famotidine 20 mg tablet 20 mg PO BID 06/13/22 06/15/22 History flecainide 100 mg tablet 200 mg PO ONCE PRN tachycardia; HR 06/13/22 06/15/22 Rx >150bpm #30 tabs metoprolol succinate 25 mg 25 mg PO BID #60 tabs 06/13/22 06/15/22 Rx tablet,extended release 24 hr ondansetron 4 mg disintegrating 4 mg PO Q8H PRN Nausea 06/13/22 06/15/22 History tablet sucralfate 1 gram tablet 1 g PO TID 06/13/22 06/15/22 History tizanidine 4 mg tablet 4 mg PO Q6H PRN Tension Headache 06/13/22 06/15/22 History Past Med/Surg History Medical History Depression Obesity Pancreatitis, acute resolved over night Surgical History H/O: hysterectomy S/P ablation of atrial fibrillation Family History Other Cancer Depression Social History Smoking Status: Never smoker Tobacco Type: E-cigarettes / Vaping Hx Alcohol Use: Yes Alcohol Intake Frequency Comment: 3 drinks 2 times a month Hx Substance Use: No Preferred Language: American Communication Ability: Effective Beliefs That Will Affect Care: Spiritual Current Living Situation: Spouse and Family Feels Safe at Home: Yes Assistive Devices: None Review of Systems Review of Systems: As per HPI, all other systems reviewed and negative Physical Exam Physical Exam: GENERAL: Comfortable, pleasant, obese, looks younger than stated age, no respiratory distress SKIN: Normal color, warm HEENT: [place] palpebral conjunctivae, no ptosis, dry buccal mucosa NECK : Supple, short neck, no tenderness CHEST : CTA, no tenderness HEART : RRR, no obvious murmurs ABDOMEN: Some distention, nontender EXTREMITIES : No LE swelling/tenderness, no other conspicuous deformities noted NEUROLOGIC : Coherent, no facial asymmetry, no other gross focality Results & Data Results & Data Vital Signs (Past 12 Hours) Vital Signs Temp Pulse Pulse Resp BP Pulse Ox O2 Del Method 06/15/22 03:42 73 06/15/22 03:24 76 06/15/22 02:54 93 H 17 112/78 94 Room Air 06/15/22 02:28 150 H 14 116/85 98 Room Air 06/15/22 01:39 164 H 06/15/22 00:55 140 H 15 126/90 99 Room Air 06/15/22 01:04 160 H 06/15/22 00:22 164 H 06/15/22 00:17 145 H 06/15/22 00:13 164 H 06/15/22 00:03 36.2 C L 146 H 18 98 Room Air Laboratory Results Laboratory Results WBC 9.57 K/ul (4.8-10.8) 06/15/22 00:15 RBC 4.49 M/uL (4.20-5.40) 06/15/22 00:15 Hgb 13.4 g/dl (12.0-16.0) 06/15/22 00:15 Hct 38.5 % (37.0-47.0) 06/15/22 00:15 MCV 85.7 fL (80.0-100.0) 06/15/22 00:15 MCH 29.8 pg (25.0-34.0) 06/15/22 00:15 MCHC 34.8 g/dL (32.0-36.0) 06/15/22 00:15 RDW Std Deviation 37.9 fL (36.4-46.3) 06/15/22 00:15 RDW Coeff of Amarilys 12.1 % (11.5-14.5) 06/15/22 00:15 Plt Count 275 K/uL (130-400) 06/15/22 00:15 MPV 8.6 fL (9.4-12.4) L 06/15/22 00:15 Immature Gran % (Auto) 0.2 % 06/15/22 00:15 Neut % (Auto) 50.8 % 06/15/22 00:15 Lymph % (Auto) 42.2 % 06/15/22 00:15 Guthrie % (Auto) 5.6 % 06/15/22 00:15 Eos % (Auto) 1.0 % 06/15/22 00:15 Baso % (Auto) 0.2 % 06/15/22 00:15 Neut # (Auto) 4.85 K/uL (1.40-6.50) 06/15/22 00:15 Lymph # (Auto) 4.04 K/uL (1.2-3.4) H 06/15/22 00:15 Guthrie # (Auto) 0.54 K/uL (0.11-0.59) 06/15/22 00:15 Eos # (Auto) 0.10 K/uL (0-0.50) 06/15/22 00:15 Baso # (Auto) 0.02 K/uL (0-0.2) 06/15/22 00:15 Immature Gran # (Auto) 0.02 K/uL (0.01-0.20) 06/15/22 00:15 Sodium 140 mmol/L (136-145) 06/15/22 00:15 Potassium 3.5 mmol/L (3.5-5.1) 06/15/22 00:15 Chloride 108 mmol/L (98-107) H 06/15/22 00:15 Carbon Dioxide 23 mmol/L (21-32) 06/15/22 00:15 Anion Gap 9 (3-11) 06/15/22 00:15 BUN 15 mg/dl (6-23) 06/15/22 00:15 Creatinine 0.91 mg/dl (0.6-1.2) 06/15/22 00:15 Est Cr Clr Drug Dosing 89.0 ml/min 06/15/22 00:15 Est GFR ( Amer) 86.5 ml/min 06/15/22 00:15 Est GFR (Non-Af Amer) 74.6 ml/min 06/15/22 00:15 BUN/Creatinine Ratio 16.5 (10-20) 06/15/22 00:15 Glucose 95 mg/dl (70-99(Fasting)) 06/15/22 00:15 Calcium 9.4 mg/dl (8.6-10.3) 06/15/22 00:15 Phosphorus 2.8 mg/dl (2.5-4.9) 06/15/22 00:15 Magnesium 1.7 mg/dl (1.7-2.4) 06/15/22 00:15 Total Bilirubin 0.3 mg/dl (0.2-1.0) 06/15/22 00:15 AST 17 U/L (13-39) 06/15/22 00:15 ALT 16 U/L (7-52) 06/15/22 00:15 Alkaline Phosphatase 100 U/L (34-104) 06/15/22 00:15 Troponin I High Sens 7.8 pg/ml (0-14) 06/15/22 00:15 Total Protein 6.7 gm/dl (6.0-8.3) 06/15/22 00:15 Albumin 4.0 gm/dl (3.4-5.0) 06/15/22 00:15 Globulin 2.7 gm/dl (2.5-4.0) 06/15/22 00:15 Albumin/Globulin Ratio 1.5 (0.9-2) 06/15/22 00:15 TSH 5.141 uIu/ml (0.300-4.500) H 06/15/22 00:15 Free T4 1.14 ng/dl (0.61-1.60) 06/15/22 00:15 SARS-CoV-2, RNA, NAAT NEGATIVE (NEGATIVE) 06/15/22 00:30 Diagnostic Findings Chest x-ray as per my interpretation no congestion EKG as per my interpretation : Rate 170, SVT, normal axis, no ischemia (1) Chest pain Chest pain type: unspecified Qualified Code(s): R07.9 - Chest pain, unspecified
[2022-06-15] MEDS ORDERED: LACTATED RINGER'S 1,000 ML IV STA (05:05)
[2022-06-15] MEDS ORDERED: traMADol HCL 50 MG TABLET PO PRN (05:11)
[2022-06-15] MEDS ORDERED: MoRPHine SULFATE 4 MG/ML 1 ML CARP\\VIAL IV PRN (05:11)
[2022-06-15] MEDS ORDERED: LORazepam 0.5 MG TAB PO PRN (05:11)
[2022-06-15] MEDS ORDERED: PROMETHAZINE HCL 12.5 MG in SODIUM CHLORIDE 0.9% 50 ML IV PRN (05:11)
[2022-06-15] MEDS ORDERED: ASPIRIN CHEW 324 MG PO STA (05:34)
[2022-06-15] MEDS ORDERED: POTASSIUM CHLORIDE CRTAB 20 MEQ TABCR PO ONE (06:00)
[2022-06-15 07:48] LABS: Chol HDL Ratio 3.9 (0-5)
[2022-06-15] MEDS ORDERED: ACETAMINOPHEN 325 MG TAB PO PRN (07:55)
[2022-06-15] MEDS ORDERED: NITROGLYCERIN SL 0.4 MG/TAB TAB SL PRN (07:55)
[2022-06-15] MEDS ORDERED: tiZANidine HCL 4 MG TABLET PO PRN (07:55)
[2022-06-15 08:03] LABS: Partial Thromboplastin Ratio 1.1; Partial Thromboplastin Time 29.9 Seconds (21.0-31.0)
--- NOTE | 2022-06-15 08:33 | XRay Report ---
XR chest 1V portable CLINICAL HISTORY: Atypical chest pain. Weakness. COMPARISON STUDY: Chest radiograph June 13, 2022. FINDINGS: Lung volumes are normal. There is no consolidation to suggest pneumonia. Minimal linear lef t basilar opacity favors atelectasis. There is no pneumothorax or pleural effusion. Cardiac size is n ormal. Mediastinal contours are normal. There is no evidence for pulmonary edema. IMPRESSION: No acute cardiopulmonary findings. ACT 112: Negative or not required by law. Electronically signed by: Tr Izquierdo M.D. 06/15/2022 8:32 AM
--- NOTE | 2022-06-15 08:33 | Emergency Department Note ---
Impression & Plan Atrial flutter with rapid ventricular response, Hypomagnesemia ED Provider Note CHIEF COMPLAINT: Palpitations HISTORY OF PRESENT ILLNESS: This 47-year-old female with past medical history of atrial fib/flutter presents to the emergency department with complaints of her heart racing. She states she was here in the emergency department yesterday and was sent for cardioversion. She states she converted [place] the way [place] [employer]. Patient does have a longstanding history of atrial flutter/flutter. She is on anticoagulation. She went home with a prescription for flecainide but has not yet begun this medication. She denies significant chest pain but states she "just does not feel right." She is status post ablation. REVIEW OF SYSTEMS: A review of systems was performed with positives and pertinent negatives listed in the history of present illness. 10 systems were reviewed and are otherwise negative. ALLERGIES: see below MEDICATIONS: see below PMH: see below SOCIAL HISTORY: see below DDx: Premature contractions, electrolyte abnormality, cardiac dysrhythmia, thyro id dysfunction, pulmonary embolism, infection, gastrointestinal, as well as other pathologies. But anxious 47-year-old female PHYSICAL EXAM: Vital signs reviewed. General: Well-appearing but anxious 47-year-old female, in no significant distress. HEENT: No scleral icterus, PERRLA, neck supple. Atraumatic. Cardiovascular: Tachycardic and irregular, no extra sounds Pulmonary: Clear to auscultation bilaterally, normal work of breathing. Abdomen: Soft, obese feeling , nontender, nondistended, positive bowel sounds. Musculoskeletal: Atraumatic, no peripheral edema. Neurologic: Patient awake alert and oriented x 3 Skin: Warm, dry, no rash EMERGENCY DEPARTMENT COURSE/MDM: Patient was evaluated and appeared to be in some discomfort. IV access was obtained and laboratory work was drawn. Patient was placed on the cardiac cath technologist and noted to be in rapid atrial flutter. She was initially given IV metoprolol x3 doses without significant improvement. Patient was then given flecainide 200 mg by mouth, as prescribed by her mixer operator hot metal. Patient remained very tachycardic between 150 and 164 bpm. I did consult cardiology, Dr. Prajapati who agreed with starting a Cardizem drip. Patient's magnesium was also repleted. Case was discussed with the hospitalist service to evaluate the patient for admission and further management. She is aware of the plan and agrees. MONITORING: An order for cardiac monitoring was placed and the patient is noted to be in a rapid atrial flutter at 132 beats per minute. RADIOLOGY: Chest x-ray to my interpretation reveals no evidence of focal lung consolidation or failure, otherwise defer to radiology. EKG: To my interpretation reveals atrial flutter with 2:1 AV conduction, nonspecific T wave abnormality, prolonged QTc of 458. No PVC, no PAC. When compared to previous from June 13 at 9:22 AM, no significant change was found. DISPOSITION: admit I have personally spent greater than 60 minutes of critical care time in the direct management of this patient. This includes bedside care, interpretation of diagnostic studies, and testing, discussion with consultants, patient, and family members, and other required patient management activities. This 60 minutes is in excess of all separately billable procedures. Past Med/Surg History Medical History Depression Obesity Pancreatitis, acute resolved over night Surgical History H/O: hysterectomy S/P ablation of atrial fibrillation Family History Other Cancer Depression Social History Smoking Status: Never smoker Tobacco Type: E-cigarettes / Vaping Hx Alcohol Use: Yes Alcohol Intake Frequency Comment: 3 drinks 2 times a month Hx Substance Use: No Preferred Language: Georgian Communication Ability: Effective Beliefs That Will Affect Care: Spiritual Current Living Situation: Spouse and Family Feels Safe at Home: Yes Assistive Devices: None Allergies Allergies Allergy/AdvReac Type Severity Reaction Status Date / Time acetaminophen AdvReac Mild Nausea/Vomi Verified 06/15/22 00:58 ting Home Meds Home Medications Medication Instructions Recorded Confirmed omeprazole 20 mg capsule,delayed 20 mg PO QAM 03/09/21 06/15/22 release apixaban 5 mg tablet 5 mg PO BID 06/13/22 06/15/22 baclofen 10 mg tablet 10 mg PO BID 06/13/22 06/15/22 dicyclomine 10 mg capsule 10 mg PO BID 06/13/22 06/15/22 erenumab-aooe 70 mg/mL 70 mg subcut MONTHLY 06/13/22 06/15/22 subcutaneous auto-injector (Aimovig Autoinjector) famotidine 20 mg tablet 20 mg PO BID 06/13/22 06/15/22 ondansetron 4 mg disintegrating 4 mg PO Q8H PRN Nausea 06/13/22 06/15/22 tablet sucralfate 1 gram tablet 1 g PO TID 06/13/22 06/15/22 tizanidine 4 mg tablet 4 mg PO Q6H PRN Tension Headache 06/13/22 06/15/22 Previous Rx's Medication Instructions Recorded flecainide 100 mg tablet 200 mg PO ONCE PRN tachycardia; HR 06/13/22 >150bpm #30 tabs diltiazem HCl 120 mg 120 mg PO QAM 30 days #30 caps 06/15/22 capsule,extended release 24 hr (Cardizem CD) flecainide 50 mg tablet 50 mg PO Q12 30 days #60 tabs 06/15/22 Results & Data (ED) Vital Signs Vital Signs - 24 hr 06/15/22 00:03 06/15/22 00:13 06/15/22 00:17 Temperature 36.2 C L Temperature Source Temporal Artery Scan Pulse Rate 146 H 164 H 145 H Pulse Rate [Apical] Respiratory Rate 18 Respiratory Effort / Characteristics Respiratory Depth Normal Respiratory Pattern Blood Pressure [Right Arm] Blood Pressure Mean [Right Arm] Pulse Oximetry 98 Oxygen Delivery Method Room Air Sepsis Recent Fever Within 48 Hours No Sepsis New/Unexplained Change in Mental Status N/A Sepsis Action Taken by Nursing No Action Required 06/15/22 00:22 06/15/22 01:04 06/15/22 00:55 Temperature Temperature Source Pulse Rate 164 H 160 H Pulse Rate [Apical] 140 H Respiratory Rate 15 Respiratory Effort / Characteristics Non-Labored Spontaneous Respiratory Depth Normal Respiratory Pattern Regular Blood Pressure [Right Arm] 126/90 Blood Pressure Mean [Right Arm] 102 Pulse Oximetry 99 Oxygen Delivery Method Room Air Sepsis Recent Fever Within 48 Hours Sepsis New/Unexplained Change in Mental Status Sepsis Action Taken by Nursing 06/15/22 01:39 06/15/22 02:28 06/15/22 02:54 Temperature Temperature Source Pulse Rate 164 H Pulse Rate [Apical] 150 H 93 H Respiratory Rate 14 17 Respiratory Effort / Characteristics Non-Labored Spontaneous Non-Labored Spontaneous Respiratory Depth Normal Normal Respiratory Pattern Regular Regular Blood Pressure [Right Arm] 116/85 112/78 Blood Pressure Mean [Right Arm] 95 89 Pulse Oximetry 98 94 Oxygen Delivery Method Room Air Room Air Sepsis Recent Fever Within 48 Hours Sepsis New/Unexplained Change in Mental Status Sepsis Action Taken by Nursing 06/15/22 03:24 06/15/22 03:42 Temperature Temperature Source Pulse Rate 76 73 Pulse Rate [Apical] Respiratory Rate Respiratory Effort / Characteristics Respiratory Depth Respiratory Pattern Blood Pressure [Right Arm] Blood Pressure Mean [Right Arm] Pulse Oximetry Oxygen Delivery Method Sepsis Recent Fever Within 48 Hours Sepsis New/Unexplained Change in Mental Status Sepsis Action Taken by [facility] Medications Current Medication List: was personally reviewed by me Laboratory Data Attestation: I reviewed the patient's lab results. 06/15/22 00:15 06/15/22 00:15 Lab Results 06/15/22 06/15/22 06/15/22 Range/Units 00:15 00:15 00:15 WBC 9.57 (4.8-10.8) K/ul RBC 4.49 (4.20-5.40) M/uL Hgb 13.4 (12.0-16.0) g/dl Hct 38.5 (37.0-47.0) % MCV 85.7 (80.0-100.0) fL MCH 29.8 (25.0-34.0) pg MCHC 34.8 (32.0-36.0) g/dL RDW Std Deviation 37.9 (36.4-46.3) fL RDW Coeff of Amarilys 12.1 (11.5-14.5) % Plt Count 275 (130-400) K/uL MPV 8.6 L (9.4-12.4) fL Immature Gran % (Auto) 0.2 % Neut % (Auto) 50.8 % Lymph % (Auto) 42.2 % [place] % (Auto) 5.6 % Eos % (Auto) 1.0 % Baso % (Auto) 0.2 % Neut # (Auto) 4.85 (1.40-6.50) K/uL Lymph # (Auto) 4.04 H (1.2-3.4) K/uL [place] # (Auto) 0.54 (0.11-0.59) K/uL Eos # (Auto) 0.10 (0-0.50) K/uL Baso # (Auto) 0.02 (0-0.2) K/uL Immature Gran # (Auto) 0.02 (0.01-0.20) K/uL Sodium 140 (136-145) mmol/L Potassium 3.5 (3.5-5.1) mmol/L Chloride 108 H (98-107) mmol/L Carbon Dioxide 23 (21-32) mmol/L Anion Gap 9 (3-11) BUN 15 (6-23) mg/dl Creatinine 0.91 (0.6-1.2) mg/dl Est Cr Clr Drug Dosing 89.0 ml/min Est GFR ( Amer) 86.5 ml/min Est GFR (Non-Af Amer) 74.6 ml/min BUN/Creatinine Ratio 16.5 (10-20) Glucose 95 (70-99(Fasting)) mg/dl Calcium 9.4 (8.6-10.3) mg/dl Phosphorus 2.8 (2.5-4.9) mg/dl Magnesium 1.7 (1.7-2.4) mg/dl Total Bilirubin 0.3 (0.2-1.0) mg/dl AST 17 (13-39) U/L ALT 16 (7-52) U/L Alkaline Phosphatase 100 (34-104) U/L Troponin I High Sens 7.8 (0-14) pg/ml Total Protein 6.7 (6.0-8.3) gm/dl Albumin 4.0 (3.4-5.0) gm/dl Globulin 2.7 (2.5-4.0) gm/dl Albumin/Globulin Ratio 1.5 (0.9-2) TSH 5.141 H (0.300-4.500) uIu/ml Free T4 1.14 (0.61-1.60) ng/dl SARS-CoV-2, RNA, NAAT (NEGATIVE) 06/15/22 Range/Units 00:30 WBC (4.8-10.8) K/ul RBC (4.20-5.40) M/uL Hgb (12.0-16.0) g/dl Hct (37.0-47.0) % MCV (80.0-100.0) fL MCH (25.0-34.0) pg MCHC (32.0-36.0) g/dL RDW Std Deviation (36.4-46.3) fL RDW Coeff of Amarilys (11.5-14.5) % Plt Count (130-400) K/uL MPV (9.4-12.4) fL Immature Gran % (Auto) % Neut % (Auto) % Lymph % (Auto) % [place] % (Auto) % Eos % (Auto) % Baso % (Auto) % Neut # (Auto) (1.40-6.50) K/uL Lymph # (Auto) (1.2-3.4) K/uL [place] # (Auto) (0.11-0.59) K/uL Eos # (Auto) (0-0.50) K/uL Baso # (Auto) (0-0.2) K/uL Immature Gran # (Auto) (0.01-0.20) K/uL Sodium (136-145) mmol/L Potassium (3.5-5.1) mmol/L Chloride (98-107) mmol/L Carbon Dioxide (21-32) mmol/L Anion Gap (3-11) BUN (6-23) mg/dl Creatinine (0.6-1.2) mg/dl Est Cr Clr Drug Dosing ml/min Est GFR ( Amer) ml/min Est GFR (Non-Af Amer) ml/min BUN/Creatinine Ratio (10-20) Glucose (70-99(Fasting)) mg/dl Calcium (8.6-10.3) mg/dl Phosphorus (2.5-4.9) mg/dl Magnesium (1.7-2.4) mg/dl Total Bilirubin (0.2-1.0) mg/dl AST (13-39) U/L ALT (7-52) U/L Alkaline Phosphatase (34-104) U/L Troponin I High Sens (0-14) pg/ml Total Protein (6.0-8.3) gm/dl Albumin (3.4-5.0) gm/dl Globulin (2.5-4.0) gm/dl Albumin/Globulin Ratio (0.9-2) TSH (0.300-4.500) uIu/ml Free T4 (0.61-1.60) ng/dl SARS-CoV-2, RNA, NAAT NEGATIVE (NEGATIVE) Administered Medications Discontinued Medications Aspirin (Aspirin Chew 324 Mg) 324 mg PO NOW STA Stop: 06/15/22 05:35 Last Admin: 06/15/22 05:50 Dose: 324 mg Documented By: LELE Baclofen (Baclofen 10 Mg Tab) 10 mg PO BID CUBA Stop: 07/15/22 08:59 Last Admin: 06/15/22 09:13 Dose: 10 mg Documented By: MAI Diltiazem HCl (Diltiazem Hcl 30 Mg Tab) 30 mg PO NOW ONE Stop: 06/15/22 14:34 Last Admin: 06/15/22 14:55 Dose: 30 mg Documented By: MAI Famotidine (Famotidine 20 Mg Tab) 20 mg PO BID CUBA Stop: 07/15/22 08:59 Last Admin: 06/15/22 09:13 Dose: 20 mg Documented By: MAI Flecainide Acetate (Flecainide Acetate 100 Mg Tablet) 200 mg PO NOW STA Stop: 06/15/22 00:24 Last Admin: 06/15/22 00:30 Dose: 200 mg Documented By: CRYSTAL Flecainide Acetate (Flecainide Acetate 100 Mg Tablet) 50 mg PO ONE ONE Stop: 06/15/22 10:19 Last Admin: 06/15/22 10:36 Dose: 50 mg Documented By: MAI Sodium Chloride (Nss 1000ml) 1,000 mls @ 999 mls/hr IV .Q1H1M ONE Stop: 06/15/22 01:18 Last Infusion: 06/15/22 01:57 Dose: 0 mls/hr Documented By: orthotist or prosthetist: 06/15/22 00:22 Dose: 999 mls/hr Documented By: LELE Magnesium Sulfate/Dextrose (Magnesium Sulfate / D5w) 1 gm in 100 mls @ 200 mls/hr IV Q30M CUBA Stop: 06/15/22 02:12 Last Infusion: 06/15/22 04:25 Dose: 0 mls/hr Documented By: orthotist or prosthetist: 06/15/22 02:25 Dose: 200 mls/hr Documented By: Infusion: 06/15/22 02:14 Dose: 200 mls/hr Documented By: orthotist or prosthetist: 06/15/22 01:44 Dose: 200 mls/hr Documented By: MED Diltiazem HCl 125 mg/ Dextrose 125 mls @ 0 mls/hr IV .Q0M [facility]; Protocol Stop: 07/15/22 02:14 Last Titration: 06/15/22 03:48 Dose: 0 mg/hr, 0 mls/hr Documented By: LELE Co-signed By: CHANO Admin: 06/15/22 02:21 Dose: 5 mg/hr, 5 mls/hr Documented By: LELE Co-signed By: CHANO Lactated Ringer's (Lr) 1,000 mls @ 80 mls/hr IV .[id number] STA Stop: 06/15/22 17:34 Last Admin: 06/15/22 05:21 Dose: 80 mls/hr Documented By: LELE Metoprolol Succinate (Metoprolol Succ 25mg Ext Rel Tab) 25 mg PO BID [facility] Stop: 07/15/22 08:59 Last Admin: 06/15/22 09:13 Dose: 25 mg Documented By: MAI Metoprolol Tartrate (Metoprolol Tartrate 1 Mg/Ml Vial) Confirm Administered Dose 5 mg IV .ST-MED ONE Stop: 06/15/22 00:21 Last Admin: 06/15/22 00:22 Dose: 5 mg Documented By: LELE Metoprolol Tartrate (Metoprolol Tartrate 1 Mg/Ml Vial) 5 mg IV NOW STA Stop: 06/15/22 01:01 Last Admin: 06/15/22 01:04 Dose: 5 mg Documented By: LELE Metoprolol Tartrate (Metoprolol Tartrate 1 Mg/Ml Vial) 5 mg IV NOW STA Stop: 06/15/22 01:14 Last Admin: 06/15/22 01:39 Dose: 5 mg Documented By: LELE Nitroglycerin (Nitroglycerin Sl 0.4 Mg/Tab Tab) 0.4 mg SL NOW STA Stop: 06/15/22 05:04 Last Admin: 06/15/22 05:17 Dose: 0.4 mg Documented By: LELE Pantoprazole Sodium (Pantoprazole 40 Mg Tab) 40 mg PO QAM [facility] Stop: 07/15/22 08:59 Last Admin: 06/15/22 09:14 Dose: 40 mg Documented By: MAI Potassium Chloride (Potassium Chloride Pwd 20 Meq Pack) 40 meq PO NOW STA Stop: 06/15/22 02:48 Last Admin: 06/15/22 03:17 Dose: 40 meq Documented By: MED Potassium Chloride (Potassium Chloride Crtab 20 Meq Tabcr) 20 meq PO ONE ONE Stop: 06/15/22 06:01 Last Admin: 06/15/22 05:25 Dose: 20 meq Documented By: LELE Sucralfate (Sucralfate 1 Gm Tab) 1 gm PO TID CUBA Stop: 07/15/22 08:59 Last Admin: 06/15/22 13:41 Dose: 1 gm Documented By: Admin: 06/15/22 09:13 Dose: 1 gm Documented By: MAI Imaging Data Radiologist's Impression: Chest X-Ray 06/15/22 02:48 XR chest 1V portable CLINICAL HISTORY: Atypical chest pain. Weakness. COMPARISON STUDY: Chest radiograph June 13, 2022. FINDINGS: Lung volumes are normal. There is no consolidation to suggest pneumonia. Minimal linear left basilar opacity favors atelectasis. There is no pneumothorax or pleural effusion. Cardiac size is normal. Mediastinal contours are normal. There is no evidence for pulmonary edema. IMPRESSION: No acute cardiopulmonary findings. ACT 112: Negative or not required by law. Electronically signed by: Tr Izquierdo M.D. 06/15/2022 8:32 AM Discharge Plan Visit Data Chief Complaint: Chest Pain Stated Complaint: CHEST PAIN ED Provider: Patricia Yeung Discharge Problem: Atrial flutter with rapid ventricular response, Hypomagnesemia Patient Disposition: Admitted As Inpatient Condition: Good Discharge Instructions Interventions: ED Discharge Assessment Last Done: 06/15/22 07:51
[2022-06-15] MEDS ORDERED: BACLOFEN 10 MG TAB PO SCH (09:00)
[2022-06-15] MEDS ORDERED: FAMOTIDINE 20 MG TAB PO SCH (09:00)
[2022-06-15] MEDS ORDERED: METOPROLOL SUCC 25MG EXT REL TAB PO SCH (09:00)
[2022-06-15] MEDS ORDERED: PANTOprazole 40 MG TAB PO SCH (09:00)
[2022-06-15] MEDS: SUCRALFATE 1 GM TAB PO SCH ×2 (09:13→13:41)
--- NOTE | 2022-06-15 10:10 | Cardiology Consultation ---
Date of Consultation June 15, 2022 Assessment & Plan (1) Atrial flutter: -- Patient underwent recent electrophysiology study and radiofrequency pulmonary vein ablation on 05/31/2022 having been performed for the treatment of symptomatic paroxysmal atrial fibrillation -Exercise stress test performed in January, was negative for inducible ischemia -In advance of her electrophysiology study the patient underwent a cardiac CT at [facility] in May,. CT report reviewed, images reviewed independently. The CT was protocol lysed for evaluation of the left atrial appendage and the pulmonary vein anatomy rather than the coronaries however thin 0.6 mm slices were performed. The CT was not protocol lysed for evaluation of the coronary arteries and sublingual nitroglycerin was not administered and so therefore the study is somewhat technically limited, but per my review of her coronaries, the left main, LAD, and circumflex system are relatively well visualized with minimal calcified plaque and no obvious luminal stenosis. The mid right coronary artery is not well visualized due to artifact, but the rest of the right coronary artery is relatively well seen without suggestion of luminal stenosis on the technically limited none nitroglycerin enhanced views. Patient has had high-sensitivity troponin levels remain negative x2, no ischemic changes on her EKG when she is tachycardic, and the previous stress test and cardiac CT data is reassuring but I do not think that her chest tightness and shortness of breath is due to underlying coronary heart disease in the setting of tachycardia. -Echocardiogram performed this morning reveals normal biventricular systolic function. There is a trace circumferential pericardial effusion. Some characteristics of her discomfort such as feeling worse when she lies supine to suggest possible pericarditis which is not uncommon after such in a ablation procedure. Diagnostics: A third HS troponin level has been requested as well as an ESR, CRP, and repeat chemistry panel. Therapeutics: On 2 recent occasions, the tachycardia seemed to respond to diltiazem infusion, we will therefore discontinue her metoprolol succinate and transition her to diltiazem CD 120 mg by mouth daily in the morning, next dose on 06/16/2022 at 9 AM. This transition will need to be performed with caution as her baseline heart rate is in the 60s. Often times arrhythmias occurred shortly after an ablation due to irritation of the endocardium. We will place her on a short-term course of flecainide 50 mg twice daily which she had been on before the ablation. The maximum dose of flecainide is 300 mg in 24 hours and she received 200 mg at 12:30 AM. We will therefore start her first dose of 50 mg now and next dose this evening and 50 mg twice daily thereafter. Continue Eliquis 5 mg twice daily for stroke prophylaxis. Future considerations include starting colchicine for pericarditis depending on the ESR and CRP results. Colchicine and diltiazem however do have a potential CYP 34A interaction, that can lead to increase colchicine levels so once a day dosing would be indicated rather than twice a day. Nonsteroidal anti- inflammatory medication is a consideration, but given her need for anticoagulation, might be best to avoid this. As noted, will await blood work. Case discussed with Dr Yeung by phone on 06/15/2022 at 2:10 AM. Case discussed with Dr. Campbell of [facility] for the purpose of ongoing coordination of care with plan discussed as noted above. 65 minutes were spent on direct patient care including reviewing the patient's records, imaging data, performing a history and physical exam on the patient, counseling her with regards to treatment options, coordinating care with other providers as noted above, and completing this note. History of Present Illness Attending Physician: Volodymyr Spencer MD History of Present Illness Hailey Sharma is a 47 year old female seen in cardiology consultation per the request of Dr Yeung and Dr Leach for the evaluation of tachycardia with associated symptoms of chest heaviness, shortness of breath, and near syncope. The patient has a history of symptomatic paroxysmal atrial fibrillation. She has been followed by Dr Campbell and Dr Montes of [facility] electrophysiology and had a previous history of ongoing symptomatic episodes despite treatment and included metoprolol succinate 25 mg daily and flecainide 50 mg twice daily. On 05/31/2022 she underwent an electrophysiology study and pulmonary vein radiofrequency catheter ablation. Postprocedure she was discharged on ongoing treatment with Eliquis 5 mg twice daily and metoprolol succinate 25 mg daily. She reports that immediately after the procedure she felt great. She however presented to the emergency department on 06/13/2022 with acute onset of symptoms of a racing heart rate, heart rates as high as 190 bpm at home. An EKG performed in the emergency department revealed a narrow complex tachycardia with a regular RR interval suggestive of atrial flutter rather than her previously noted atrial fibrillation. She received 20 mg of IV diltiazem. Arrangements had been made for direct-current cardioversion that day, but when she was in the elevator being transferred from the emergency department to the heart center she spontaneously converted to sinus rhythm. She was subsequently discharged with plans to increase her metoprolol succinate to 25 mg 2 times per day and to use flecainide on an as-needed basis to take 200 mg at onset of recurrent tachycardia episodes. Last evening 06/14/2022 at approximately 9 PM she was in her normal state of health getting ready to go to bed at 9:00 PM. She noted that she was trying to get comfortable and when she laid on her left side she felt abrupt onset of feeling her heart rate increase with associated severe shortness of breath and chest heaviness. She could not catch her breath and had to get out of bed. Upon getting out of bed she had several episodes of near syncope like she was going to "blackout ". Her symptoms including chest heaviness and severe shortness of breath persisted prompting her to come back to the emergency department. EKG performed 06/15/2022 at 12:11 AM revealed a narrow complex tachycardia at 168 bpm consistent with an atypical atrial flutter. The patient was treated with 5 mg of IV metoprolol, 200 mg of oral flecainide, and then ultimately was placed on a diltiazem infusion and converted back to sinus rhythm this morning at 3:27 AM. Patient noted feeling ill right up until when she converted and then felt much improved afterward. She still however has some residual chest heaviness, and she notes that it feels worse when she tries to lie supine. Past Medical History: Mild obesity, BMI 35.41 kg/m Nonischemic stress echocardiogram 02/07/2023, completing 7 METS on Stanley protocol at that time. Resting study revealed normal myocardial thickness, LVEF at rest 55-59%, no significant valvular heart disease. Screening lipid panel 12/26/2021: Total cholesterol 196, HDL 48, LDL 124 Migraine headache syndrome Occipital neuralgia Social History: , Medardo Glunt No significant alcohol use Past history of vaping, no cigarette smoking Family History: Maternal grandmother had a history of congestive heart failure and she believes CABG, and in her 70s The patient's maternal grandfather of a presumed myocardial infarction at the age of 49 Patient's father is alive in his 60s having had a myocardial infarction at the age of either 49 or 50. She does not believe that he ever had a heart stent Allergies Allergy/AdvReac Type Severity Reaction Status Date / Time acetaminophen AdvReac Mild Nausea/Vomi Verified 06/15/22 00:58 ting Home Medications Medication Instructions Recorded Confirmed Type omeprazole 20 mg capsule,delayed 20 mg PO QAM 03/09/21 06/15/22 History release apixaban 5 mg tablet 5 mg PO BID 06/13/22 06/15/22 History baclofen 10 mg tablet 10 mg PO BID 06/13/22 06/15/22 History dicyclomine 10 mg capsule 10 mg PO BID 06/13/22 06/15/22 History erenumab-aooe 70 mg/mL 70 mg subcut MONTHLY 06/13/22 06/15/22 History subcutaneous auto-injector (Aimovig Autoinjector) famotidine 20 mg tablet 20 mg PO BID 06/13/22 06/15/22 History flecainide 100 mg tablet 200 mg PO ONCE PRN tachycardia; HR 06/13/22 06/15/22 Rx >150bpm #30 tabs metoprolol succinate 25 mg 25 mg PO BID #60 tabs 06/13/22 06/15/22 Rx tablet,extended release 24 hr ondansetron 4 mg disintegrating 4 mg PO Q8H PRN Nausea 06/13/22 06/15/22 History tablet sucralfate 1 gram tablet 1 g PO TID 06/13/22 06/15/22 History tizanidine 4 mg tablet 4 mg PO Q6H PRN Tension Headache 06/13/22 06/15/22 History Patient History Medical History Depression Obesity Pancreatitis, acute resolved over night Surgical History H/O: hysterectomy S/P ablation of atrial fibrillation Family History Other Cancer Depression Social History Smoking Status: Never smoker Tobacco Type: E-cigarettes / Vaping Hx Alcohol Use: Yes Alcohol Intake Frequency Comment: 3 drinks 2 times a month Hx Substance Use: No Preferred Language: Hungarian Communication Ability: Effective Beliefs That Will Affect Care: None Current Living Situation: Spouse and Family Feels Safe at Home: Yes Assistive Devices: None Review of Systems Review of Systems: All systems reviewed & are unremarkable except as noted in HPI & below Physical Exam Constitutional: WD/WN, vitals as above Eyes: PERRL, conjunctivae normal, anicteric sclerae Respiratory: normal respiratory effort, lungs clear to auscultation Cardiovascular: RRR, no murmur, no edema Gastrointestinal (Abdomen): normal bowel sounds, soft, nontender, no hepatosplenomegaly Neurologic: PERRL, EOMI, accommodation nl, no face palsy, no dysarthria Results & Data Vital Signs (Past 12 Hours) Vital Signs Temp Pulse Pulse Resp BP Pulse Ox O2 Del Method 06/15/22 07:47 63 06/15/22 03:42 73 06/15/22 03:24 76 06/15/22 02:54 93 H 17 112/78 94 Room Air 06/15/22 02:28 150 H 14 116/85 98 Room Air 06/15/22 01:39 164 H 06/15/22 00:55 140 H 15 126/90 99 Room Air 06/15/22 01:04 160 H 06/15/22 00:22 164 H 06/15/22 00:17 145 H 06/15/22 00:13 164 H 06/15/22 00:03 36.2 C L 146 H 18 98 Room Air Laboratory Results Cardiac Enzymes 06/15/22 06/15/22 Range/Units 00:15 07:08 AST 17 (13-39) U/L Troponin I High Sens 7.8 8.5 (0-14) pg/ml Coagulation 06/15/22 Range/Units 07:08 APTT 29.9 (21.0-31.0) Seconds Lipids 06/15/22 Range/Units 07:08 Triglycerides 62 (0-150) mg/dl Cholesterol 140 (0-200) mg/dl HDL Cholesterol 36 mg/dl Cholesterol/HDL Ratio 3.9 (0-5) CBC 06/15/22 Range/Units 00:15 WBC 9.57 (4.8-10.8) K/ul RBC 4.49 (4.20-5.40) M/uL Hgb 13.4 (12.0-16.0) g/dl Hct 38.5 (37.0-47.0) % Plt Count 275 (130-400) K/uL Neut # (Auto) 4.85 (1.40-6.50) K/uL Lymph # (Auto) 4.04 H (1.2-3.4) K/uL [place] # (Auto) 0.54 (0.11-0.59) K/uL Eos # (Auto) 0.10 (0-0.50) K/uL Baso # (Auto) 0.02 (0-0.2) K/uL Comprehensive Metabolic Panel 06/15/22 Range/Units 00:15 Sodium 140 (136-145) mmol/L Potassium 3.5 (3.5-5.1) mmol/L Chloride 108 H (98-107) mmol/L Carbon Dioxide 23 (21-32) mmol/L BUN 15 (6-23) mg/dl Creatinine 0.91 (0.6-1.2) mg/dl Glucose 95 (70-99(Fasting)) mg/dl Calcium 9.4 (8.6-10.3) mg/dl AST 17 (13-39) U/L ALT 16 (7-52) U/L Alkaline Phosphatase 100 (34-104) U/L Total Protein 6.7 (6.0-8.3) gm/dl Albumin 4.0 (3.4-5.0) gm/dl Intake and Output 06/14/22 06/15/22 06/15/22 22:59 06:59 14:59 Intake Total 1207.25 / 1207.25 Balance 1207.25 / 1207.25 Intake: IV 1207.25 / 1207.25 Magnesium Sulfate / D5w 1 gm In 200 / 200 100 ml @ 200 mls/hr IV Q30M [facility] Rx#:[id number] Sodium Chloride 0.9% 1000ML 1, 1000 / 1000 000 ml @ 999 mls/hr IV .Q1H1M [facility] Rx#:[id number] dilTIAZem HCL 125 mg In 7.25 / 7.25 Dextrose 5% 100 ml @ 5 MG/HR 5 mls/hr IV .Q24H [facility] Rx#: [id number] Other: Weight 97.4 kg Diagnostic Findings Chest x-ray performed 06/15/2022, radiology report describes no acute cardiopulmonary findings Repeat lipid panel performed 06/15/2022: Total cholesterol 140, LDL 92, HDL 36 Screening TSH minimally elevated at 5.14 micro national units per liter, normal free T4 SARS-CoV-2 screen was negative Serial EKG tracings performed overnight last night reviewed/interpreted independently initially revealing what appears to be an atypical atrial flutter at 160 bpm, with ventricular rate subsequently slowed to the 130s, ultimate conversion to sinus rhythm as observed on 06/15/2022 at 3:45 AM with sinus rhythm at 70 bpm. Sinus rhythm once again noted this morning. -There were no ST changes suggestive of ischemia or pericarditis.
[2022-06-15] MEDS ORDERED: FLECAINIDE ACETATE 100 MG TABLET PO ONE (10:18)
--- NOTE | 2022-06-15 10:49 | Electrocardiogram Report ---
Test Reason : Blood Pressure : / mmHG Vent. Rate : 168 BPM Atrial Rate : 000 BPM P-R Int : 000 ms QRS Dur : 076 ms QT Int : 274 ms P-R-T Axes : 000 026 037 degrees QTc Int : 458 ms Supraventricular tachycardia vs atrial flutter with 2:[address] abnormality Abnormal ECG When compared with ECG of 13-JUN-2022 11:33, Vent. rate has increased BY 105 BPM T wave inversion no longer evident in Inferior leads Reconfirmed by Jose Lowe ([id number]) on 06/15/2022 11:47:32 AM Referred By: REFERRED SELF Confirmed By:Jose Lowe
--- NOTE | 2022-06-15 10:51 | Electrocardiogram Report ---
Test Reason : Blood Pressure : / mmHG Vent. Rate : 133 BPM Atrial Rate : 227 BPM P-R Int : 000 ms QRS Dur : 074 ms QT Int : 282 ms P-R-T Axes : 000 002 -22 degrees QTc Int : 419 ms Atrial flutter with variable A-V block Nonspecific ST and T wave abnormality Abnormal ECG When compared with ECG of 15-JUN-2022 00:11, (unconfirmed) HR has decreased Confirmed by Jose Lowe ([id number]) on 06/15/2022 10:51:19 AM Referred By: REFERRED SELF Confirmed By:Jose Lowe
--- NOTE | 2022-06-15 10:56 | Electrocardiogram Report ---
Test Reason : Blood Pressure : / mmHG Vent. Rate : 070 BPM Atrial Rate : 070 BPM P-R Int : 162 ms QRS Dur : 080 ms QT Int : 406 ms P-R-T Axes : 021 -12 -04 degrees QTc Int : 438 ms Normal sinus rhythm Normal ECG When compared with ECG of 15-JUN-2022 00:19, (unconfirmed) Sinus rhythm has replaced Atrial flutter Vent. rate has decreased BY 63 BPM Nonspecific T wave abnormality no longer evident in Anterolateral leads Confirmed by Jose Lowe ([id number]) on 06/15/2022 10:56:25 AM Referred By: REFERRED SELF Confirmed By:Jose Lowe
[2022-06-15 10:59] LABS: Anion Gap 3 (3-11); BUN Creatinine Ratio 13.4 (10-20); Blood Urea Nitrogen 11 mg/dl (6-23); C Reactive Protein < 0.50 mg/dl (0-0.5); Calcium 8.8 mg/dl (8.6-10.3); Carbon Dioxide 27 mmol/L (21-32); Chloride 110 mmol/L (98-107); Creatinine Clr Calc Pharmacy 98.7 ml/min; Est GFR (African American) 98.1 ml/min; Est GFR (Non-African American) 84.6 ml/min; Glucose 97 mg/dl (70-99(Fasting)); Magnesium 2.2 mg/dl (1.7-2.4); Potassium 4.3 mmol/L (3.5-5.1); Sodium 140 mmol/L (136-145)
[2022-06-15 11:09] LABS: Troponin I High Sensitivity 8.5 pg/ml (0-14)
--- NOTE | 2022-06-15 11:41 | Electrocardiogram Report ---
Test Reason : Blood Pressure : / mmHG Vent. Rate : 070 BPM Atrial Rate : 070 BPM P-R Int : 174 ms QRS Dur : 084 ms QT Int : 438 ms P-R-T Axes : 017 -14 000 degrees QTc Int : 473 ms Normal sinus rhythm Normal ECG When compared with ECG of 15-JUN-2022 03:45, (unconfirmed) No significant change was found Confirmed by Jose Lowe ([id number] on 06/15/2022 11:41:11 AM Referred By: REFERRED SELF Confirmed By:Jose Lowe
--- NOTE | 2022-06-15 12:13 | Communication Note ---
Date of Service: June 15, 2022 Third HS troponin, C-RP, and ESR all within normal limits. Proceed without colchicine for now. Continue with medication plan as outlined in consultation note from earlier today.
[2022-06-15] MEDS ORDERED: dilTIAZem HCL 30 MG TAB PO ONE (14:33)
--- NOTE | 2022-06-15 14:42 | Communication Note ---
Date of Service: June 15, 2022 Patient reassessed. Feeling better. SR in the 70 to 80s present. Stable for discharge after receiving diltiazem 30 mg PO x 1. Already has a follow up visit with EP. Medications at discharge eliquis 5 mg by mouth two times per day. Diltiazem CD 120 mg daily, start am of 06/16/22 (new med-needs rx) Flecainide 50 mg by mouth two times per day, next dose this evening at 8-9 pm.(new medication- needs rx) Discontinue Metoprolol succinate.
--- NOTE | 2022-06-15 16:17 | Hospitalist Progress Note ---
Date of Service June 15, 2022 Assessment & Plan (1) Atrial flutter: Plan: PAF status post recent ablation on Eliquis recurrent bouts of uncontrolled A-fib/flutter/SVT last 48 hours Patient currently NSR status post flecainide administration at the ER. Patient given IV metoprolol and diltiazem at the ER. Patient converted to sinus rhythm, heart rate controlled. Troponin levels normal Evaluated by cardiology service Recommend to stop usual metoprolol succinate and changed to diltiazem CD 120 mg p.o. daily Also started on flecainide 50 mg twice a day Continue Eliquis twice a day Follow-up with cardiology service in 1 week plan of care discussed with patient all questions answered She is understanding, agreeable, comfortable with the plan of care Admission and Anticipated Discharge Date Admission Date: June 15, 2022 Subjective Follow-up for atrial flutter, etc. Seen resting in bed, sitting up, not in distress, comfortable States she feels better overall Just very tired from not sleeping last night No active shortness of breath, chest pain, palpitations, dizziness, nausea No any other symptoms States she is ready for discharge today Review of Systems Review of Systems: all noted and negative except for above Physical Exam Physical Exam: General- oriented x 3, not in distress, speaks in sentences with no effort or accessory muscle use Eyes- anicteric Neck- no JVD Lungs- clear breath sounds bilaterally, no rales/wheezes Heart- normal rate, regular rhythm; no murmurs Abdomen- normal bowel sounds, nondistended, soft, nontender Extremities- no pretibial edema, no calf tenderness Neuro- alert, oriented x 3; no gross focal neurologic deficits Skin- warm & dry Results & Data Results & Data Vital Signs (Past 12 Hours) Vital Signs Temp Pulse Pulse Resp BP BP Pulse Ox 06/15/22 15:19 36.2 C L 71 18 128/68 95 06/15/22 15:12 76 06/15/22 11:30 68 17 98 06/15/22 11:30 118/82 06/15/22 11:00 70 15 96 06/15/22 11:00 112/71 06/15/22 10:30 70 15 97 06/15/22 10:30 110/82 06/15/22 10:00 70 15 99 06/15/22 10:00 119/84 06/15/22 09:30 69 13 99 06/15/22 09:30 129/93 06/15/22 09:00 63 15 95 06/15/22 09:00 129/100 06/15/22 08:30 72 18 97 06/15/22 08:30 139/102 H 06/15/22 08:00 62 15 98 06/15/22 08:00 122/90 06/15/22 07:30 72 16 98 06/15/22 07:30 115/86 06/15/22 07:00 64 16 06/15/22 07:00 121/88 06/15/22 06:30 70 16 97 06/15/22 06:30 110/85 06/15/22 06:00 71 16 97 06/15/22 06:00 118/88 06/15/22 05:30 73 20 97 06/15/22 05:30 110/84 06/15/22 05:01 69 20 96 06/15/22 05:01 140/110 H 06/15/22 05:00 71 15 97 06/15/22 04:45 79 16 95 06/15/22 04:45 108/89 06/15/22 04:30 114/87 06/15/22 04:30 79 20 96 06/15/22 04:15 78 17 97 06/15/22 04:15 112/87 06/15/22 12:08 71 18 128/68 95 06/15/22 07:47 63 O2 Del Method 06/15/22 15:19 06/15/22 15:12 06/15/22 11:30 06/15/22 11:30 06/15/22 11:00 06/15/22 11:00 06/15/22 10:30 06/15/22 10:30 06/15/22 10:00 06/15/22 10:00 06/15/22 09:30 06/15/22 09:30 06/15/22 09:00 06/15/22 09:00 06/15/22 08:30 06/15/22 08:30 06/15/22 08:00 06/15/22 08:00 06/15/22 07:30 06/15/22 07:30 06/15/22 07:00 06/15/22 07:00 06/15/22 06:30 06/15/22 06:30 06/15/22 06:00 06/15/22 06:00 06/15/22 05:30 06/15/22 05:30 06/15/22 05:01 06/15/22 05:01 06/15/22 05:00 06/15/22 04:45 06/15/22 04:45 06/15/22 04:30 06/15/22 04:30 06/15/22 04:15 06/15/22 04:15 06/15/22 12:08 Room Air 06/15/22 07:47
--- NOTE | 2022-06-15 16:19 | Discharge Summary ---
Discharge Summary Date of Service June 15, 2022 Notes For Next Care Provider Medication Changes From Visit New medications: Flecainide 50 mg twice a day Diltiazem CD 120 mg daily stop taking metoprolol succinate Admission HPI Per Admitting Provider History obtained from patient and records. Medical history significant for PAF status post recent ablation on Eliquis, migraine, GERD, mood disorder, past vape abuse. Last confinement August 2018 for gallstone pancreatitis status post cholecystectomy. New onset onset atrial flutter confinement status post spontaneous conversion to NSR. Patient discharged on metoprolol. Eliquis eventually started outpatient due to recurrent episodes of A-fib. Patient underwent pulmonary vein isolation ablation at [facility] 2 weeks ago for uncontrolled A-fib. Patient well until 2 days ago when she experienced chest pain, shortness of breath, and palpitations, heart rate up to 190s. Compliant with medications. No unusual stress. Patient directed to ER by hydraulic jack mechanic. Patient noted to be in rapid A-fib/flutter at the ER. EPS recommended DC cardioversion. Upon arrival at the [facility], patient converted to NSR. Patient instructed to increase Toprol 25 mg nightly to twice daily dosing. Patient given prescription for Flecainide to be taken 1 time in a 24-hour at onset of tachycardia. Patient roused from sleep last night with substernal pain going to the neck/jaw with shortness of breath and palpitations. Feels like she is going to faint. No initial headache symptoms. Patient noted to be in rapid A-fib upon arrival at the ER. IV metoprolol, flecainide administered at the ER followed by IV Cardizem infusion. Subsequent conversion to NSR. Patient still complaining of chest pain going to the jaw despite A-fib termination. Chest pain relieved by nitroglycerin administration at the ER. 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 Admission Exam Per Admitting Provider GENERAL: Comfortable, pleasant, obese, looks younger than stated age, no respiratory distress SKIN: Normal color, warm HEENT: [place] palpebral conjunctivae, no ptosis, dry buccal mucosa NECK : Supple, short neck, no tenderness CHEST : CTA, no tenderness HEART : RRR, no obvious murmurs ABDOMEN: Some distention, nontender EXTREMITIES : No LE swelling/tenderness, no other conspicuous deformities noted NEUROLOGIC : Coherent, no facial asymmetry, no other gross focality Principal Dx & Hospital Course #1 = Principal Diagnosis (1) Atrial flutter: PAF status post recent ablation on Eliquis recurrent bouts of uncontrolled A-fib/flutter/SVT last 48 hours Patient currently NSR status post flecainide administration at the ER. Patient given IV metoprolol and diltiazem at the ER. Patient converted to sinus rhythm, heart rate controlled. Troponin levels normal Evaluated by cardiology service Recommend to stop usual metoprolol succinate and changed to diltiazem CD 120 mg p.o. daily Also started on flecainide 50 mg twice a day Continue Eliquis twice a day Follow-up with cardiology service in 1 week plan of care discussed with patient all questions answered She is understanding, agreeable, comfortable with the plan of care Discharge Exam GENERAL: Comfortable, pleasant, obese, looks younger than stated age, no respiratory distress SKIN: Normal color, warm HEENT: [place] palpebral conjunctivae, no ptosis, dry buccal mucosa NECK : Supple, short neck, no tenderness CHEST : CTA, no tenderness HEART : RRR, no obvious murmurs ABDOMEN: Some distention, nontender EXTREMITIES : No LE swelling/tenderness, no other conspicuous deformities noted NEUROLOGIC : Coherent, no facial asymmetry, no other gross focality Updated Medication List Medication Instructions Recorded Confirmed Type omeprazole 20 mg capsule,delayed 20 mg PO QAM 03/09/21 06/15/22 History release apixaban 5 mg tablet 5 mg PO BID 06/13/22 06/15/22 History baclofen 10 mg tablet 10 mg PO BID 06/13/22 06/15/22 History dicyclomine 10 mg capsule 10 mg PO BID 06/13/22 06/15/22 History erenumab-aooe 70 mg/mL 70 mg subcut MONTHLY 06/13/22 06/15/22 History subcutaneous auto-injector (Aimovig Autoinjector) famotidine 20 mg tablet 20 mg PO BID 06/13/22 06/15/22 History flecainide 100 mg tablet 200 mg PO ONCE PRN tachycardia; HR 06/13/22 06/15/22 Rx >150bpm #30 tabs ondansetron 4 mg disintegrating 4 mg PO Q8H PRN Nausea 06/13/22 06/15/22 History tablet sucralfate 1 gram tablet 1 g PO TID 06/13/22 06/15/22 History tizanidine 4 mg tablet 4 mg PO Q6H PRN Tension Headache 06/13/22 06/15/22 History diltiazem HCl 120 mg 120 mg PO QAM 30 days #30 caps 06/15/22 Rx capsule,extended release 24 hr (Cardizem CD) flecainide 50 mg tablet 50 mg PO Q12 30 days #60 tabs 06/15/22 Rx Hospital Stay Data Consultations 06/15/22 02:09 ED Decision to Admit Stat 06/15/22 07:55 Consult Cardiology Routine Pending Results Patient Have Any Pending Studies at Discharge: No Discharge Instructions Given to Patient (Per Discharging Provider) PLEASE REFER TO YOUR NEW MEDICATION LIST AND FOLLOW INSTRUCTIONS CAREFULLY. YOUR NEW MEDICATIONS INCLUDE: Flecainide 50 mg twice a day-start this evening, 06/15/2022 Diltiazem CD 120 mg daily -start tomorrow morning, 06/16/2022 Please stop taking metoprolol succinate. PLEASE CALL YOUR PRIMARY CARE PHYSICIAN OR RETURN TO THE ER IF WITH WORSENING OF SYMPTOMS, INCLUDING Palpitations, chest pain, dizziness, shortness of breath, weakness, etc. FOLLOW UP WITH PRIMARY CARE PHYSICIAN IN 1 WEEK. FOLLOW-UP WITH PROPERTY LOSS INSURANCE CLAIM ADJUSTER SCHEDULED. Total Time Total Time Spent Total Time Spent (In Minutes): > 30 minutes
[2022-06-15] MEDS ORDERED: FLECAINIDE ACETATE 100 MG TABLET PO SCH (21:00)
[2022-06-16] MEDS ORDERED: dilTIAZem HCL 120 MG CAPCR PO SCH (09:00)
[2022-06-16] MEDS ORDERED: ASPIRIN 81 MG ECTAB PO SCH (09:00)
== END 2022-06-15 15:19 | disposition home or self-care (01) ==
LOC: ED 23:58 → EDINP 23:58 → SUATTDRO 06-15 05:09 → EDINP 06-15 07:51

== ENCOUNTER 2023-04-09 14:19 | Observation (INO) ==
[2023-04-09 15:10] LABS: Basophils # (auto) 0.03 K/uL (0.00-0.20); Basophils % (auto) 0.3 %; Eosinophils # (auto) 0.02 K/uL (0.00-0.50); Eosinophils % (auto) 0.2 %; Hemoglobin 12.1 g/dl (12.0-16.0); Immature Granulocytes # (auto) 0.03 K/uL (0.01-0.20); Immature Granulocytes % (auto) 0.3 %; Lymphocytes # (auto) 3.56 K/uL (1.20-3.40); Lymphocytes % (auto) 40.7 %; Mean Corpuscular Hemoglobin 29.7 pg (25.0-34.0); Mean Corpuscular Hgb Conc 33.6 g/dL (32.0-36.0); Mean Corpuscular Volume 88.5 fL (80.0-100.0); Mean Platelet Volume 8.6 fL (9.4-12.4); Monocytes # (auto) 0.51 K/uL (0.11-0.59); Monocytes % (auto) 5.8 %; Neutrophils # (auto) 4.59 K/uL (1.40-6.50); Neutrophils % (auto) 52.7 %; Platelet Count 199 K/uL (130-400); RDW Coefficient of Variation 12.4 % (11.5-14.5); RDW Standard Deviation 39.5 fL (36.4-46.3); Red Blood Count 4.07 M/uL (4.20-5.40); White Blood Count 8.74 K/ul (4.8-10.8)
[2023-04-09] MEDS: SODIUM CHLORIDE 0.9% 1,000 ML IV ONE (15:11)
[2023-04-09 15:16] LABS: Anion Gap 6 (3-11); BUN Creatinine Ratio 16.2 (10-20); Blood Urea Nitrogen 18 mg/dl (6-23); Calcium 8.1 mg/dl (8.6-10.3); Carbon Dioxide 26 mmol/L (21-32); Chloride 108 mmol/L (98-107); Creatinine Clr Calc Pharmacy 71.5 ml/min; Est GFR (African American) 67.5 ml/min; Est GFR (Non-African American) 58.3 ml/min; Glucose 124 mg/dl (70-99(Fasting)); Magnesium 1.8 mg/dl (1.7-2.4); Potassium 2.6 mmol/L (3.5-5.1); Sodium 140 mmol/L (136-145)
[2023-04-09 15:19] LABS: iSTAT Creatinine 1.2 mg/dl (0.6-1.3); iSTAT Hemoglobin 12.2 g/dl (12.0-16.0); iSTAT Ionized Calcium 1.12 mmol/l (1.12-1.32); iSTAT Potassium 2.4 mmol/L (3.3-5.0)
--- NOTE | 2023-04-09 15:20 | XRay Report ---
SINGLE VIEW CHEST CLINICAL HISTORY: Fall. FINDINGS: An AP, portable, upright chest radiograph is compared to study dated 06/15/2022 and correlate d with chest CT dated 04/29/2014. The cardiomediastinal silhouette is unremarkable. The lungs and pleu ral spaces are clear. No pneumothorax is seen. The bony thorax is grossly intact. IMPRESSION: No active disease in the chest. ACT 112: Negative or not required by law. Electronically signed by: John Dyer M.D. 04/09/2023 3:18 PM
--- NOTE | 2023-04-09 15:20 | XRay Report ---
XR knee LT 3V CLINICAL HISTORY: fall TECHNIQUE: 3 views of the left knee were obtained. Comparison: Comparison is made to left knee radiographs 06/11/2007 FINDINGS: There is no evidence of an acute fracture. Joint spaces are well-preserved. No joint effusion is seen . A fabella is incidentally seen. IMPRESSION: No evidence of acute osseous injury. ACT 112: Negative or not required by law. Electronically signed by: Matthew Lincoln M.D. 04/09/2023 3:19 PM
[2023-04-09 15:22] LABS: Troponin I High Sensitivity < 2.3 pg/ml (0-14)
[2023-04-09 15:39] LABS: INR 1.2 (0.9-1.1); Partial Thromboplastin Ratio 0.8; Partial Thromboplastin Time 23 Seconds (21-31); Prothrombin Time 12.6 Seconds (9.0-12.0)
--- NOTE | 2023-04-09 16:02 | Electrocardiogram Report ---
Test Reason : Blood Pressure : / mmHG Vent. Rate : 053 BPM Atrial Rate : 053 BPM P-R Int : 114 ms QRS Dur : 092 ms QT Int : 436 ms P-R-T Axes : 044 -02 -24 degrees QTc Int : 409 ms Sinus bradycardia T wave abnormality, consider anterolateral ischemia Abnormal ECG When compared with ECG of 15-JUN-2022 06:04, T wave inversion now evident in Anterolateral leads QT has shortened Confirmed by Riki Cornejo ([id number]) on 04/09/2023 4:02:18 PM Referred By: REFERRED SELF Confirmed By:Riki Cornejo
[2023-04-09] MEDS: POTASSIUM CHLORIDE / WTR 10 MEQ/100 ML PLCT IV SCH ×2 (16:03→18:47)
--- NOTE | 2023-04-09 16:06 | CT Scan Report ---
CT OF THE HEAD WITHOUT CONTRAST CLINICAL HISTORY: fall COMPARISON STUDY: No previous studies for comparison. TECHNIQUE: Helical axial images of the head were obtained without IV contrast. Automated exposure con trol was utilized for the study. A dose lowering technique was utilized adhering to the principles o f ALARA. FINDINGS: No acute intracranial hemorrhage, midline shift or mass effect is present. The ventricular system is unremarkable. The basal cisterns are patent. No extra-axial collections are present. There are no findings to suggest acute dural sinus thrombosis or acute territorial infarct. No significant calvarial abnormalities are present. Visualized portions of the sinuses and mastoid air cells are [place] ar. IMPRESSION: 1. No acute intracranial findings. 2. No calvarial fracture. ACT 112: Negative or not required by law. Electronically signed by: Tr Izquierdo M.D. 04/09/2023 4:04 PM
--- NOTE | 2023-04-09 16:10 | CT Scan Report ---
CT OF THE CERVICAL SPINE WITHOUT CONTRAST CLINICAL HISTORY: fall COMPARISON STUDY: Cervical spine radiograph May 22, 2014. Chest CT April 29, 2014. TECHNIQUE: Helical axial images of the cervical spine were obtained without IV contrast. Sagittal a nd coronal reconstructions were viewed. Automated exposure control was utilized for the study. A do se lowering technique was utilized adhering to the principles of ALARA. FINDINGS: There is straightening of the cervical lordosis. Vertebral body heights are maintained. The re is no cervical spine fracture. There is moderate disc space narrowing and osteophytosis at C5-C6. There is moderate multilevel facet arthrosis. The craniocervical junction is intact. Although subopti rick assessed by CT, the thyroid gland appears heterogeneous with mild adjacent edema. IMPRESSION: 1. No acute cervical spine fracture or subluxation. 2. Heterogeneous thyroid gland with mild adjacent edema. The CT appearance is nonspecific. The findin gs could be correlated with thyroid function tests. ACT 112: Negative or not required by law. Electronically signed by: Tr Izquierdo M.D. 04/09/2023 4:08 PM
--- NOTE | 2023-04-09 16:15 | CT Scan Report ---
CT facial bones wo con CLINICAL HISTORY: fall TECHNIQUE: Multidetector row helical CT of the maxillofacial bones was performed without administrati on of intravenous contrast, and processed with bone and soft tissue algorithms. Coronal and sagittal reformations were obtained. Automated dose lowering techniques and/or adjustment according to patient size were utilized for this exam. Comparison: None available at the time of this dictation. FINDINGS: Nasal bones are normal. The mandible is intact. The temporomandibular joints are anatomically aligned . Pterygoid plates are intact. Zygomatic arches are intact. The globes are normal and symmetric, without proptosis, obvious disruption or lens dislocation. Ther e is no orbital radiopaque foreign body. The orbital justice are intact. The retrobulbar fat is without evidence of disruption. Extraocular muscles are normal and symmetric. Optic nerve sheath complexes are normal in course and caliber. Imaged portions of the paranasal sinuses and mastoid air cells are clear. A tiny focus of gas in the left zygomatic soft tissues is nonspecific. IMPRESSION: No acute facial fracture. ACT 112: Negative or not required by law. Electronically signed by: Matthew Lincoln M.D. 04/09/2023 4:13 PM
[2023-04-09] MEDS: POTASSIUM CHLORIDE CRTAB 20 MEQ TABCR PO STA ×2 (17:11→23:19)
--- NOTE | 2023-04-09 18:56 | History & Physical Report ---
Date of Service April 09, 2023 Assessment & Plan (1) Syncope: (2) Facial abrasion: (3) Acute hypokalemia: Plan Pt is a 48yoF with PMHx significant for atrial fibrillation s/p ablation, atrial flutter currently on verapamil and apixaban presenting after a syncopal episode at work today. States that she has been feeling nauseated and dizzy daily for some time now with noted palpitations. Has an apple watch and it has been noting atrial fibrillation with HR as high as the 150s. Currently bradycardic without intervention other than her daily verapamil 180mg this morning. Syncope Hx of atrial fibrillation/atrial flutter Sinus bradycardia Likely in setting of abnormal heart conduction EKG noting sinus bradycardia Echo pending, telemetry monitoring UA pending Head CT with no appreciable cause brain MRI pending Cardiology consulted, appreciate further recs Pt took her medications this morning -Will hold home verapamil 180mg at this time given noted bradycardia -Took apixaban 5mg this AM, will hold and transition to IV heparin -?tachy david syndrome?-pacer pads present and available Pt NPO until seen by cardiology Consider orthostatic vitals in the AM- pt received fluid bolus in the ED Continue to monitor on telemetry Facial abrasions Fall Pt with noted bruising on face on lower lip and left side of forehead Had syncopal episode and fell while on Eliquis Head CT with no acute bleed Imaging of the face, neck, knee,chest also with no noted fractures Pain control as needed Hypokalemia Potassium low at 2.6 on admission Replete as needed Holding other home po medications while NPO. Resume as able CODE STATUS: Full code DVT prophylaxis: On heparin Diet: currently NPO until evaluated by cardiology Dispo: Home once medically stable History of Present Illness Chief Complaint: syncope Primary Care Provider: Jacques Badillo DO Pt is a 48yoF with PMHx significant for atrial fibrillation s/p ablation, atrial flutter currently on verapamil and apixaban presenting after a syncopal episode at work today. States that she has been feeling nauseated and dizzy daily for some time now with noted palpitations. Has an apple watch and it has been noting atrial fibrillation with HR as high as the 150s. Currently bradycardic. States that she was at work today and just not feeling well. Notes that for the past few weeks she has been feeling nauseated and having palpitations with dizziness. States that she has been getting dizzy and nauseated whenever she stands up. States that she got up from her seat to use the bathroom at work before falling and blacking out. States that she has an apple watch that has been noting occasional runs of "atrial fibrillation" with HR as high as 150s. Notes that she last noted this high HR this morning. She notes that she has been feeling the fluttering in her chest. Surprised that she was in sinus rhythm and with noted bradycardia while on the monitor in the hospital. 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 Notes she is s/p ablation as well. States that she has just been "pushing through". States she took her verapamil and Eliquis this morning before arrival. Denies alcohol or excessive caffeine use. Denies a family Hx of cardiac disease. States she has been drinking water to try to stay hydrated. Allergies Allergy/AdvReac Type Severity Reaction Status Date / Time morphine Allergy Severe N/V,HEADACHE,CANT Verified 04/09/23 17:01 BREATHE acetaminophen AdvReac Mild Nausea/Vomi Verified 04/09/23 17:01 ting Home Medications Medication Instructions Recorded Confirmed Type omeprazole 20 mg capsule,delayed 20 mg PO AMHS AM 03/09/21 04/09/23 History release apixaban 5 mg tablet 5 mg PO AMHS 06/13/22 04/09/23 History famotidine 20 mg tablet 20 mg PO BID 06/13/22 04/09/23 History ondansetron 4 mg disintegrating 4 mg PO Q8H PRN Nausea 06/13/22 04/09/23 History tablet tizanidine 4 mg tablet 4 mg PO Q6H PRN Muscle Spasm 06/13/22 04/09/23 History duloxetine 30 mg capsule,delayed 30 mg PO QAM 04/09/23 04/09/23 History release ketoconazole 2 % topical cream 1 applic topical UD 04/09/23 04/09/23 History verapamil 180 mg 24 hr 180 mg PO QAM 04/09/23 04/09/23 History capsule,extended release Past Med/Surg History Medical History Atrial fibrillation with RVR Atrial fib/flutter, transient Pancreatitis, acute resolved over night Obesity Depression Surgical History S/P ablation of atrial fibrillation H/O: hysterectomy Family History Other Cancer Depression Social History Smoking Status: Current every day smoker Tobacco Type: E-cigarettes / Vaping Hx Alcohol Use: Yes Alcohol Intake Frequency Comment: 3 drinks 2 times a month Hx Substance Use: No Preferred Language: Macanese Communication Ability: Effective Beliefs That Will Affect Care: Spiritual Current Living Situation: Spouse and Family Feels Safe at Home: Yes Assistive Devices: None Review of Systems Review of Systems: All systems reviewed & are unremarkable except as noted in Subjective Physical Exam Physical Exam: General: Alert, oriented. No acute distress Skin: facial bruising Psych: Appropriate mood and affect Neuro: No gross deficits HEENT: NC, facial bruising Chest: Nontender to palpation. CV: RRR, Normal s1, s2. No murmurs appreciated Resp: Breath sounds clear bilaterally, no increased effort of breathing. Abdomen: Soft, nontender, nondistended. No guarding. No organomegaly appreciated. Extremities: No edema in lower extremities bilaterally. Results & Data Results & Data Vital Signs (Past 12 Hours) Vital Signs Temp Pulse Resp BP Pulse Ox O2 Del Method 04/09/23 16:30 64 14 100 04/09/23 16:30 112/76 04/09/23 16:06 67 12 100 04/09/23 16:06 119/78 04/09/23 15:30 64 16 100 04/09/23 15:30 111/74 04/09/23 15:11 107/66 04/09/23 15:11 59 L 17 98 04/09/23 15:00 60 21 99 04/09/23 14:30 61 21 99 04/09/23 14:28 36.6 C 58 L 17 116/68 94 Room Air 04/09/23 14:26 98 04/09/23 14:26 116/68 Diagnostic Findings Cervical Spine CT 04/09/23 14:54 CT OF THE CERVICAL SPINE WITHOUT CONTRAST CLINICAL HISTORY: fall COMPARISON STUDY: Cervical spine radiograph May 22, 2014. Chest CT April 29, 2014. TECHNIQUE: Helical axial images of the cervical spine were obtained without IV contrast. Sagittal and coronal reconstructions were viewed. Automated exposure control was utilized for the study. A dose lowering technique was utilized adhering to the principles of ALARA. FINDINGS: There is straightening of the cervical lordosis. Vertebral body heights are maintained. There is no cervical spine fracture. There is moderate disc space narrowing and osteophytosis at C5-C6. There is moderate multilevel facet arthrosis. The craniocervical junction is intact. Although suboptimally assessed by CT, the thyroid gland appears heterogeneous with mild adjacent edema. IMPRESSION: 1. No acute cervical spine fracture or subluxation. 2. Heterogeneous thyroid gland with mild adjacent edema. The CT appearance is nonspecific. The findings could be correlated with thyroid function tests. ACT 112: Negative or not required by law. Electronically signed by: Tr Izquierdo M.D. 04/09/2023 4:08 PM Chest X-Ray 04/09/23 14:54 SINGLE VIEW CHEST CLINICAL HISTORY: Fall. FINDINGS: An AP, portable, upright chest radiograph is compared to study dated 06/15/2022 and correlated with chest CT dated 04/29/2014. The cardiomediastinal silhouette is unremarkable. The lungs and pleural spaces are clear. No pneumothorax is seen. The bony thorax is grossly intact. IMPRESSION: No active disease in the chest. ACT 112: Negative or not required by law. Electronically signed by: John Dyer M.D. 04/09/2023 3:[address] 04/09/23 14:54 CT facial bones wo con CLINICAL HISTORY: fall TECHNIQUE: Multidetector row helical CT of the maxillofacial bones was performed without administration of intravenous contrast, and processed with bone and soft tissue algorithms. Coronal and sagittal reformations were obtained. Automated dose lowering techniques and/or adjustment according to patient size were utilized for this exam. Comparison: None available at the time of this dictation. FINDINGS: Nasal bones are normal. The mandible is intact. The temporomandibular joints are anatomically aligned. Pterygoid plates are intact. Zygomatic arches are intact. The globes are normal and symmetric, without proptosis, obvious disruption or lens dislocation. There is no orbital radiopaque foreign body. The orbital justice are intact. The retrobulbar fat is without evidence of disruption. Extraocular muscles are normal and symmetric. Optic nerve sheath complexes are normal in course and caliber. Imaged portions of the paranasal sinuses and mastoid air cells are clear. A tiny focus of gas in the left zygomatic soft tissues is nonspecific. IMPRESSION: No acute facial fracture. ACT 112: Negative or not required by law. Electronically signed by: Matthew Lincoln M.D. 04/09/2023 4:[address] 04/09/23 14:54 CT OF THE HEAD WITHOUT CONTRAST CLINICAL HISTORY: fall COMPARISON STUDY: No previous studies for comparison. TECHNIQUE: Helical axial images of the head were obtained without IV contrast. Automated exposure control was utilized for the study. A dose lowering technique was utilized adhering to the principles of ALARA. FINDINGS: No acute intracranial hemorrhage, midline shift or mass effect is present. The ventricular system is unremarkable. The basal cisterns are patent. No extra-axial collections are present. There are no findings to suggest acute dural sinus thrombosis or acute territorial infarct. No significant calvarial abnormalities are present. Visualized portions of the sinuses and mastoid air cells are clear. IMPRESSION: 1. No acute intracranial findings. 2. No calvarial fracture. ACT 112: Negative or not required by law. Electronically signed by: Tr Izquierdo M.D. 04/09/2023 4:04 PM Knee X-Ray 04/09/23 14:54 XR knee LT 3V CLINICAL HISTORY: fall TECHNIQUE: 3 views of the left knee were obtained. Comparison: Comparison is made to left knee radiographs 06/11/2007 FINDINGS: There is no evidence of an acute fracture. Joint spaces are well-preserved. No joint effusion is seen. A fabella is incidentally seen. IMPRESSION: No evidence of acute osseous injury. ACT 112: Negative or not required by law. Electronically signed by: Matthew Lincoln M.D. 04/09/2023 3:19 PM Code Status & VTE Plan VTE Prophylaxis Plan VTE Prophylaxis will be ordered: Yes
[2023-04-09] MEDS ORDERED: POLYETHYLENE (MIRALAX) 17 GM PACK PO PRN (19:35)
[2023-04-09] MEDS ORDERED: ACETAMINOPHEN 325 MG TAB PO PRN (19:35)
[2023-04-09] MEDS ORDERED: ONDANSETRON INJ 2 MG/ML 2 ML VIAL IV PRN (19:35)
--- NOTE | 2023-04-09 19:55 | Emergency Department Note ---
History of Present Illness General Chief Complaint: Syncope Stated Complaint: WEAKNESS, HEADACE, DIARRHEA Time Seen by Provider: 04/09/23 14:36 History of Present Illness Provider Complaint: + palpitations Onset (ago): 2 day(s) Duration: + Intermittent Context: + occurred during rest Arrhythmia history: + atrial fibrillation and + on anti-coagulants (Eliquis) Associated symptoms: + syncope (Occurred 1 hour ago. Patient felt flushed sweaty and hot prior to having syncopal episode. Patient did hit her head. Patient is reporting head and facial pain.); no chest pain, no shortness of breath, no vomiting, no anxiety, no cough or no paresthesias Home Medications Medication Instructions Recorded Confirmed Type omeprazole 20 mg capsule,delayed 20 mg PO [facility] AM 03/09/21 04/09/23 History release apixaban 5 mg tablet 5 mg PO [facility] 06/13/22 04/09/23 History famotidine 20 mg tablet 20 mg PO BID 06/13/22 04/09/23 History ondansetron 4 mg disintegrating 4 mg PO Q8H PRN Nausea 06/13/22 04/09/23 History tablet tizanidine 4 mg tablet 4 mg PO Q6H PRN Muscle Spasm 06/13/22 04/09/23 History duloxetine 30 mg capsule,delayed 30 mg PO QAM 04/09/23 04/09/23 History release ketoconazole 2 % topical cream 1 applic topical UD 04/09/23 04/09/23 History verapamil 180 mg 24 hr 180 mg PO QAM 04/09/23 04/09/23 History capsule,extended release Allergies Allergy/AdvReac Type Severity Reaction Status Date / Time morphine Allergy Severe N/V,HEADACHE,CANT Verified 04/09/23 17:01 BREATHE acetaminophen AdvReac Mild Nausea/Vomi Verified 04/09/23 17:01 ting Past Med/Surg History Medical History Atrial fibrillation with RVR Atrial fib/flutter, transient Pancreatitis, acute resolved over night Obesity Depression Surgical History S/P ablation of atrial fibrillation H/O: hysterectomy Family History Other Cancer Depression Social History Smoking Status: Current every day smoker Tobacco Type: E-cigarettes / Vaping Hx Alcohol Use: Yes Alcohol Intake Frequency Comment: 3 drinks 2 times a month Hx Substance Use: No Preferred Language: [place] Communication Ability: Effective Beliefs That Will Affect Care: Spiritual Current Living Situation: Spouse and Family Feels Safe at Home: Yes Assistive Devices: None Physical Exam 2 Vital Signs: Vital Signs - 24 hr 04/09/23 14:26 04/09/23 14:26 04/09/23 14:28 Temperature 36.6 C Temperature Source Oral Pulse Rate 58 L Pulse Rate from Sp O2 Sensor 58 L Respiratory Rate 17 Respiratory Effort / Characteristics Non-Labored Sponta neous Respiratory Depth Normal Respiratory Patter n Regular Blood Pressure 116/68 116/68 Blood Pressure Giselle n 82 84 Blood Pressure Pos ition Semi-fowlers Pulse Oximetry 98 94 Oxygen Delivery Me thod Room Air Sepsis Recent Feve r Within 48 Hours No Sepsis New/Unexpla ined Change in Men osbaldo Status N/A Sepsis Action Take n by Nursing No Action Required 04/09/23 14:30 04/09/23 15:00 04/09/23 15:11 Temperature Temperature Source Pulse Rate 61 60 59 L Pulse Rate from Sp O2 Sensor 61 62 59 L Respiratory Rate 21 21 17 Respiratory Effort / Characteristics Respiratory Depth Respiratory Patter n Blood Pressure Blood Pressure Giselle n Blood Pressure Pos ition Pulse Oximetry 99 99 98 Oxygen Delivery Me thod Sepsis Recent Feve r Within 48 Hours Sepsis New/Unexpla ined Change in Men osbaldo Status Sepsis Action Take n by Nursing 04/09/23 15:11 04/09/23 15:30 04/09/23 15:30 Temperature Temperature Source Pulse Rate 64 Pulse Rate from Sp O2 Sensor 64 Respiratory Rate 16 Respiratory Effort / Characteristics Respiratory Depth Respiratory Patter n Blood Pressure 107/66 111/74 Blood Pressure Giselle n 85 87 Blood Pressure Pos ition Pulse Oximetry 100 Oxygen Delivery Me thod Sepsis Recent Feve r Within 48 Hours Sepsis New/Unexpla ined Change in Men osbaldo Status Sepsis Action Take n by Nursing 04/09/23 16:06 04/09/23 16:06 04/09/23 16:30 Temperature Temperature Source Pulse Rate 67 Pulse Rate from Sp O2 Sensor Respiratory Rate 12 Respiratory Effort / Characteristics Respiratory Depth Respiratory Patter n Blood Pressure 119/78 112/76 Blood Pressure Giselle n 83 84 Blood Pressure Pos ition Pulse Oximetry 100 Oxygen Delivery Me thod Sepsis Recent Feve r Within 48 Hours Sepsis New/Unexpla ined Change in Men osbaldo Status Sepsis Action Take n by Nursing 04/09/23 16:30 Temperature Temperature Source Pulse Rate 64 Pulse Rate from Sp O2 Sensor 62 Respiratory Rate 14 Respiratory Effort / Characteristics Respiratory Depth Respiratory Patter n Blood Pressure Blood Pressure Giselle n Blood Pressure Pos ition Pulse Oximetry 100 Oxygen Delivery Me thod Sepsis Recent Feve r Within 48 Hours Sepsis New/Unexpla ined Change in Men osbaldo Status Sepsis Action Take n by Nursing Physical Exam: Physical Exam HENT: Exam performed. -Head: Normocephalic and contusion to the left forehead. No facial instability. -Right Ear: External ear normal. No mastoid erythema -Left Ear: External ear normal. No mastoid erythema -Mouth/Throat: The oropharynx is clear and moist. No trismus in the jaw. No dental abscesses or uvula swelling. No oropharyngeal exudate or tonsillar abscesses. EYES: Conjunctivae and EOM are normal. Pupils are equal, round, and reactive to light. Right eye exhibits no discharge. Left eye exhibits no discharge. No scleral icterus. NECK: Patient in c-collar. No C spine tenderness. CV: Normal rate, regular rhythm, normal heart sounds and intact distal pulses. There is no peripheral edema. Palpable radial pulses bue. PULM/CHEST: Effort normal and breath sounds normal. No respiratory distress. No stridor. She has no wheezes. She has no rales. ABD: The abdomen is soft. She has no distension. No mass is present. There is no tenderness. There is no rebound, no guarding, no Garcia's sign and no tenderness at McBurney's point. Rovsig negative MUSC/SKEL: Pelvis stable. Abrasion over the left knee. Pain on palpation of the left knee. NEURO: Motor and sensation grossly intact. Course Course 1436: The patient was evaluated in room B2. A complete history and physical exam was performed Cardiac monitoring: An order was placed for continuous cardiac monitoring. The monitor shows a rate of 50 with sinus rhythm interpreted by me 1630: Vital signs stable. Imaging shows no acute traumatic injury. Patient has hypokalemia 2.6. Potassium repletion started the emergency department. [facility]. Administered Medications Potassium Chloride (K Dandre / Wtr) 10 meq in 100 mls @ 100 mls/hr IV Q1H CUBA Stop: 04/09/23 19:59 Last Admin: 04/09/23 18:47 Dose: 100 mls/hr Documented By: HS Discontinued Medications Sodium Chloride (Nss) 1,000 mls @ 999 mls/hr IV .Q1H1M ONE Stop: 04/09/23 15:53 Last Infusion: 04/09/23 16:12 Dose: Infused Documented By: Admin: 04/09/23 15:11 Dose: 999 mls/hr Documented By: HS Potassium Chloride (K Dandre / Wtr) 10 meq in 100 mls @ 100 mls/hr IV Q1H CUBA Stop: 04/09/23 17:59 Last Infusion: 04/09/23 18:13 Dose: Infused Documented By: Admin: 04/09/23 17:11 Dose: 100 mls/hr Documented By: Infusion: 04/09/23 17:03 Dose: Infused Documented By: Admin: 04/09/23 16:03 Dose: 100 mls/hr Documented By: HS Potassium Chloride (Potassium Chloride Crtab 20 Meq Tabcr) 40 meq PO NOW STA Stop: 04/09/23 16:58 Last Admin: 04/09/23 17:11 Dose: 40 meq Documented By: HS Medical Decision Making Laboratory Data Attestation: I reviewed the patient's lab results. 04/09/23 14:41 04/09/23 14:41 Lab Results 04/09/23 04/09/23 Range/Units 14:41 15:05 WBC 8.74 (4.8-10.8) K/ul RBC 4.07 L (4.20-5.40) M/uL Hgb 12.1 (12.0-16.0) g/dl POC Hgb 12.2 (12.0-16.0) g/dl Hct 36.0 L (37.0-47.0) % POC Hct 36 L (37-47) % MCV 88.5 (80.0-100.0) fL MCH 29.7 (25.0-34.0) pg MCHC 33.6 (32.0-36.0) g/dL RDW Std Deviation 39.5 (36.4-46.3) fL RDW Coeff of Amarilys 12.4 (11.5-14.5) % Plt Count 199 (130-400) K/uL MPV 8.6 L (9.4-12.4) fL Immature Gran % (Auto) 0.3 % Neut % (Auto) 52.7 % Lymph % (Auto) 40.7 % Kay % (Auto) 5.8 % Eos % (Auto) 0.2 % Baso % (Auto) 0.3 % Neut # (Auto) 4.59 (1.40-6.50) K/uL Lymph # (Auto) 3.56 H (1.20-3.40) K/uL Kay # (Auto) 0.51 (0.11-0.59) K/uL Eos # (Auto) 0.02 (0.00-0.50) K/uL Baso # (Auto) 0.03 (0.00-0.20) K/uL Immature Gran # (Auto) 0.03 (0.01-0.20) K/uL PT 12.6 H (9.0-12.0) Seconds INR 1.2 H (0.9-1.1) APTT 23 (21-31) Seconds PTT Ratio 0.8 POC Sodium 142 (135-144) mmol/L Sodium 140 (136-145) mmol/L POC Potassium 2.4 L* (3.3-5.0) mmol/L Potassium 2.6 L (3.5-5.1) mmol/L POC Chloride 102 (101-112) mmol/L Chloride 108 H (98-107) mmol/L Carbon Dioxide 26 (21-32) mmol/L POC Total CO2 25 (24-31) mmol/L Anion Gap 6 (3-11) POC Anion Gap 19.0 (16-25) mmol/L POC BUN 16 (7-18) mg/dl BUN 18 (6-23) mg/dl Creatinine 1.11 (0.6-1.2) mg/dl POC Creatinine 1.2 (0.6-1.3) mg/dl Est Cr Clr Drug Dosing 71.5 ml/min Est GFR ( Amer) 67.5 ml/min Est GFR (Non-Af Amer) 58.3 ml/min BUN/Creatinine Ratio 16.2 (10-20) Glucose 124 H (70-99(Fasting)) mg/dl POC Glucose (other) 129 H (70-99) mg/dl Calcium 8.1 L (8.6-10.3) mg/dl POC Ioniz Calcium Cira 1.12 (1.12-1.32) mmol/l Magnesium 1.8 (1.7-2.4) mg/dl Troponin I High Sens < 2.3 (0-14) pg/ml Imaging Data Attestation: I personally reviewed and interpreted this imaging study as follows: My Impression: Chest x-ray negative. Airway clear. No pneumothorax. No consolidation. No cardiomegaly or cephalization.. No free air under the diaphragm. No fractures of the skeletal structures. Radiologist's Impression: Cervical Spine CT 04/09/23 14:54 CT OF THE CERVICAL SPINE WITHOUT CONTRAST CLINICAL HISTORY: fall COMPARISON STUDY: Cervical spine radiograph May 22, 2014. Chest CT April 29, 2014. TECHNIQUE: Helical axial images of the cervical spine were obtained without IV contrast. Sagittal and coronal reconstructions were viewed. Automated exposure control was utilized for the study. A dose lowering technique was utilized adhering to the principles of ALARA. FINDINGS: There is straightening of the cervical lordosis. Vertebral body heights are maintained. There is no cervical spine fracture. There is moderate disc space narrowing and osteophytosis at C5-C6. There is moderate multilevel facet arthrosis. The craniocervical junction is intact. Although suboptimally assessed by CT, the thyroid gland appears heterogeneous with mild adjacent edema. IMPRESSION: 1. No acute cervical spine fracture or subluxation. 2. Heterogeneous thyroid gland with mild adjacent edema. The CT appearance is nonspecific. The findings could be correlated with thyroid function tests. ACT 112: Negative or not required by law. Electronically signed by: Tr Izquierdo M.D. 04/09/2023 4:08 PM Chest X-Ray 04/09/23 14:54 SINGLE VIEW CHEST CLINICAL HISTORY: Fall. FINDINGS: An AP, portable, upright chest radiograph is compared to study dated 06/15/2022 and correlated with chest CT dated 04/29/2014. The cardiomediastinal silhouette is unremarkable. The lungs and pleural spaces are clear. No pneumothorax is seen. The bony thorax is grossly intact. IMPRESSION: No active disease in the chest. ACT 112: Negative or not required by law. Electronically signed by: John Dyer M.D. 04/09/2023 3:[address] 04/09/23 14:54 CT facial bones wo con CLINICAL HISTORY: fall TECHNIQUE: Multidetector row helical CT of the maxillofacial bones was performed without administration of intravenous contrast, and processed with bone and soft tissue algorithms. Coronal and sagittal reformations were obtained. Automated dose lowering techniques and/or adjustment according to patient size were utilized for this exam. Comparison: None available at the time of this dictation. FINDINGS: Nasal bones are normal. The mandible is intact. The temporomandibular joints are anatomically aligned. Pterygoid plates are intact. Zygomatic arches are intact. The globes are normal and symmetric, without proptosis, obvious disruption or lens dislocation. There is no orbital radiopaque foreign body. The orbital justice are intact. The retrobulbar fat is without evidence of disruption. Extraocular muscles are normal and symmetric. Optic nerve sheath complexes are normal in course and caliber. Imaged portions of the paranasal sinuses and mastoid air cells are clear. A tiny focus of gas in the left zygomatic soft tissues is nonspecific. IMPRESSION: No acute facial fracture. ACT 112: Negative or not required by law. Electronically signed by: Matthew Lincoln M.D. 04/09/2023 4:[address] 04/09/23 14:54 CT OF THE HEAD WITHOUT CONTRAST CLINICAL HISTORY: fall COMPARISON STUDY: No previous studies for comparison. TECHNIQUE: Helical axial images of the head were obtained without IV contrast. Automated exposure control was utilized for the study. A dose lowering technique was utilized adhering to the principles of ALARA. FINDINGS: No acute intracranial hemorrhage, midline shift or mass effect is present. The ventricular system is unremarkable. The basal cisterns are patent. No extra-axial collections are present. There are no findings to suggest acute dural sinus thrombosis or acute territorial infarct. No significant calvarial abnormalities are present. Visualized portions of the sinuses and mastoid air cells are clear. IMPRESSION: 1. No acute intracranial findings. 2. No calvarial fracture. ACT 112: Negative or not required by law. Electronically signed by: Tr Izquierdo M.D. 04/09/2023 4:04 PM Knee X-Ray 04/09/23 14:54 XR knee LT 3V CLINICAL HISTORY: fall TECHNIQUE: 3 views of the left knee were obtained. Comparison: Comparison is made to left knee radiographs 06/11/2007 FINDINGS: There is no evidence of an acute fracture. Joint spaces are well-preserved. No joint effusion is seen. A fabella is incidentally seen. IMPRESSION: No evidence of acute osseous injury. ACT 112: Negative or not required by law. Electronically signed by: Matthew Lincoln M.D. 04/09/2023 3:19 PM ECG Data Attestation: I personally reviewed and interpreted this ECG as follows: Rate (beats per minute): 53 Rhythm: sinus bradycardia Findings: no ST depression, no ST elevation or no prolonged QT MDM Narrative 1436: The patient was evaluated in room B2. A complete history and physical exam was performed Cardiac monitoring: An order was placed for continuous cardiac monitoring. The monitor shows a rate of 50 with sinus rhythm interpreted by me 1630: Vital signs stable. Imaging shows no acute traumatic injury. Patient has hypokalemia 2.6. Potassium repletion started the emergency department. [facility] Impression & Plan Acute hypokalemia, Vasovagal syncope, CHI (closed head injury) Discharge Plan Visit Data Chief Complaint: Syncope Stated Complaint: WEAKNESS, HEADACE, DIARRHEA ED Provider: Dinesh Rivera Discharge Problem: Acute hypokalemia, Vasovagal syncope, CHI (closed head injury) Patient Disposition: Admitted As Inpatient Discharge Instructions Interventions: ED Discharge Assessment Last Done: 04/09/23 19:35
[2023-04-09] MEDS ORDERED: HYDROmorphone INJ 0.5 MG/0.5 ML SYR IV PRN (21:50)
[2023-04-09] MEDS: GADOBUTROL 65ML VIAL IV ONE (22:36)
[2023-04-09 23:02] LABS: Appearance Urine Clear (Clear); Bacteria Urine Automated 3+ (Negative); Bilirubin Urine Negative (Negative); Blood Urine Trace (Negative); Cast Urine Automated 0 /lpf (0-5); Color Urine Yellow; Glucose Urine UA Negative (Negative); Ketones Urine Negative (Negative); Leukocyte Esterase Urine 1+ (Negative); Nitrite Urine Negative (Negative); Protein Urine Negative (Negative); RBC Urine Automated 0-4 /hpf (0-4); Urobilinogen Urine Negative (Negative)
[2023-04-09] MEDS: HEPARIN SODIUM/DEXTROSE 25,000 UNITS/500 ML BAG IV SCH (23:16)
[2023-04-09] MEDS: Heparin IV Adult Wt-Based Low-Dose *NO* INITIAL Bolus Protocol IV STA (23:23)
--- NOTE | 2023-04-09 23:24 | Magnetic Resonance Report ---
Exam(s): MRI HEAD W/WO Contrast EXAM: MR Head Without and With Intravenous Contrast CLINICAL HISTORY: Reason for exam: syncope. TECHNIQUE: Magnetic resonance images of the head/brain without and with intravenous contrast in multiple planes. CONTRAST: 9.5 mL of Gadavist IV. COMPARISON: CT head from April 09, 2023 FINDINGS: Brain: Unremarkable. No mass. No hemorrhage. No acute infarct. No areas of abnormal contrast enhancement. Ventricles: Unremarkable. No ventriculomegaly. Bones/joints: Unremarkable. No acute fracture. Sinuses: Unremarkable as visualized. No acute sinusitis. Mastoid air cells: Unremarkable as visualized. No mastoid effusion. Orbits: Unremarkable as visualized. IMPRESSION: Normal head/brain MRI. Electronically signed by: Gavin Blue MD 04/09/23 23:23 PM
--- OUTSIDE RECORDS SUMMARY | 2023-04-09 23:34 | External Medical Summary | Summary of Care ---
Author Name Unknown Organization [facility] Address [address] [facility] [place] [address] Phone [phone] Care Team Providers Care Floral Arranger Name Role Phone Unavailable Primary Care Provider Unavailabl e Reason for Visit * Reason Onset Date Comments Medication Refill 02/15/2023 Encounter Details Date Type Department Care Team (Late st Contact Info) Description 02/15/2023 Refill Cardiology, [facility] [address] [facility] [place] [id number] Kassandra Coombs CRNP [address] [place] [address] Palpitations*; PAF (paroxysmal atrial fibrillation) ([facility]) Allergies Active Allergy Reactions Criticality Noted Date Comments Acetaminophen Nausea/vomiting Low 04/11/2016 Other reaction(s): Nausea/Vomiting Codeine High 09/21/2021 Difficulty breathing Morphine Neuro complications (Please comment) 11/09/2020 Pollen 06/20/2017 Venlafaxine 12/03/2012 Other reaction(s): Insomnia documented as of this encounter (statuses as of 02/15/2023) Medications Medication Sig Dispensed Refills Start Date End Date Status Ondansetron 4 MG Oral Tablet Disintegrating (Zofran) Place 1 Tablet on tongue every 8 hours as needed for Nausea. dissolve on tongue. 30 Tablet 1 03/07/2022 Active Aimovig 70 MG/ML Subcutaneous Solution Auto-injector (Erenumab-aooe)Rhea cations:Migraine with aura and with status migrainosus, not intractable Inject 2 mL under the skin Every Month. Dose increased to 2mL 1 mL 0 03/17/2022 Active Dicyclomine HCl 10 MG Oral Capsule (Bentyl) Take 1 Capsule by mouth 2 times a day as needed for Cramping. 180 Capsule 3 03/30/2022 Active Famotidine 20 MG Oral Tablet (Pepcid)Indications :Gastroesophageal reflux disease with esophagitis without hemorrhage Take 1 Tablet by mouth in the morning and 1 Tablet before bedtime. 180 Tablet 3 04/27/2022 Active tiZANidine HCl 4 MG Oral Tablet (Zanaflex)Indicatio ns:DDD (degenerative disc disease), cervical,Occipital neuralgia of left side,Anterolisthesi s of lumbar spine,Right lumbar radiculopathy Take 1 Tablet by mouth every 6 hours as needed for Muscle spasms. 30 Tablet 0 05/16/2022 Active Diclofenac Sodium 75 MG Oral Tablet Delayed Release (Voltaren)Indicatio ns:Cervical somatic dysfunction,Somatic dysfunction of spine, thoracic,Myofascial pain syndrome Take 1 Tablet by mouth in the morning and 1 Tablet before bedtime. 180 Tablet 3 09/12/2022 Active Apixaban 5 MG Oral Tablet (Eliquis) Take 1 Tablet by mouth in the morning and 1 Tablet before bedtime. 60 Tablet 11 01/23/2023 Active Omeprazole 20 MG Oral Capsule Delayed Release (PriLOSEC) TAKE 1 CAPSULE BY MOUTH IN THE MORNING AND AT BEDTIME 60 Capsule 5 01/25/2023 Active Verapamil HCl ER 180 MG Oral Capsule Extended Release 24 HourIndications:PAF (paroxysmal atrial fibrillation) (HCC),Palpitations Take 1 Capsule by mouth in the morning. 90 Capsule 3 02/15/2023 Active Verapamil HCl ER 180 MG Oral Capsule Extended Release 24 Hour Take 1 Capsule by mouth in the morning. 30 Capsule 11 01/23/2023 Discontinue d(Refill) documented as of this encounter (statuses as of 02/15/2023) Active Problems Problem Noted Date Diagnosed Date Atrial flutter 06/20/2022 Occipital neuralgia of left side 05/16/2022 DDD (degenerative disc disease), cervical 2022 Anterolisthesis of lumbar spine 05/16/2022 Right lumbar radiculopathy 05/16/2022 Migraine with aura and with status migrainosus, not intractable 03/08/2022 Paroxysmal atrial fibrillation 03/07/2022 Obesity, Class II, BMI 35-39.9, isolated (see ac tual BMI) 10/10/2019 Thumb tendonitis 08/01/2018 Major depressive disorder, recurrent episode, mo derate 03/18/2018 Overview: Counselor Gisela Britton. S/P cholecystectomy documented as of this encounter (statuses as of 02/15/2023) Resolved Problems Problem Noted Date Diagnosed Date Resolved Date Gallbladder polyp 05/02/2014 09/04/2018 Overview: 2018 CT normal GB 04/26 [facility] US 2 4mm polyp Acute suppurative otitis media 07/21/2013 03/18/2018 Trigger point of neck 10/02/20122018 Acute sinusitis 03/02/2011 04/15/2012 Acute bronchitis, complicated 01/31/2011 04/15/2012 NO KNOWN PROBLEMS 11/28/2006 03/18/2018 documented as of this encounter (statuses as of 02/15/2023) Immunizations Name Administration Dates Next Due COVID-19 mRNA, LNP-s, No Pre serve, 2-Dose Series (Pfizer) 10/22/2020,09/29/2020 Pneumococcal Polysaccharide PPV23 (Pneumovax) 12/17/2018 Seasonal Influenza Virus Vac cine, Unspecified Formulation 11/22/2011,11/28/2010 Seasonal Influenza, PF, 6 M & above, IM , (FluLaval or Fluzone) 12/12/2021,03/10/2021,12/17/2018,06/2017 Seasonal Influenza, Split, I IV3, With Preserve, Inj 11/12/2010,11/12/2009,11/26/2005 TD - Tetanus/Diptheria (ADULT) 10/08/2003 TDAP (age 10 and older)(Boostrix) 08/01/2018 08/01/2028 TDAP (age 11 and older)(Adacel) 12/13/2006 documented as of this encounter Social History Tobacco Use Types Packs/Day Years Used Date Smoking Tobacco: Never Smokeless Tobacco: Never Alcohol Use Standard Drinks/Week Comments Not Currently 0 (1 standard drink = 0.6 oz pur e alcohol) socially PHQ-2 Answer Date Recorded PHQ Adult Total Score 0 11/06/2022 Hunger Vital Sign Answer Date Recorded Within the past 12 months, y ou worried that your food would run out before you got the money to buy more. Never true 06/21/19 23 Within the past 12 months, t he food you bought just didn't last and you didn't have money to get more. Never true 06/20/2022 Sex and Gender Information Value Date Recorded Sex Assigned at Female 03/08/2022 8:26 AM EST Gender Identity Female 03/08/2022 8:26 AM EST Sexual Orientation Straight 03/08/2022 8: 26 AM EST Job Start Date Occupation Industry Not on file Not on file Not on file documented as of this encounter Miscellaneous Notes * Telephone Encounter - Kassandra Coombs CRNP - 02/15/2023 4:08 PM ESTSigned Prescriptions: Disp Refills Verapamil HCl ER 180 MG Oral Capsule Exten*90 Cap*3 Sig: Take 1 Capsule by mouth in the morning. Authorizing Provider: KASSANDRA COOMBS * Telephone Encounter - Reva Spivey LPN - 02/15/2023 3:54 PM EST PHARMACY REQUESTING 90 DAY SUPPLY Did you pend patient's preferred pharmacy and medication before forwarding?yes Pharmacy: [id number] [address] [place] [address] Pending Prescriptions: Disp Refills Verapamil HCl ER 180 MG Oral Capsule Exte*90 Cap*3 Sig: Take 1 Capsule by mouth in the morning. Last Visit: 01/23/2023 (in office), Visit date not found (telemedicine) Next Visit: Visit date not found If no future appointments scheduled, and last appointment is greater than a year ago, please schedule patient for a follow-up appointment Last date the medication was ordered: 01/23/2023 - PHARMACY REQUESTING 90 DAY SUPPLY Is this request for a controlled substance? NO Urine Drug Screen:No results found for this or any previous visit. Patient Phone Numbers Labs: Lab Results Component Value Date/Time CREAT 0.9 05/31/2022 10:01 AM CREAT 0.99 10/07/2019 12:00 AM CREAT 0.8 05/17/2007 04:36 PM POTASSIUM 4.4 05/31/2022 10:01 AM POTASSIUM 3.7 10/07/2019 12:00 AM POTASSIUM 4.2 05/17/2007 04:36 PM TSH 1.51 12/26/2021 12:44 PM TSH 2.28 02/14/2018 09:43 AM LDLCALC 124 12/26/2021 12:44 PM LDLDIRECT 99 05/17/2007 04:36 PM ALT 28 12/26/2021 12:44 PM ALT 17 05/17/2007 04:36 PM documented in this encounter Plan of Treatment Upcoming Encounters Date Type Department Care Team (Late st Contact Info) Description 03/27/2023 3:20 PM EST Office Visit Dermatology[address] [place] [address] Araseli Sharp PA-C [address] [place] [address] [place] [address] 04/11/2023 9:30 AM EST Office Visit Gastroenterology, [facility] [address] [place] [address] Madhavi Torres CRNP [address] [place] [address] 05/24/2023 1:00 PM EDT Office Visit Family Practice [facility] [address] [place] [address] Jacques Badillo DO [address] [place] [address] Health Maintenance Due Date Last Done Comments Hepatitis B (1 of 3 - 3-dose series) 1974 HIV Screening 1989 Cologuard 2019 Fecal Occult Blood Test 2019 Sigmoidoscopy 2019 COVID-19 Vaccine (3 - 2022- season) 2022 10/22/2020, 09/29/2020 Influenza Vaccine (FLU shot) (#1) 2022 12/12/2021, 03/10/2021, 12/17/2018, Additional history exists Depression Screening 11/07/2023 11/06/2022 Mammogram 11/16/2023 11/15/2022, 08/18/2021 Diabetes Screening 05/31/2025 05/31/2022, 1 02/25/2021, 08/01/2021, Additional history exists Lipid Panel 12/26/2026 12/26/2021, 03/15, 05/17/2007 DTaP,Tdap,and Td Vaccines (3 - Td or Tdap) 08/01/2028 08/01/2018, 12/13/2006, 10/08/2003 Colonoscopy 11/03/2029 11/04/2019, 11/04/2019 Colorectal Cancer Screening 11/03/2029 Pap Smear Discontinued 12/02/2015, 05/14, 06/07/2011 (Done elsewhere), Additional history exists Pneumococcal Vaccine: Pediatrics (0 to 5 Years) and At-Risk Patients (6 to 64 Years) Aged Out 12/17/2018 No longer eligible based on patient's age to complete this topic GARDASIL-HPV IMMUNIZATION SERIES Aged Out No longer eligible based on patient's age to complete this topic MENINGOCOCCAL (MENACTRA/MENVEO) Aged Out No longer eligible based on patient's age to complete this topic documented as of this encounter Medical Devices Implanted Type Area Pricing Consultant Device Identifier Shelf Expiration Date Model / Serial / Lot Wire Mailman - [id number] Implanted:Qty: 1 on 05/31/2022 by Radha Montes IV, MD at [facility] : [place] [id number] 11/24/2023 [id number] documented as of this encounter Visit Diagnoses Diagnosis Palpitations- Primary PAF (paroxysmal atrial fibrillation) (HCC) Atrial fibrillation documented in this encounter Advance Directives Latest Code Status on File Code Status Date Activated Date Inactivated Comments Full Code 05/31/2022 3:27 PM 06/01/2022 1:18 AM This order reflects the patients wishes and were consensually agreed upon. Question Answer Comments Discussion of Advance Directives occurred with: Patient
--- OUTSIDE RECORDS SUMMARY | 2023-04-09 23:34 | External Medical Summary | Summary of Care ---
Author Name Unknown Organization [facility] Address [address] [place] [address] Phone [phone] Care Team Providers Care Sewing Room Supervisor Name Role Phone Darron Thompson DO Primary Care Provider [phone] Reason for Visit * Reason Onset Date Comments Encounter Created in Error 11/30/2022 Encounter Details Date Type Department Care Team (Late st Contact Info) Description 11/30/2022 Telephone Family Practice [facility] [address] [facility] [place] [phone] Darron Thompson DO [address] [place] [address] Encounter Created in Error Allergies Active Allergy Reactions Criticality Noted Date Comments Acetaminophen Nausea/vomiting Low 04/11/2016 Other reaction(s): Nausea/Vomiting Codeine High 09/21/2021 Difficulty breathing Morphine Neuro complications (Please comment) 11/09/2020 Pollen 06/20/2017 Venlafaxine 12/03/2012 Other reaction(s): Insomnia documented as of this encounter (statuses as of 03/01/2023) Medications Medication Sig Dispensed Refills Start Date End Date Status Ondansetron 4 MG Oral Tablet Disintegrating (Zofran) Place 1 Tablet on tongue every 8 hours as needed for Nausea. dissolve on tongue. 30 Tablet 1 03/07/2022 Active Aimovig 70 MG/ML Subcutaneous Solution Auto-injector (Erenumab-aooe)Indica tions:Migraine with aura and with status migrainosus, not intractable Inject 2 mL under the skin Every Month. Dose increased to 2mL 1 mL 0 03/17/2022 Active Dicyclomine HCl 10 MG Oral Capsule (Bentyl) Take 1 Capsule by mouth 2 times a day as needed for Cramping. 180 Capsule 3 03/30/2022 Active Famotidine 20 MG Oral Tablet (Pepcid)Indications:G astroesophageal reflux disease with esophagitis without hemorrhage Take 1 Tablet by mouth in the morning and 1 Tablet before bedtime. 180 Tablet 3 04/27/2022 Active tiZANidine HCl 4 MG Oral Tablet (Zanaflex)Indications :DDD (degenerative disc disease), cervical,Occipital neuralgia of left side,Anterolisthesis of lumbar spine,Right lumbar radiculopathy Take 1 Tablet by mouth every 6 hours as needed for Muscle spasms. 30 Tablet 0 05/16/2022 Active Diclofenac Sodium 75 MG Oral Tablet Delayed Release (Voltaren)Indications :Cervical somatic dysfunction,Somatic dysfunction of spine, thoracic,Myofascial pain syndrome Take 1 Tablet by mouth in the morning and 1 Tablet before bedtime. 180 Tablet 3 09/12/2022 Active documented as of this encounter (statuses as of 03/01/2023) Active Problems Problem Noted Date Diagnosed Date [...] as of this encounter (statuses as of 03/01/2023) Resolved Problems Problem Noted Date Diagnosed Date Resolved Date Gallbladder polyp 05/02/2014 09/04/2018 Overview: 2018 CT normal GB 04/26 [facility] US 2 4mm polyp Acute suppurative otitis media 07/21/2013 03/18/2018 Trigger point of neck 10/02/20122018 Acute sinusitis 03/02/2011 04/15/2012 Acute bronchitis, complicated 01/31/2011 04/15/2012 NO KNOWN PROBLEMS 11/28/2006 03/18/2018 documented as of this encounter (statuses as of 03/01/2023) Immunizations Name Administration Dates Next Due COVID-19 [...] encounter Miscellaneous Notes * Telephone Encounter - Domi Patrick OSA - 11/30/2022 10:31 AM EDT error documented in this encounter Plan of Treatment Upcoming Encounters Date Type Department Care Team (Late st Contact Info) Description 03/27/2023 3:20 PM EST Office [address] [address] Araseli Sharp PA-C [address] [place] [address] [place] [address] 04/11/2023 9:30 AM EST Office Visit Gastroenterology, [facility] [address] [place] [address] Madhavi Torres CRNP [address] [place] [address] 05/24/2023 1:00 PM EDT Office Visit Family Practice [facility] [address] [place] [address] Jacques Badillo DO [address] [place] [address] Health Maintenance Due Date Last Done Comments Hepatitis B (1 of 3 - 3-dose series) 1974 HIV Screening 1989 Cologuard 2019 Fecal Occult Blood Test 2019 Sigmoidoscopy 2019 COVID-19 Vaccine ( season) 2022 10/22/2020, 09/29/2020 Influenza Vaccine (FLU [...] this encounter Medical Devices Implanted Type Area Supervisor Locomotive Device Identifier Shelf Expiration Date Model / Serial / Lot Wire Mailman - [id number] Implanted:Qty: 1 on 05/31/2022 by Radha Montes IV, MD at [facility] [place] [employer] : [place] [id number] 11/24/2023 [id number] documented as of this encounter Advance Directives Latest Code Status on File Code Status Date Activated Date Inactivated Comments Full Code 05/31/2022 3:27 PM 06/01/2022 1:18 AM This order reflects the patients wishes and were consensually agreed upon. Question Answer Comments Discussion of Advance Directives occurred with: Patient Care Teams Sewing Room Supervisor Relationship Specialty Start Date End Date Darron Thompson DO PCP - General Family Medicine 07/22/21 12/21/22 documented as of this encounter
--- OUTSIDE RECORDS SUMMARY | 2023-04-09 23:34 | External Medical Summary | Summary of Care ---
Author Name Unknown Organization [facility] Address [address] [facility] [place] [address] Phone [phone] Care Team Providers Care Enrolled Nurse Name Role Phone Unavailable Primary Care Provider Unavailabl e Reason for Visit * Reason Onset Date Comments Films 2023 Encounter Details Date Type Department Care Team (Late st Contact Info) Description 2023 Telephone Radiology Film File [address] [place], [place] [phone] Jacques Badillo, [address] [facility] [place] [address] Films Allergies Active Allergy Reactions Criticality Noted Date Comments Acetaminophen Nausea/vomiting Low 04/11/2016 Other reaction(s): Nausea/Vomiting Codeine High 09/21/2021 Difficulty breathing Morphine Neuro complications (Please comment) 11/09/2020 Pollen 06/20/2017 Venlafaxine 12/03/2012 Other reaction(s): Insomnia documented as of this encounter (statuses as of 2023) Medications Medication Sig Dispensed Refills Start Date [...] Extended Release 24 HourIndications:PAF (paroxysmal atrial fibrillation) ([facility]),Palpitations Take 1 Capsule by mouth in the morning. 90 Capsule 3 02/15/2023 Active documented as of this encounter (statuses as of 2023) Active Problems Problem Noted Date Diagnosed Date [...] as of this encounter (statuses as of 2023) Resolved Problems Problem Noted Date Diagnosed Date Resolved Date Gallbladder polyp 05/02/2014 09/04/2018 Overview: 2017 CT normal GB 04/26 [facility] US 2 4mm polyp Acute suppurative otitis media 07/21/2013 03/18/2018 Trigger point of neck 10/02/20122018 Acute sinusitis 03/02/2011 04/15/2012 Acute bronchitis, complicated 01/31/2011 04/15/2012 NO KNOWN PROBLEMS 11/28/2006 03/18/2018 documented as of this encounter (statuses as of 2023) Immunizations Name Administration Dates Next Due COVID-19 mRNA, LNP-s, No Pre serve, 2-Dose Series (Doctor[employer]) 10/22/2020,09/29/2020 Pneumococcal Polysaccharide PPV23 (Pneumovax) 12/17/2018 Seasonal [...] encounter Miscellaneous Notes * Telephone Encounter - Viola Pelaez OSA - 2023 3:22 PM EST Patient signed patient right of access form to release 09-05-2012 xray and 10-14-21 MRI image(s) toself . Images pushed to patient Life Image account Job ID: [id number] documented in this encounter Plan of Treatment Upcoming Encounters Date Type Department Care Team (Late st Contact Info) Description 03/27/2023 3:20 PM EST Office Visit Dermatology[address] [place] [address] Araseli Sharp PA-C [address] [place] [address] [place] [address] 04/11/2023 9:30 AM EST Office Visit Gastroenterology, [facility] [address] [place] [address] Madhavi Torres CRNP [address] [place] [address] 05/24/2023 1:00 PM EDT Office Visit Family Practice [facility] [address] [place] [address] Jacques Badillo DO [address] [place] [address] Health Maintenance Due Date Last Done Comments Hepatitis B (1 of 3 - 3-dose series) 1974 HIV Screening 1989 Cologuard 2019 Fecal Occult Blood Test 2019 Sigmoidoscopy 2019 COVID-19 Vaccine (3 - season) 2022 10/22/2020, 09/29/2020 Influenza Vaccine (FLU [...] this encounter Medical Devices Implanted Type Area Medical Geneticist Device Identifier Shelf Expiration Date Model / Serial / Lot Wire Mailman - [id number] Implanted:Qty: 1 on 05/31/2022 by Radha Montes IV, MD at [facility] [employer] : [place] IV [id number] 11/24/2023 [id number] documented as of this encounter Advance Directives Latest Code Status on File Code Status Date Activated Date Inactivated Comments Full Code 05/31/2022 3:27 PM 06/01/2022 1:18 AM This order reflects the patients wishes and were consensually agreed upon. Question Answer Comments Discussion of Advance Directives occurred with: Patient
--- OUTSIDE RECORDS SUMMARY | 2023-04-09 23:34 | External Medical Summary | Summary of Care ---
Author Name Unknown Organization [facility] Address [address] [facility] [place] [address] Phone [phone] Care Team Providers Care Job Specification Writer Name Role Phone Unavailable Primary Care Provider Unavailabl e Reason for Visit * Reason Comments Follow Up Encounter Details Date Type Department Care Team (Late st Contact Info) Description 01/23/2023 8:00 AM EST Office Visit Cardiology, [facility] [address] [facility] [place] [id number] Kassandra Coombs [facility] [address] [facility] [id number] PAF (paroxysmal atrial fibrillation) ([facility])*; Palpitations; S/P ablation of atrial fibrillation; APC (atrial premature contractions) Allergies Active Allergy Reactions Criticality Noted Date Comments Acetaminophen Nausea/vomiting Low 04/11/2016 Other reaction(s): Nausea/Vomiting Codeine High 09/21/2021 Difficulty breathing Morphine Neuro complications (Please comment) 11/09/2020 Pollen 06/20/2017 Venlafaxine 12/03/2012 Other reaction(s): Insomnia documented as of this encounter (statuses as of 01/25/2023) Medications Medication Sig Dispensed Refills Start Date End Date Status Ondansetron 4 MG Oral Tablet Disintegrating (Zofran) Place 1 Tablet on tongue every 8 hours as needed for Nausea. dissolve on tongue. 30 Tablet 1 3 Active Aimovig 70 MG/ML Subcutaneous Solution Auto-injector (Erenumab-aooe)Rhea cations:Migraine with aura and with status migrainosus, not intractable Inject 2 mL under the skin Every Month. Dose increased to 2mL 1 mL 0 3 Active Dicyclomine HCl 10 MG Oral Capsule (Bentyl) Take 1 Capsule by mouth 2 times a day as needed for Cramping. 180 Capsule 3 3 Active Famotidine 20 MG Oral Tablet (Pepcid)Indications :Gastroesophageal reflux disease with esophagitis without hemorrhage Take 1 Tablet by mouth in the morning and 1 Tablet before bedtime. 180 Tablet 3 3 Active tiZANidine HCl 4 MG Oral Tablet (Zanaflex)Indicatio ns:DDD (degenerative disc disease), cervical,Occipital neuralgia of left side,Anterolisthesi s of lumbar spine,Right lumbar radiculopathy Take 1 Tablet by mouth every 6 hours as needed for Muscle spasms. 30 Tablet 0 3 Active Diclofenac Sodium 75 MG Oral Tablet Delayed Release (Voltaren)Indicatio ns:Cervical somatic dysfunction,Somatic dysfunction of spine, thoracic,Myofascial pain syndrome Take 1 Tablet by mouth in the morning and 1 Tablet before bedtime. 180 Tablet 3 3 Active Verapamil HCl ER 180 MG Oral Capsule Extended Release 24 Hour Take 1 Capsule by mouth in the morning. 30 Capsule 11 3 Active Apixaban 5 MG Oral Tablet (Eliquis) Take 1 Tablet by mouth in the morning and 1 Tablet before bedtime. 60 Tablet 11 3 Active Omeprazole 20 MG Oral Capsule Delayed Release (PriLOSEC) TAKE 1 CAPSULE BY MOUTH IN THE MORNING AND BEFORE BEDTIME 60 Capsule 3 3 01/26/20 23 Discontinued Celecoxib 200 MG Oral Capsule (CeleBREX) Take 1 Capsule by mouth in the morning. 20 Capsule 2 3 01/24/20 23 Discontinued busPIRone HCl 5 MG Oral Tablet (Buspar)Indications :RONEN (generalized anxiety disorder) Take 1 Tablet by mouth in the morning and 1 Tablet before bedtime. 60 Tablet 0 3 01/24/20 23 Discontinued documented as of this encounter (statuses as of 01/25/2023) Active Problems Problem Noted Date Diagnosed Date [...] as of this encounter (statuses as of 01/25/2023) Resolved Problems Problem Noted Date Diagnosed Date Resolved Date Gallbladder polyp 05/02/2014 09/04/2018 Overview: 2018 CT normal GB 04/26 [facility] US 2 4mm polyp Acute suppurative otitis media 07/21/2013 03/18/2018 Trigger point of neck 10/02/20122018 Acute sinusitis 03/02/2011 04/15/2012 Acute bronchitis, complicated 01/31/2011 04/15/2012 NO KNOWN PROBLEMS 11/28/2006 03/18/2018 documented as of this encounter (statuses as of 01/25/2023) Immunizations Name Administration Dates Next Due COVID-19 mRNA, LNP-s, No Pre serve, 2-Dose Series (Progeniq) 10/22/2020,09/29/2020 Pneumococcal Polysaccharide PPV23 (Pneumovax) 12/17/2018 Seasonal [...] on file documented as of this encounter Last Filed Vital Signs Vital Sign Reading Time Taken Comments Blood Pressure 116/78 01/23/2023 7:54 AM EST Pulse 76 01/23/2023 7:54 AM EST Temperature - - Respiratory Rate 14 01/23/2023 7:54 AM EST Oxygen Saturation - - Inhaled Oxygen Concentration - - Weight 95.3 kg (210 lb) 01/23/2023 7:54 AM EST Height - - Body Mass Index 34.95 11/06/2022 8:18 AM EDT documented in this encounter Progress Notes * Shayy Campbell, - 01/23/2023 10:12 AM EST I have reviewed the advanced practitioner documentation and agree. I saw and evaluated the patient on date of service referenced in note and have performed the following medically appropriate historyand/or exam: Pt seen in EP f/u due to recurrent pAF. Pt has been having more frequent palpitations-where her HR gets up to the 190s/200s; duration can be a few hours at times; she captures the recording on her smart watch-based on my review today it isdefinitely some atrial arrhythmia- I suspect atypical flutter as it is pretty regular to say it is pAF but I can not exclude this. Recommend restarting eliquis Recommend starting verapamil Recommend zio patch monior Continue to monitor home rhythms with her smart watch EP f/u 1 month Shayy Campbell DO Department of Cardiology [facility] [place] [address] documented in this encounter Procedure Notes * Aaron Fernandez DO - 01/23/2023 8:03 AM ESTAssociated Order(s): EKG REASON FOR STUDY: pAF CONCLUSIONS: Normal sinus rhythm High QRS voltage may be normal variant or due to lve Nonspecific T wave abnormality Abnormal ECG When compared with ECG of 12-SEP-2022 15:49, No significant change was found Ventricular Rate: 63 Atrial Rate: 63 [place] Interval: 138 QRS Duration: 80 QT/QTc: 412/421 ms P-R-T [place]: 29 : -5 : 1 degrees documented in this encounter Nursing Notes * Reva Spivey LPN - 01/23/2023 7:54 AM EST Examination Room: 3 Name: Hailey Sharma Date of : 1975 Reason for Visit: Follow up Problems/Concerns: Still having s/s afib Interim Hosp(s): denies Chest Pain/SOB: denies MyChart Discussed: ALREADY ACTIVE Patient was instructed to not get up on the exam table until directed and assisted by their provider; patient is to remain seated in the chair/ wheelchair/ exam table for fall prevention and safety reasons. Patient is aware staff will assist stepping down off exam table with personnel. documented in this encounter Plan of Treatment Upcoming Encounters Date Type Department Care Team (Late st Contact Info) Description 04/03/2023 3:20 PM EST Office Visit [address] [place] [address] Araseli Rowe PA-C [address] [place] [address] [place] [address] 04/11/2023 9:30 AM EST Office Visit Gastroenterology, [facility] [address] [place] [address] Madhavi Torres CRNP [address] [place] [address] 05/24/2023 1:00 PM EDT Office Visit Family Practice [facility] [address] [place] [address] Jacques Badillo DO [address] [place] [address] Scheduled Orders Name Type Priority Associated Diagnoses Orde r Schedule EXTERNAL EKG 8 TO 15 DAYS Holter Routine S/P ablation of atrial fibrillation PAF (paroxysmal atrial fibrillation) (HCC) Palpitations APC (atrial premature contractions) Expected: 01/23/2023 (Approximate), Expires: 01/24/2024 Health Maintenance Due Date Last Done Comments [...] this encounter Medical Devices Implanted Type Area Integrity Director Device Identifier Shelf Expiration Date Model / Serial / Lot Wire Mailman - [id number] Implanted:Qty: 1 on 05/31/2022 by Radha Montes IV, MD at [facility] [employer] : PERIPHL IV [id number] 11/24/2023 [id number] documented as of this encounter Procedures Procedure Name Priority Date/Time Associated Diagnosis Comments [place] ECG ROUTINE ECG W/LEAST 12 LDS TRCG ONLY W/O I&R Routine 01/23/2023 8:03 AM EST S/P ablation of atrial fibrillation PAF (paroxysmal atrial fibrillation) (HCC) Palpitations APC (atrial premature contractions) documented in this encounter Results * EKG (01/23/2023 8:03 AM EST) 01/23/2023 8:03 AM EST Narrative Procedure Note Aaron Fernandez, DO - 01/23/2023 8:03 AM EST REASON FOR STUDY: pAF CONCLUSIONS: Normal sinus rhythm High QRS voltage may be normal variant or due to lve Nonspecific T wave abnormality Abnormal ECG When compared with ECG of 12-SEP-2022 15:49, No significant change was found Ventricular Rate: 63 Atrial Rate: 63 [place] Interval: 138 QRS Duration: 80 QT/QTc: 412/421 ms P-R-T [place]: 29 : -5 : 1 degrees Kassandra CARVALHO EKG [facility] documented in this encounter Visit Diagnoses Diagnosis PAF (paroxysmal atrial fibrillation) (HCC)- Primary Atrial fibrillation Palpitations S/P ablation of atrial fibrillation Other postprocedural status APC (atrial premature contractions) Supraventricular premature beats documented in this encounter Advance Directives Latest Code Status on File Code Status Date Activated Date Inactivated Comments Full Code 05/31/2022 3:27 PM 06/01/2022 1:18 AM This order reflects the patients wishes and were consensually agreed upon. Question Answer Comments Discussion of Advance Directives occurred with: Patient
--- OUTSIDE RECORDS SUMMARY | 2023-04-09 23:34 | External Medical Summary | Summary of Care ---
Author Name Unknown Organization [facility] Address [address] [facility] [place] [address] Phone [phone] Care Team Providers Care Earth Science Faculty Member Name Role Phone Unavailable Primary Care Provider Unavailabl e Reason for Visit * Reason Onset Date Comments Medication Problem 03/14/2023 Encounter Details Date Type Department Care Team (Late st Contact Info) Description 03/14/2023 Telephone Gastroenterology, [facility] [address] [address] Madhavi Torres CRNP [address] [place] [address] Medication Problem Allergies Active Allergy Reactions Criticality Noted Date Comments Acetaminophen Nausea/vomiting Low 04/11/2016 Other reaction(s): Nausea/Vomiting Codeine High 09/21/2021 Difficulty breathing Morphine Neuro complications (Please comment) 11/09/2020 Pollen 06/20/2017 Venlafaxine 12/03/2012 Other reaction(s): Insomnia documented as of this encounter (statuses as of 03/15/2023) Medications Medication Sig Dispensed Refills Start Date [...] before bedtime. 60 Tablet 11 01/23/2023 Active Verapamil HCl ER 180 MG Oral Capsule Extended Release 24 HourIndications:PAF (paroxysmal atrial fibrillation) (HCC),Palpitations Take 1 Capsule by mouth in the morning. 90 Capsule 3 02/15/2023 Active Omeprazole 20 MG Oral Capsule Delayed Release (PriLOSEC) Take 1 Capsule by mouth in the morning and 1 Capsule before bedtime. 60 Capsule 5 03/15/2023 Active Omeprazole 20 MG Oral Capsule Delayed Release (PriLOSEC) TAKE 1 CAPSULE BY MOUTH IN THE MORNING AND AT BEDTIME 60 Capsule 5 01/25/2023 Discontinue d(Refill) documented as of this encounter (statuses as of 03/15/2023) Active Problems Problem Noted Date Diagnosed Date [...] as of this encounter (statuses as of 03/15/2023) Resolved Problems Problem Noted Date Diagnosed Date Resolved Date Gallbladder polyp 05/02/2014 09/04/2018 Overview: 2018 CT normal GB 04/26 [facility] US 2 4mm polyp Acute suppurative otitis media 07/21/2013 03/18/2018 Trigger point of neck 10/02/20122018 Acute sinusitis 03/02/2011 04/15/2012 Acute bronchitis, complicated 01/31/2011 04/15/2012 NO KNOWN PROBLEMS 11/28/2006 03/18/2018 documented as of this encounter (statuses as of 03/15/2023) Immunizations Name Administration Dates Next Due COVID-19 [...] encounter Miscellaneous Notes * Telephone Encounter - Jerri Gonzalez RN - 03/14/2023 4:39 PM EST Received request for 90 day rx. documented in this encounter Plan of Treatment Upcoming Encounters Date Type Department Care Team (Late st Contact Info) Description 03/27/2023 3:20 PM EST Office Visit Dermatology[address] [place] [address] Araseli Sharp PA-C [address] [place] [address] [place] [address] 04/11/2023 9:30 AM EST Office Visit Gastroenterology, [facility] [address] [place] [address] Madhavi Torres CRNP [address] [place] [address] 05/24/2023 1:00 PM EDT Office Visit Family Practice [facility] [address] [place] [address] Jacques Badillo, [address] [place] [address] Health Maintenance Due Date Last Done Comments [...] this encounter Medical Devices Implanted Type Area Inspection Engineer Device Identifier Shelf Expiration Date Model / Serial / Lot Wire Mailsan francisco - [id number] Implanted:Qty: 1 on 05/31/2022 by Radha Montes IV, MD at [facility] [employer] : AURE DUBOIS [id number] 11/24/2023 [id number] / / [id number] documented as of this encounter Advance Directives Latest Code Status on File Code Status Date Activated Date Inactivated Comments Full Code 05/31/2022 3:27 PM 06/01/2022 1:18 AM This order reflects the patients wishes and were consensually agreed upon. Question Answer Comments Discussion of Advance Directives occurred with: Patient
--- OUTSIDE RECORDS SUMMARY | 2023-04-09 23:35 | External Medical Summary | Summary of Care ---
Author Name Unknown Organization [facility] Address [address] [place] [address] Phone [phone] Care Team Providers Care Airplane Dispatcher Name Role Phone Unavailable Primary Care Provider Unavailabl e Reason for Visit * Reason Comments eRx-Medication Refill Encounter Details Date Type Department Care Team (Late st Contact Info) Description 01/23/2023 Refill Gastroenterology, [facility] [address] [place] [address] Madhavi Chávez CRNP [address] [place] [address] Encounter for long-term (current) drug use* Allergies Active Allergy Reactions Criticality Noted Date [...] MORNING AND AT BEDTIME 60 Capsule 5 3 Active Omeprazole 20 MG Oral Capsule Delayed Release (PriLOSEC) TAKE 1 CAPSULE BY MOUTH IN THE MORNING AND BEFORE BEDTIME 60 Capsule 3 3 01/26/20 23 Discontinued documented as of this encounter [...] 09/04/2018 Overview: 2018 CT normal GB 04/26 [facility] US 2 4mm polyp Acute suppurative otitis [...] encounter Miscellaneous Notes * Telephone Encounter - [facility] - 01/25/2023 9:01 AM ESTSigned Prescriptions: Disp Refills Omeprazole 20 MG Oral Capsule Delayed Rele*60 Cap*5 Sig: TAKE 1 CAPSULE BY MOUTH IN THE MORNING AND AT BEDTIMEAuthorizing Provider: MADHAVI CHÁVEZ User: SAMUEL HYDE * Telephone Encounter - Kerri Bender plunket nurse - 01/24/2023 3:05 PM EST Pending Prescriptions: Disp Refills Omeprazole 20 MG Oral Capsule Delayed Rele*60 Cap*3 Sig: TAKE 1 CAPSULE BY MOUTH IN THE MORNING AND AT BEDTIME * Telephone Encounter - Kerri Bender plunket nurse - 01/24/2023 3:04 PM EST Patient is up to date for office visits. Pending Prescriptions: Disp Refills Omeprazole 20 MG Oral Capsule Delayed Rel*60 Cap*3 Sig: TAKE 1 CAPSULE BY MOUTH IN THE MORNING AND AT BEDTIME Last Visit: 10/09/2022 (in office), 12/31/2019 (telemedicine) Next Visit: 04/11/2023 If no future appointments scheduled, and last appointment is greater than a year ago, please schedule patient for a follow-up appointment Last date the medication was ordered: 09/15 Pharmacy: [id number] [id number] [facility] Is this request for a controlled substance?No it is not controlled. Urine Drug Screen:No results found for this [...] Description 04/03/2023 3:20 PM EST [facility] [place] [id number] Araseli Sharp PA-C [address] [place] [address] [place] [address] 04/11/2023 9:30 AM EST Office Visit Gastroenterology, [facility] [address] [place] [address] Madhavi Chávez CRNP [address] [place] [address] 05/24/2023 1:00 PM EDT Office Visit Family Practice [facility] [address] [place] [address] Jacques Badillo, [address] [place] [address] Scheduled Orders Name Type Priority Associated Diagnoses Orde r Schedule VITAMIN B12 Lab Routine Encounter for long-term (current) drug use Expected: 01/25/2023 (Approximate), Expires: 01/26/2024 [facility] Lab Routine Encounter for long-term (current) drug use Expected: 01/25/2023 (Approximate), Expires: 01/26/2024 Health Maintenance Due Date Last Done Comments [...] this encounter Medical Devices Implanted Type Area Tube Carrier Device Identifier Shelf Expiration Date Model / Serial / Lot Wire Mailman - [id number] Implanted:Qty: 1 on 05/31/2022 by Radha Montes IV, MD at [facility] [place] [employer] : PERIPHL IV [id number] 11/24/2023 [id number] documented as of this encounter Visit Diagnoses Diagnosis Encounter for long-term (current) drug use- Primary Encounter for long-term (current) use of other medications documented in this encounter Advance Directives Latest Code Status on File Code Status Date Activated Date Inactivated Comments Full Code 05/31/2022 3:27 PM 06/01/2022 1:18 AM This order reflects the patients wishes and were consensually agreed upon. Question Answer Comments Discussion of Advance Directives occurred with: Patient
[2023-04-10 05:43] LABS: Hematocrit (blood only) 36.6 % (37.0-47.0); Hemoglobin 12.5 g/dl (12.0-16.0); Mean Corpuscular Hgb Conc 34.2 g/dL (32.0-36.0); Mean Platelet Volume 8.3 fL (9.4-12.4); Platelet Count 193 K/uL (130-400); RDW Coefficient of Variation 12.6 % (11.5-14.5); RDW Standard Deviation 40.4 fL (36.4-46.3); Red Blood Count 4.16 M/uL (4.20-5.40); White Blood Count 6.96 K/ul (4.8-10.8)
[2023-04-10 06:06] LABS: BUN Creatinine Ratio 11.3 (10-20); Calcium 8.5 mg/dl (8.6-10.3); Creatinine Clr Calc Pharmacy 80.4 ml/min; Est GFR (African American) 79.5 ml/min; Est GFR (Non-African American) 68.6 ml/min; Phosphorus 3.2 mg/dl (2.5-4.9); Potassium 4.8 mmol/L (3.5-5.1)
--- NOTE | 2023-04-10 08:44 | Cardiology Consultation ---
Date of Consultation April 10, 2023 Assessment & Plan (1) Syncope: (2) Acute hypokalemia: Plan Assessment: 48 year old female with known history of A-fib s/p ablation, presents after sustaining a syncopal episode at work, concerns for possible arrhythmia related event. Plan: 1. Syncope: -Etiology unclear, and certainly can not exclude arrhythmia related cause. -Also likely vasovagal syncope s/t GI distress at time of event. -Possible tachybrady syndrome given EKG upon arrival is bradycardic. will repeat. -Discussed continued monitoring on telemetry and likely need for protracted cardiac monitoring at time of discharge with a ZIO monitor, and will need to follow up with EP upon discharge -Resp. panel to exclude viral etiology -patient ok to eat, and encourage increased hydration -Echocardiogram pending to assess overall structure and function. - Continue to monitor on telemetry while CCB is on hold. 2. Hypokalemia -Resolved with supplementation -Continue to monitor electrolytes closely -Serum K >4.0 and serum Mag> 2.0 Case has been discussed with Dr. Sarmiento. Further recommendations regarding plan of care as per his assessment. I spent a total of 30 minutes on the date of service in preparation, delivery, documentation of the care provided to the patient excluding any time spent in the performance of separately billed services. DEVEN [facility] Cardiology [facility] Supervising Physician Co-Signing Physician Notes I have reviewed the advance practitioner's documentation, and I agree with, and take responsibility for the plan of care. 48-year-old female admitted with syncope. Describes nausea, and warmth preceding syncopal episode. Reports recurrent episodes of syncope during her teenage years as well as numerous bouts of near syncope as an adult. Monitors heart rate/rhythm via Tandem. Occasional episodes of atrial fibrillation recorded, however, no atrial fibrillation was recorded at the time of her syncopal episode. She has remained in sinus rhythm since admission. Reports multiple prior medications were ineffective including beta-blockers, and antiarrhythmic therapy, flecainide. Currently feeling better from a cardiovascular perspective. Previously noted nausea and abdominal discomfort has resolved. Significant hypokalemia noted on admission. PE: VSS. Gen: NAD, AAO x3. Heart: Regular rhythm, normal S1-S2. No murmur. Lungs: Clear bilateral, no rales, rhonchi, wheeze. Abdomen: Soft, nontender, nondistended. Normal bowel sounds. Extremities: No edema. A/P: 48-year-old female admitted secondary to syncope. Likely vasovagal mechanism. She also carries history of paroxysmal atrial fibrillation which is followed closely by electrophysiology. Recommend continue verapamil and follow- up with electrophysiology as scheduled on Sunday. Echocardiogram results reviewed demonstrating normal LV function, no significant valvular pathology. Encourage patient to maintain adequate hydration, electrolyte replacement, lowers to ground with any near syncopal symptoms. Consider addition of compression stockings. All questions answered to patient's satisfaction. I spent a total of 30 minutes on the date of service in preparation, delivery, and documentation of the care provided to this patient, excluding any time spent in the performance of separately billed services. History of Present Illness Reason for Consultation: Syncope, hypokalemia Requesting Physician: Venkata bhatti Attending Physician: Liliya Simon MD History of Present Illness HPI: Patient is a 48 year old female known to our practice that presented to the ED 04/09/23 after a syncopal episode at work. Patient states that she has been dealing with ongoing palpitations and dizzy spells for several months. Evaluated and restarted on verapamil by cardiology which initially she felt had helped, but over the past few weeks, reports that her palpitations have become more frequent and "more intense". She reports over this past weekend she felt extremely fatigued and had a lot of dizziness. Reports laying on the couch most of the weekend. No URI symptoms. no GI distress. She presented to work yesterday feeling off. Endorsed dizziness (but tolerable), and intermittent spells of nausea. [facility] to [facility] [id number] and got a hot dog and pepsi. She reports consuming the hotdog and maybe 2 or 3 sips of soda. [place] slightly better and returned to work. Approx 30minutes later reports sitting at her desk with palpitations, feeling as though she were in a fog, perfuse sweating and nausea. She felt she was going to be sick and vomit and had gotten up to head to the bathroom. She reports feeling weak and falling, trying to get up as fast as possible not wanting people to see. She began walking to the bathroom again feeling as though she could vomit as well as started expericing abdominal cramping. the last thing she remembers was looking straight ahead and seeing her boss, and then work up on the floor. She knew where she was, and who was there, but no recall of "passing out" Believes she was out for less than a minute. She does report using the restroom after the event and having a one time episode of vomiting and diarrhea. Nothing since. Denies any chest pain, pressure or palpitations today at time of exam. No recent URI symptoms. Denies any further episodes of vomiting or diarrhea but continues to endorse intermittent dizziness and nausea Serum potassium noted to be critically low at 2.4, since supplemented. EKG on admission demonstrates sinus bradycardia, rate 53bpm. Of note, patient was seen by EP (Dr. Campbell and Kassandra CARVALHO) on 01/23/2023. She had endorsed more frequent palpitations and alarms on her smart watch with HRs in the 190's/200's for a few hours at at time. She was reocmmended to restart her Eliquis and Verapamil. PMHx: Atrial fibrillation s/p ablation Atrial flutter (currently on Verapamil and apixaban) Allergies Allergy/AdvReac Type Severity Reaction Status Date / Time morphine Allergy Severe N/V,HEADACHE,CANT Verified 04/09/23 17:01 BREATHE acetaminophen AdvReac Mild Nausea/Vomi Verified 04/09/23 17:01 ting Home Medications Medication Instructions Recorded Confirmed Type omeprazole 20 mg capsule,delayed 20 mg PO AMHS AM 03/09/21 04/09/23 History release apixaban 5 mg tablet 5 mg PO AMHS 06/13/22 04/09/23 History famotidine 20 mg tablet 20 mg PO BID 06/13/22 04/09/23 History ondansetron 4 mg disintegrating 4 mg PO Q8H PRN Nausea 06/13/22 04/09/23 History tablet tizanidine 4 mg tablet 4 mg PO Q6H PRN Muscle Spasm 06/13/22 04/09/23 History duloxetine 30 mg capsule,delayed 30 mg PO QAM 04/09/23 04/09/23 History release ketoconazole 2 % topical cream 1 applic topical UD 04/09/23 04/09/23 History verapamil 180 mg 24 hr 180 mg PO QAM 04/09/23 04/09/23 History capsule,extended release Patient History Medical History Atrial fibrillation with RVR Atrial fib/flutter, transient Pancreatitis, acute resolved over night Obesity Depression Surgical History S/P ablation of atrial fibrillation H/O: hysterectomy Family History Other Cancer Depression Social History Smoking Status: Current every day smoker Tobacco Type: E-cigarettes / Vaping Second Hand Exposure: No; Do You Dip or Chew Tobacco: No; Tobacco Cessation Education Requested by Patient: No Hx Alcohol Use: No Hx Substance Use: No Preferred Language: Hong Konger Communication Ability: Effective 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 Beliefs That Will Affect Care: None Current Living Situation: Spouse Other Information That Helps Us Care for You: No Feels Safe at Home: Yes Safety Concerns: Feels Safe At This Time Assistive Devices: None Review of Systems Review of Systems: All systems reviewed & are unremarkable except as noted in HPI & below Physical Exam Constitutional: well developed and well nourished; no acute distress Neck: normal visual inspection and trachea midline Respiratory: normal respiratory effort, lungs clear to auscultation Auscultation: lungs clear to auscultation bilaterally Cardiovascular: RRR, no murmur, no edema Rate/Rhythm: regular rate and regular rhythm Heart Sounds: normal S1 and normal S2; no murmur Vessels: no JVD Extremities: no edema Skin: no rashes, warm and dry Psychiatric: A+Ox3, euthymic affect Results & Data Vital Signs (Past 12 Hours) Vital Signs Temp Pulse Pulse Resp BP Pulse Ox O2 Del Method 04/10/23 07:53 36.6 C 63 18 126/85 97 Room Air 04/10/23 03:02 36.6 C 66 16 110/73 97 Room Air 04/09/23 23:33 58 L 04/09/23 23:03 36.6 C 65 18 139/92 97 Room Air Laboratory Results Cardiac Enzymes 04/09/23 Range/Units 14:41 Troponin I High Sens < 2.3 (0-14) pg/ml Coagulation 04/09/23 Range/Units 14:41 PT 12.6 H (9.0-12.0) Seconds APTT 23 (21-31) Seconds CBC 04/09/23 04/10/23 Range/Units 14:41 05:27 WBC 8.74 6.96 (4.8-10.8) K/ul RBC 4.07 L 4.16 L (4.20-5.40) M/uL Hgb 12.1 12.5 (12.0-16.0) g/dl Hct 36.0 L 36.6 L (37.0-47.0) % Plt Count 199 193 (130-400) K/uL Neut # (Auto) 4.59 (1.40-6.50) K/uL Lymph # (Auto) 3.56 H (1.20-3.40) K/uL Pitkin # (Auto) 0.51 (0.11-0.59) K/uL Eos # (Auto) 0.02 (0.00-0.50) K/uL Baso # (Auto) 0.03 (0.00-0.20) K/uL Comprehensive Metabolic Panel 04/09/23 04/10/23 Range/Units 14:41 05:27 Sodium 140 141 (136-145) mmol/L Potassium 2.6 L 4.8 D (3.5-5.1) mmol/L Chloride 108 H 109 H (98-107) mmol/L Carbon Dioxide 26 29 (21-32) mmol/L BUN 18 11 (6-23) mg/dl Creatinine 1.11 0.97 (0.6-1.2) mg/dl Glucose 124 H 91 (70-99(Fasting)) mg/dl Calcium 8.1 L 8.5 L (8.6-10.3) mg/dl Intake and Output 04/09/23 04/10/23 04/10/23 22:59 06:59 14:59 Intake Total 1500 / 8.4 128.4 / 8.4 0 / 0 Balance 1500 / 2027.4 128.4 / 2027.4 0 / 0 Intake: IV 1400 / 1928.4 128.4 / 1928.4 0 / 0 Heparin Sodium/Dextrose 25,000 128.4 / 128.4 0 / 0 units In 500 ml @ 900 UNITS/HR 18 mls/hr IV .Q24H CUBA Rx#: [id number] Potassium Chloride / Wtr 10 meq 400 / 400 In 100 ml @ 100 mls/hr IV Q1H CUBA Rx#:[id number] Sodium Chloride 0.9% 1,000 ml @ 1000 / 1000 999 mls/hr IV .Q1H1M ONE Rx#: [id number] Oral 100 / 100 Other: # Unmeasured Voids 2 Weight 92.5 kg Weight Measurement Method Built in [facility] Diagnostic Findings EKG 04/09/23 SR with T wave abnormality Rate 53bm
[2023-04-10] MEDS: POTASSIUM CHLORIDE CRTAB 20 MEQ TABCR PO SCH (08:45)
[2023-04-10 14:53] LABS: ANTI-Xa, UFH(UnfractionatedHep 0.56 IU/ml (0.3-0.7)
--- NOTE | 2023-04-10 16:36 | Discharge Summary ---
Discharge Summary Date of Service April 10, 2023 Notes For Next Care Provider Per Cardiology: " Likely vasovagal mechanism. She also carries history of paroxysmal atrial fibrillation which is followed closely by electrophysiology. Recommend continue verapamil and follow-up with electrophysiology as scheduled on Sunday. Echocardiogram results reviewed demonstrating normal LV function, no significant valvular pathology. Encourage patient to maintain adequate hydration, electrolyte replacement, lowers to ground with any near syncopal symptoms. Consider addition of compression stockings." Medication Changes From Visit None Admission HPI Per Admitting Provider Pt is a 48yoF with PMHx significant for atrial fibrillation s/p ablation, atrial flutter currently on verapamil and apixaban presenting after a syncopal episode at work today. States that she has been feeling nauseated and dizzy daily for some time now with noted palpitations. Has an apple watch and it has been noting atrial fibrillation with HR as high as the 150s. Currently bradycardic. States that she was at work today and just not feeling well. Notes that for the past few weeks she has been feeling nauseated and having palpitations with dizziness. States that she has been getting dizzy and nauseated whenever she stands up. States that she got up from her seat to use the bathroom at work before falling and blacking out. States that she has an apple watch that has been noting occasional runs of "atrial fibrillation" with HR as high as 150s. Notes that she last noted this high HR this morning. She notes that she has been feeling the fluttering in her chest. Surprised that she was in sinus rhythm and with noted bradycardia while on the monitor in the hospital. 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 Notes she is s/p ablation as well. States that she has just been "pushing through". States she took her verapamil and Eliquis this morning before arrival. Denies alcohol or excessive caffeine use. Denies a family Hx of cardiac disease. States she has been drinking water to try to stay hydrated. Admission Exam Per Admitting Provider General: Alert, oriented. No acute distress Skin: facial bruising Psych: Appropriate mood and affect Neuro: No gross deficits HEENT: NC, facial bruising Chest: Nontender to palpation. CV: RRR, Normal s1, s2. No murmurs appreciated Resp: Breath sounds clear bilaterally, no increased effort of breathing. Abdomen: Soft, nontender, nondistended. No guarding. No organomegaly appreciated. Extremities: No edema in lower extremities bilaterally. Principal Dx & Hospital Course #1 = Principal Diagnosis (1) Syncope: (2) Facial abrasion: (3) Acute hypokalemia: Plan Pt is a 48yoF with PMHx significant for atrial fibrillation s/p ablation, atrial flutter currently on verapamil and apixaban presenting after a syncopal episode at work today. States that she has been feeling nauseated and dizzy daily for some time now with noted palpitations. Has an apple watch and it has been noting atrial fibrillation with HR as high as the 150s. Currently bradycardic without intervention other than her daily verapamil 180mg this morning. Syncope Hx of atrial fibrillation/atrial flutter Sinus bradycardia Likely in setting of abnormal heart conduction EKG noting sinus bradycardia Echo with normal LV function, no significant valvular pathology UA and urine Cx pending Head CT with no appreciable cause brain MRI wnl Cardiology consulted, appreciate further recs Pt took her medications AM of admission -held home verapamil 180mg given noted bradycardia -Took apixaban 5mg AM of admission, held and transitioned to IV heparin -?tachy david syndrome?-pacer pads were present and available Pt was seen by cardiology who recommended the following: "Likely vasovagal mechanism. She also carries history of paroxysmal atrial fibrillation which is followed closely by electrophysiology. Recommend continue verapamil and follow-up with electrophysiology as scheduled on Sunday. Echocardiogram results reviewed demonstrating normal LV function, no significant valvular pathology. Encourage patient to maintain adequate hydration, electrolyte replacement, lowers to ground with any near syncopal symptoms. Consider addition of compression stockings." Continue to monitor on telemetry Facial abrasions Fall Pt with noted bruising on face on lower lip and left side of forehead Had syncopal episode and fell while on Eliquis Head CT with no acute bleed Imaging of the face, neck, knee,chest also with no noted fractures Pain control as needed Hypokalemia Potassium low at 2.6 on admission Replete as needed Was 4.8 on day of discharge Resume home po medications on discharge Discharge Exam General: Alert, oriented. No acute distress Skin: facial bruising Psych: Appropriate mood and affect Neuro: No gross deficits HEENT: NC, facial bruising Chest: Nontender to palpation. CV: RRR, Normal s1, s2. No murmurs appreciated Resp: Breath sounds clear bilaterally, no increased effort of breathing. Abdomen: Soft, nontender, nondistended. No guarding. No organomegaly appreciated. Extremities: No edema in lower extremities bilaterally. Updated Medication List Medication Instructions Recorded Confirmed Type omeprazole 20 mg capsule,delayed 20 mg PO AMHS AM 03/09/21 04/09/23 History release apixaban 5 mg tablet 5 mg PO AMHS 06/13/22 04/09/23 History famotidine 20 mg tablet 20 mg PO BID 06/13/22 04/09/23 History ondansetron 4 mg disintegrating 4 mg PO Q8H PRN Nausea 06/13/22 04/09/23 History tablet tizanidine 4 mg tablet 4 mg PO Q6H PRN Muscle Spasm 06/13/22 04/09/23 History duloxetine 30 mg capsule,delayed 30 mg PO QAM 04/09/23 04/09/23 History release ketoconazole 2 % topical cream 1 applic topical UD 04/09/23 04/09/23 History verapamil 180 mg 24 hr 180 mg PO QAM 04/09/23 04/09/23 History capsule,extended release Hospital Stay Data Consultations 04/09/23 16:31 ED Decision to Admit Stat 04/09/23 21:19 Consult Cardiology Routine Diagnostic Imagining Performed 04/09/23 14:54 CT cervical spine wo con Stat CT facial bones wo con Stat CT head/brain wo con Stat 04/09/23 19:35 MR brain wo/w con Urgent Cervical Spine CT 04/09/23 14:54 CT OF THE CERVICAL SPINE WITHOUT CONTRAST CLINICAL HISTORY: fall COMPARISON STUDY: Cervical spine radiograph May 22, 2014. Chest CT April 29, 2014. TECHNIQUE: Helical axial images of the cervical spine were obtained without IV contrast. Sagittal and coronal reconstructions were viewed. Automated exposure control was utilized for the study. A dose lowering technique was utilized adhering to the principles of ALARA. FINDINGS: There is straightening of the cervical lordosis. Vertebral body heights are maintained. There is no cervical spine fracture. There is moderate disc space narrowing and osteophytosis at C5-C6. There is moderate multilevel facet arthrosis. The craniocervical junction is intact. Although suboptimally assessed by CT, the thyroid gland appears heterogeneous with mild adjacent edema. IMPRESSION: 1. No acute cervical spine fracture or subluxation. 2. Heterogeneous thyroid gland with mild adjacent edema. The CT appearance is nonspecific. The findings could be correlated with thyroid function tests. ACT 112: Negative or not required by law. Electronically signed by: Tr Izquierdo M.D. 04/09/2023 4:08 PM Chest X-Ray 04/09/23 14:54 SINGLE VIEW CHEST CLINICAL HISTORY: Fall. FINDINGS: An AP, portable, upright chest radiograph is compared to study dated 06/15/2022 and correlated with chest CT dated 04/29/2014. The cardiomediastinal silhouette is unremarkable. The lungs and pleural spaces are clear. No pneumothorax is seen. The bony thorax is grossly intact. IMPRESSION: No active disease in the chest. ACT 112: Negative or not required by law. Electronically signed by: John Dyer M.D. 04/09/2023 3:[address] 04/09/23 14:54 CT facial bones wo con CLINICAL HISTORY: fall TECHNIQUE: Multidetector row helical CT of the maxillofacial bones was performed without administration of intravenous contrast, and processed with bone and soft tissue algorithms. Coronal and sagittal reformations were obtained. Automated dose lowering techniques and/or adjustment according to patient size were utilized for this exam. Comparison: None available at the time of this dictation. FINDINGS: Nasal bones are normal. The mandible is intact. The temporomandibular joints are anatomically aligned. Pterygoid plates are intact. Zygomatic arches are intact. The globes are normal and symmetric, without proptosis, obvious disruption or lens dislocation. There is no orbital radiopaque foreign body. The orbital justice are intact. The retrobulbar fat is without evidence of disruption. Extraocular muscles are normal and symmetric. Optic nerve sheath complexes are normal in course and caliber. Imaged portions of the paranasal sinuses and mastoid air cells are clear. A tiny focus of gas in the left zygomatic soft tissues is nonspecific. IMPRESSION: No acute facial fracture. ACT 112: Negative or not required by law. Electronically signed by: Matthew Lincoln M.D. 04/09/2023 4:[address] 04/09/23 14:54 CT OF THE HEAD WITHOUT CONTRAST CLINICAL HISTORY: fall COMPARISON STUDY: No previous studies for comparison. TECHNIQUE: Helical axial images of the head were obtained without IV contrast. Automated exposure control was utilized for the study. A dose lowering technique was utilized adhering to the principles of ALARA. FINDINGS: No acute intracranial hemorrhage, midline shift or mass effect is present. The ventricular system is unremarkable. The basal cisterns are patent. No extra-axial collections are present. There are no findings to suggest acute dural sinus thrombosis or acute territorial infarct. No significant calvarial abnormalities are present. Visualized portions of the sinuses and mastoid air cells are clear. IMPRESSION: 1. No acute intracranial findings. 2. No calvarial fracture. ACT 112: Negative or not required by law. Electronically signed by: Tr Izquierdo M.D. 04/09/2023 4:04 PM Knee X-Ray 04/09/23 14:54 XR knee LT 3V CLINICAL HISTORY: fall TECHNIQUE: 3 views of the left knee were obtained. Comparison: Comparison is made to left knee radiographs 06/11/2007 FINDINGS: There is no evidence of an acute fracture. Joint spaces are well-preserved. No joint effusion is seen. A fabella is incidentally seen. IMPRESSION: No evidence of acute osseous injury. ACT 112: Negative or not required by law. Electronically signed by: Matthew Lincoln M.D. 04/09/2023 3:19 PM Brain MRI 04/09/23 19:35 Exam(s): MRI HEAD W/WO Contrast EXAM: MR Head Without and With Intravenous Contrast CLINICAL HISTORY: Reason for exam: syncope. TECHNIQUE: Magnetic resonance images of the head/brain without and with intravenous contrast in multiple planes. CONTRAST: 9.5 mL of Gadavist IV. COMPARISON: CT head from April 09, 2023 FINDINGS: Brain: Unremarkable. No mass. No hemorrhage. No acute infarct. No areas of abnormal contrast enhancement. Ventricles: Unremarkable. No ventriculomegaly. Bones/joints: Unremarkable. No acute fracture. Sinuses: Unremarkable as visualized. No acute sinusitis. Mastoid air cells: Unremarkable as visualized. No mastoid effusion. Orbits: Unremarkable as visualized. IMPRESSION: Normal head/brain MRI. Electronically signed by: Gavin Blue MD 04/09/23 23:23 PM Pending Results Patient Have Any Pending Studies at Discharge: No Discharge Instructions Given to Patient (Per Discharging Provider) MsRosalee Glunt, You had a syncopal episode and you were seen by cardiology. They are recommending the following: -You had a likely vasovagal event that caused your syncopal episode -Recommend continue verapamil and follow-up with electrophysiology as scheduled on Sunday. -Maintain adequate hydration, electrolyte replacement, lower to ground with any near syncopal symptoms. -Consider use of compression stockings. Please keep close follow up with your primary care provider after discharge for continued monitoring of your symptoms and labs, as well as with your manager zone as scheduled on Sunday. Please do not hesitate to come back to the emergency room if your symptoms worsen or return. It was a pleasure taking care of you while you were here. Total Time Total Time Spent Total Time Spent (In Minutes): > 30 minutes
== END 2023-04-10 17:15 | disposition home or self-care (01) ==
LOC: EDINP 14:19 → ED 14:19 → 2S 19:35

== ENCOUNTER 2023-04-11 11:57 | Inpatient (IN) ==
--- NOTE | 2023-04-11 12:24 | History & Physical Report ---
Date of Service April 11, 2023 Assessment & Plan (1) History of atrial fibrillation: (2) UTI (urinary tract infection): (3) Tachycardia: (4) Weakness: (5) Facial abrasion: (6) Syncope: Plan Pt is a 48yoF with PMHx significant for atrial fibrillation s/p ablation, atrial flutter currently on verapamil and apixaban presenting once more with dizziness, generalized malaise and reports of runs of atrial fibrillation noted on her apple watch at home once more. Pt was recently admitted on 04/09/23 and discharged on 04/10/23 after benign cardiac telemetry monitoring and workup with instructions to follow up with her dicer machine operator on 04/13/23. Pending Urine Cx currently growing more than 100, 000 colonies of E coli. Pt denies dysuria or fevers, chills or night sweats. WBC repeatedly wnl. Does state that for the past few months her urine has had an abnormal smell, sometimes appearing cloudy. Denies pamela hematuria. Pt was called to advise of urine Cx results and outpatient antibiotic treatment plan. However, she stated that she was having persistent dizziness with runs of atrial fibrillation noted on her apple watch at home once more. She was advised to return for treatment and further evaluation. Syncope Hx of atrial fibrillation/atrial flutter Sinus bradycardia Likely multifactorial EKG noting sinus tachycardia this admission Pt has Hx of atrial fibrillation s/p ablation and atrial flutter in the past Echo with normal LV function, no significant valvular pathology Head CT with no appreciable cause Brain MRI wnl Urine Cx currently growing >100,000 colonies of E coli, sensitivities pending Reached out to pt's EP provider Dr Campbell on 04/11, appreciate recs -states that EKG in ED and home apple watch rhythms pt sent to her were more consistent with atrial tachycardia -she does not recommend admission at this time from a cardiac standpoint -continue with plan for outpatient EP follow up with her as scheduled on 04/13/23 -will plan to stop by to see pt on 04/11/23 Continue with home verapamil and apixaban at this time Continue to monitor on telemetry Complicated UTI Pt denies dysuria or fevers, chills or night sweats. WBC repeatedly wnl. Does state that for the past few months her urine has had an abnormal smell, sometimes appearing cloudy. Denies pamela hematuria. UA with noted leukocyte esterase and hematuria Urine Cx currently growing >100,000 colonies of E coli, sensitivities pending Started treatment with Rocephin, continue Narrow based on Cx results Facial abrasions Fall Pt with noted bruising on face on lower lip and left side of forehead, healing Had syncopal episode and fell while on Eliquis last admission Head CT with no acute bleed Imaging of the face, neck, knee,chest also with no noted fractures Pain control as needed Hypokalemia Potassium low at 2.6 on prior admission Repleted, currently at 3.7 on this admission Will replete to goal 4 and greater will likely need scheduled potassium on discharge Continue to monitor and replete as needed GERD Continue home omeprazole and famotidine CODE STATUS: Full code DVT prophylaxis: On eliquis Diet: HH diet Dispo: Home once medically stable History of Present Illness Chief Complaint: dizziness Primary Care Provider: Jacques Badillo DO Pt is a 48yoF with PMHx significant for atrial fibrillation s/p ablation, atrial flutter currently on verapamil and apixaban presenting once more with dizziness, generalized malaise and reports of runs of atrial fibrillation noted on her apple watch at home once more. Pt was recently admitted on 04/09/23 and discharged on 04/10/23 after benign cardiac telemetry monitoring and workup with cardiology instructions to follow u p with her dicer machine operator on 04/13/23. Pending Urine Cx before discharge currently growing more than 100, 000 colonies of E coli. Pt denies dysuria or fevers, chills or night sweats. WBC repeatedly wnl. Does state that for the past few months her urine has had an abnormal smell, sometimes appearing cloudy. Denies pamela hematuria. Pt was called to advise of urine Cx results and outpatient antibiotic treatment plan prior to arrival this time. However, she stated that she was having persistent dizziness with runs of atrial fibrillation noted on her apple watch at home overnight so she was advised to return for treatment and further evaluation. Allergies Allergy/AdvReac Type Severity Reaction Status Date / Time morphine Allergy Severe N/V,HEADACHE,CANT Verified 04/09/23 17:01 BREATHE acetaminophen AdvReac Mild Nausea/Vomi Verified 04/09/23 17:01 ting Home Medications Medication Instructions Recorded Confirmed Type omeprazole 20 mg capsule,delayed 20 mg PO AMHS AM 03/09/21 04/11/23 History release apixaban 5 mg tablet 5 mg PO AMHS 06/13/22 04/11/23 History famotidine 20 mg tablet 20 mg PO BID 06/13/22 04/11/23 History ondansetron 4 mg disintegrating 4 mg PO Q8H PRN Nausea 06/13/22 04/11/23 History tablet tizanidine 4 mg tablet 4 mg PO Q6H PRN Muscle Spasm 06/13/22 04/11/23 History duloxetine 30 mg capsule,delayed 30 mg PO QAM 04/09/23 04/11/23 History release verapamil 180 mg 24 hr 180 mg PO QAM 04/09/23 04/11/23 History capsule,extended release Past Med/Surg History Medical History Atrial fibrillation with RVR Atrial fib/flutter, transient Pancreatitis, acute resolved over night Obesity Depression Surgical History S/P ablation of atrial fibrillation H/O: hysterectomy Family History Other Cancer Depression Social History Smoking Status: Never smoker Tobacco Type: E-cigarettes / Vaping Second Hand Exposure: No; Do You Dip or Chew Tobacco: No; Hx Alcohol Use: No Hx Substance Use: No Preferred Language: Barbadian Communication Ability: Effective Marketing Finance Specialist 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 No acute distress Skin: facial bruises Psych: Appropriate mood and affect Neuro: No gross deficits HEENT: NC, facial bruises Chest: Nontender to palpation. CV: RRR Resp: Breath sounds clear bilaterally, no increased effort of breathing. Abdomen: Soft, nontender, nondistended. Extremities: No edema in lower extremities bilaterally. Results & Data Results & Data Vital Signs (Past 12 Hours) Vital Signs Temp Pulse Resp BP Pulse Ox 04/11/23 11:57 16 04/11/23 11:57 36.6 C 146 H 16 148/118 H 100 Diagnostic Findings Chest X-Ray 04/11/23 12:18 XR chest 1V portable CLINICAL HISTORY: Chest pain, nonspecific COMPARISON STUDY: Chest CT April 29, 2014. Chest radiograph April 09, 2023. FINDINGS: Lung volumes are normal. Lungs are clear. There is no pneumothorax or pleural effusion. Cardiac size is normal. Mediastinal contours are normal. There is no evidence for pulmonary edema. IMPRESSION: No acute cardiopulmonary findings. ACT 112: Negative or not required by law. Electronically signed by: Tr Izquierdo M.D. 04/11/2023 1:08 PM Abdomen/Pelvis CT 04/11/23 13:29 CT OF THE ABDOMEN AND PELVIS WITH CONTRAST CLINICAL HISTORY: abnormal urine, hematuria COMPARISON STUDY: CT of the abdomen and pelvis September 24, 2019. TECHNIQUE: Following IV administration of 86 mL of Optiray, axial images of the abdomen and pelvis were obtained from the lung bases to the proximal femurs. Images were reviewed in the axial, sagittal, and coronal planes. IV contrast was administered without complication. Automated exposure control was utilized for the study. A dose lowering technique was utilized adhering to the principles of ALARA. CT DOSE: 1496.25 mGy.cm FINDINGS: Lung bases are unremarkable. No pneumatosis, free air or portal venous gas is present. There is no hydronephrosis. No ureteral or bladder calculi. No renal calculi are identified on contrast enhanced exam. The kidneys are unremarkable. There is no biliary ductal dilatation status post cholecystectomy. Liver, spleen, adrenal glands and pancreas are unremarkable. There is no abdominal or pelvic lymphadenopathy. The appendix is normal. No fluid collections are present. No acute fractures are identified within the visualized skeletal structures. Sensitivity for detection of urothelial lesions is diminished on this venous phase exam but none are identified. IMPRESSION: 1. No acute process within the abdomen or pelvis. 2. No hydronephrosis. No urinary calculi identified on contrast enhanced exam. ACT 112: Negative or not required by law. Electronically signed by: Tr Izquierdo M.D. 04/11/2023 3:19 PM (2) UTI (urinary tract infection) Hematuria presence: without hematuria Urinary tract infection type: acute cystitis Qualified Code(s): N30.00 - Acute cystitis without hematuria
[2023-04-11 12:50] LABS: Basophils # (auto) 0.01 K/uL (0.00-0.20); Basophils % (auto) 0.1 %; Eosinophils # (auto) 0.12 K/uL (0.00-0.50); Eosinophils % (auto) 1.6 %; Hemoglobin 14.4 g/dl (12.0-16.0); Immature Granulocytes # (auto) 0.02 K/uL (0.01-0.20); Immature Granulocytes % (auto) 0.3 %; Lymphocytes # (auto) 2.73 K/uL (1.20-3.40); Mean Corpuscular Hemoglobin 29.6 pg (25.0-34.0); Mean Corpuscular Hgb Conc 34.3 g/dL (32.0-36.0); Mean Corpuscular Volume 86.4 fL (80.0-100.0); Mean Platelet Volume 8.9 fL (9.4-12.4); Monocytes % (auto) 7.9 %; Neutrophils % (auto) 54.1 %; Platelet Count 234 K/uL (130-400); RDW Coefficient of Variation 12.6 % (11.5-14.5); RDW Standard Deviation 39.3 fL (36.4-46.3); Red Blood Count 4.86 M/uL (4.20-5.40); White Blood Count 7.58 K/ul (4.8-10.8)
[2023-04-11 12:59] LABS: Albumin Globulin Ratio 1.7 (0.9-2); BUN Creatinine Ratio 16.2 (10-20); Bilirubin,Total 0.5 mg/dl (0.2-1.0); Calcium 9.2 mg/dl (8.6-10.3); Creatinine Clr Calc Pharmacy 70.2 ml/min; Est GFR (African American) 67.5 ml/min; Est GFR (Non-African American) 58.3 ml/min; Globulin 2.4 gm/dl (2.5-4.0); Potassium 3.7 mmol/L (3.5-5.1); Total Protein 6.4 gm/dl (6.0-8.3)
[2023-04-11 13:03] LABS: Troponin I High Sensitivity 3.1 pg/ml (0-14)
[2023-04-11 13:07] LABS: INR 1.1 (0.9-1.1); Partial Thromboplastin Time 28 Seconds (21-31); Prothrombin Time 11.7 Seconds (9.0-12.0)
--- NOTE | 2023-04-11 13:09 | XRay Report ---
XR chest 1V portable CLINICAL HISTORY: Chest pain, nonspecific COMPARISON STUDY: Chest CT April 29, 2014. Chest radiograph April 09, 2023. FINDINGS: Lung volumes are normal. Lungs are clear. There is no pneumothorax or pleural effusion. Car diac size is normal. Mediastinal contours are normal. There is no evidence for pulmonary edema. IMPRESSION: No acute cardiopulmonary findings. ACT 112: Negative or not required by law. Electronically signed by: Tr Izquierdo M.D. 04/11/2023 1:08 PM
[2023-04-11] MEDS: SODIUM CHLORIDE 0.9% 1,000 ML IV ONE (13:18)
--- NOTE | 2023-04-11 13:21 | Emergency Department Note ---
Impression & Plan Weakness, Tachycardia, UTI (urinary tract infection), History of atrial fibrillation ED Provider Note NAME: PB CASAS AGE: 48 SEX: F : 1975 ARRIVES VIA: Walk-In INFORMANT: [Patient] ED PROVIDER(S): [John Austin MD] CHIEF COMPLAINT: Dr. Referred HISTORY OF PRESENT ILLNESS: The patient is a 48-year-old female who states that she was discharged from the hospital yesterday after being in for A-fib and syncope. Today, she was called by her admitting doctor and told that she had a urinary infection based on urine culture. The patient was not feeling well, she was dizzy, weak. She had noticed a faster heart rate. She was referred back to the ED for repeat hospitalization. The patient does admit to a foul-smelling urine and some urinary frequency. No burning to urinate. No fever. No cough or cold or congestion. Of note, the patient has a history of A-fib. She had an ablation last year which apparently failed. She is on Eliquis and propranolol. PMHx/PSHx/Social Hx: See Below PHYSICAL EXAM: GENERAL: Patient is in no acute distress. HEENT: No acute trauma, normocephalic atraumatic, mucous membranes moist, no nasal congestion. NECK: No stridor, no adenopathy, no meningismus, trachea is midline. LUNGS: Clear to auscultation bilaterally, no wheeze, no rhonchi, breath sounds equal. HEART: Without murmurs gallops or rubs, regular rate and rhythm. ABDOMEN: Soft, nontender, no peritonitis. EXTREMITIES: No cyanosis, full range of motion of all the joints without pain or difficulty. NEUROLOGIC: Oriented x 3, no acute motor or sensory deficits, no focal weakness. SKIN: No jaundice, no diaphoresis. DIFFERENTIAL DIAGNOSIS: UTI, bacteremia or sepsis, electrolyte imbalance, dehydration, dysrhythmia, among others. EMERGENCY DEPARTMENT PROCEDURES: MEDICAL DECISION MAKING: There is no leukocytosis or concerning anemia. There is a normal platelet count. No coagulopathy. No renal failure or significant electrolyte abnormality. No concerning liver enzyme elevation. ECG shows what appears to be a sinus tachycardia without acute ischemia. Cardiac enzyme testing x 1 is not consistent with acute cardiac injury. Chest x-ray did not show mediastinal widening, pneumonia or pneumothorax. On exam, patient was resting comfortably. On the monitor, her heart rate was in the 90s. Patient did have a urine culture result return with 100,000 E. coli. This may be why she feels weak and unwell. Patient had been called by her admitting doctor today. She was referred back to the ED, she is being hospitalized once again as she is still having episodes of tachycardia, she still feels weak and washed out. Certainly, the urine infection may be contributing to her presentation. The patient was given 1 L of IV saline, she received IV ceftriaxone and IV potassium. Case management was consulted, the on-call hospitalist was consulted. Prior/Outside records/notes reviewed: Discharge summary note from 04/10/2023 discussing her hospitalization for syncope. ECG per my interpretation: Indication was palpitations and weakness. The ECG shows a sinus tachycardia with a rate of 117. There is diffuse nonspecific ST change. There is no ST elevation, no PVCs. The QTc is 451. Continuous Cardiac Monitoring per my interpretation: An order was placed for continuous cardiac monitoring. The monitor shows a rate of 90 with normal sinus rhythm. Imaging/x-ray results per my interpretation: Chest x-ray does not show mediastinal widening, pneumonia or pneumothorax. Chronic Medical/Social conditions affecting care: A-fib with chronic anticoagulation. Care/Management discussed with: Case management, the on-call hospitalist. Level of care consideration(s): After review of the information above and other included data: --I believe the patient requires escalation of care to admission DISPOSITION: Admission Past Med/Surg History Medical History Atrial fibrillation with RVR Atrial fib/flutter, transient Pancreatitis, acute resolved over night Obesity Depression Surgical History S/P ablation of atrial fibrillation H/O: hysterectomy Family History Other Cancer Depression Social History Smoking Status: Never smoker Tobacco Type: E-cigarettes / Vaping Second Hand Exposure: No; Do You Dip or Chew Tobacco: No; Hx Alcohol Use: No Hx Substance Use: No Preferred Language: Ukrainian Communication Ability: Effective Jewel Bearing Driller Required: No Beliefs That Will Affect Care: None Current Living Situation: Spouse Feels Safe at Home: Yes Assistive Devices: None Allergies Allergies Allergy/AdvReac Type Severity Reaction Status Date / Time morphine Allergy Severe N/V,HEADACHE,CANT Verified 04/09/23 17:01 BREATHE acetaminophen AdvReac Mild Nausea/Vomi Verified 04/09/23 17:01 ting Home Meds Home Medications Medication Instructions Recorded Confirmed omeprazole 20 mg capsule,delayed 20 mg PO AMHS AM 03/09/21 04/09/23 release apixaban 5 mg tablet 5 mg PO AMHS 06/13/22 04/09/23 famotidine 20 mg tablet 20 mg PO BID 06/13/22 04/09/23 ondansetron 4 mg disintegrating 4 mg PO Q8H PRN Nausea 06/13/22 04/09/23 tablet tizanidine 4 mg tablet 4 mg PO Q6H PRN Muscle Spasm 06/13/22 04/09/23 duloxetine 30 mg capsule,delayed 30 mg PO QAM 04/09/23 04/09/23 release ketoconazole 2 % topical cream 1 applic topical UD 04/09/23 04/09/23 verapamil 180 mg 24 hr 180 mg PO QAM 04/09/23 04/09/23 capsule,extended release Results & Data (ED) Vital Signs Vital Signs - 24 hr 04/11/23 11:57 04/11/23 11:57 04/11/23 12:47 Temperature 36.6 C Temperature Source Temporal Artery Scan Pulse Rate 146 H 102 H Pulse Rate [Apical] Respiratory Rate 16 16 Blood Pressure 148/118 H Blood Pressure [Left Arm] Blood Pressure Mean 128 Blood Pressure Mean [Left Arm] Pulse Oximetry 100 Oxygen Delivery Method Sepsis Recent Fever Within 48 Hours No Sepsis New/Unexplained Change in Mental Status N/A Sepsis Action Taken by Nursing No Action Required 04/11/23 13:43 04/11/23 13:44 Temperature Temperature Source Pulse Rate Pulse Rate [Apical] 77 Respiratory Rate 14 Blood Pressure Blood Pressure [Left Arm] 122/92 Blood Pressure Mean Blood Pressure Mean [Left Arm] 102 Pulse Oximetry 99 Oxygen Delivery Method Room Air Room Air Sepsis Recent Fever Within 48 Hours Sepsis New/Unexplained Change in Mental Status Sepsis Action Taken by Care Home Medications Current Medication List: was personally reviewed by me Laboratory Data Attestation: I reviewed the patient's lab results. 04/11/23 12:20 04/11/23 12:20 Lab Results 04/11/23 Range/Units 12:20 WBC 7.58 (4.8-10.8) K/ul RBC 4.86 (4.20-5.40) M/uL Hgb 14.4 (12.0-16.0) g/dl Hct 42.0 (37.0-47.0) % MCV 86.4 (80.0-100.0) fL MCH 29.6 (25.0-34.0) pg MCHC 34.3 (32.0-36.0) g/dL RDW Std Deviation 39.3 (36.4-46.3) fL RDW Coeff of Amarilys 12.6 (11.5-14.5) % Plt Count 234 (130-400) K/uL MPV 8.9 L (9.4-12.4) fL Immature Gran % (Auto) 0.3 % Neut % (Auto) 54.1 % Lymph % (Auto) 36.0 % [place] % (Auto) 7.9 % Eos % (Auto) 1.6 % Baso % (Auto) 0.1 % Neut # (Auto) 4.10 (1.40-6.50) K/uL Lymph # (Auto) 2.73 (1.20-3.40) K/uL [place] # (Auto) 0.60 H (0.11-0.59) K/uL Eos # (Auto) 0.12 (0.00-0.50) K/uL Baso # (Auto) 0.01 (0.00-0.20) K/uL Immature Gran # (Auto) 0.02 (0.01-0.20) K/uL PT 11.7 (9.0-12.0) Seconds INR 1.1 (0.9-1.1) APTT 28 (21-31) Seconds PTT Ratio 1.0 Sodium 142 (136-145) mmol/L Potassium 3.7 D (3.5-5.1) mmol/L Chloride 108 H (98-107) mmol/L Carbon Dioxide 28 (21-32) mmol/L Anion Gap 6 (3-11) BUN 18 (6-23) mg/dl Creatinine 1.11 (0.6-1.2) mg/dl Est Cr Clr Drug Dosing 70.2 ml/min Est GFR ( Amer) 67.5 ml/min Est GFR (Non-Af Amer) 58.3 ml/min BUN/Creatinine Ratio 16.2 (10-20) Glucose 76 (70-99(Fasting)) mg/dl Calcium 9.2 (8.6-10.3) mg/dl Magnesium 1.9 (1.7-2.4) mg/dl Total Bilirubin 0.5 (0.2-1.0) mg/dl AST 21 (13-39) U/L ALT 45 (7-52) U/L Alkaline Phosphatase 98 (34-104) U/L Troponin I High Sens 3.1 (0-14) pg/ml Total Protein 6.4 (6.0-8.3) gm/dl Albumin 4.0 (3.4-5.0) gm/dl Globulin 2.4 L (2.5-4.0) gm/dl Albumin/Globulin Ratio 1.7 (0.9-2) Administered Medications Sodium Chloride (Nss) 1,000 mls @ 999 mls/hr IV .Q1H1M ONE Stop: 04/11/23 14:12 Last Admin: 04/11/23 13:18 Dose: 999 mls/hr Documented By: KV Potassium Chloride (K Dandre / Wtr) 10 meq in 100 mls @ 100 mls/hr IV ONE ONE Stop: 04/11/23 14:11 Last Admin: 04/11/23 13:43 Dose: 100 mls/hr Documented By: ANDREA Imaging Data Radiologist's Impression: Chest X-Ray 04/11/23 12:18 XR chest 1V portable CLINICAL HISTORY: Chest pain, nonspecific COMPARISON STUDY: Chest CT April 29, 2014. Chest radiograph April 09, 2023. FINDINGS: Lung volumes are normal. Lungs are clear. There is no pneumothorax or pleural effusion. Cardiac size is normal. Mediastinal contours are normal. There is no evidence for pulmonary edema. IMPRESSION: No acute cardiopulmonary findings. ACT 112: Negative or not required by law. Electronically signed by: Tr Izquierdo M.D. 04/11/2023 1:08 PM Discharge Plan Visit Data Chief Complaint: Referred by Doctor Stated Complaint: AFIB ED Provider: John Austin Discharge Problem: Weakness, Tachycardia, UTI (urinary tract infection), History of atrial fibrillation Patient Disposition: Admitted As Inpatient Condition: Fair Forms Stand Alone Forms: [facility] Prescriptions Prescriptions: No Action omeprazole 20 mg capsule,delayed release(DR/EC) 20 mg PO AMHS tizanidine 4 mg Tablet 4 mg PO Q6H PRN (Reason: Muscle Spasm) famotidine 20 mg Tablet 20 mg PO BID ondansetron 4 mg Tablet,Disintegrating 4 mg PO Q8H PRN (Reason: Nausea) apixaban 5 mg Tablet 5 mg PO AMHS verapamil 180 mg capsule,ext rel. pellets 24 hr 180 mg PO QAM ketoconazole 2 % cream 1 applic TOPICAL UD duloxetine 30 mg capsule,delayed release(DR/EC) 30 mg PO QAM Referrals Referrals: Jacques Badillo DO [Primary Care Provider] - Discharge Problem: UTI (urinary tract infection) Qualifiers: Urinary tract infection type: acute cystitis Hematuria presence: without hematuria Qualified Code(s): N30.00 - Acute cystitis without hematuria
[2023-04-11 13:33] LABS: Magnesium 1.9 mg/dl (1.7-2.4)
[2023-04-11] MEDS: POTASSIUM CHLORIDE / WTR 10 MEQ/100 ML PLCT IV ONE (13:43)
[2023-04-11] MEDS: OPTIRAY 320 500ml IV ONE (14:43)
[2023-04-11] MEDS: cefTRIAXone SODIUM 2,000 MG/50 ML BAG IV STA (14:55)
--- NOTE | 2023-04-11 15:21 | CT Scan Report ---
CT OF THE ABDOMEN AND PELVIS WITH CONTRAST CLINICAL HISTORY: abnormal urine, hematuria COMPARISON STUDY: CT of the abdomen and pelvis September 24, 2019. TECHNIQUE: Following IV administration of 86 mL of Optiray, axial images of the abdomen and pelvis we re obtained from the lung bases to the proximal femurs. Images were reviewed in the axial, sagittal, and coronal planes. IV contrast was administered without complication. Automated exposure control wa s utilized for the study. A dose lowering technique was utilized adhering to the principles of ALARA . CT DOSE: 1496.25 mGy.cm FINDINGS: Lung bases are unremarkable. No pneumatosis, free air or portal venous gas is present. Ther e is no hydronephrosis. No ureteral or bladder calculi. No renal calculi are identified on contrast e nhanced exam. The kidneys are unremarkable. There is no biliary ductal dilatation status post cholecy stectomy. Liver, spleen, adrenal glands and pancreas are unremarkable. There is no abdominal or pelvi c lymphadenopathy. The appendix is normal. No fluid collections are present. No acute fractures are i dentified within the visualized skeletal structures. Sensitivity for detection of urothelial lesions is diminished on this venous phase exam but none are identified. IMPRESSION: 1. No acute process within the abdomen or pelvis. 2. No hydronephrosis. No urinary calculi identified on contrast enhanced exam. ACT 112: Negative or not required by law. Electronically signed by: Tr Izquierdo M.D. 04/11/2023 3:19 PM
[2023-04-11] MEDS ORDERED: ONDANSETRON INJ 2 MG/ML 2 ML VIAL IV PRN (16:03)
[2023-04-11] MEDS ORDERED: ACETAMINOPHEN 500 MG TAB PO PRN (16:04)
[2023-04-11 17:09] LABS: Appearance Urine Clear (Clear); Bacteria Urine Automated Negative (Negative); Bilirubin Urine Negative (Negative); Blood Urine Negative (Negative); Cast Urine Automated 0 /lpf (0-5); Color Urine Yellow; Glucose Urine UA Negative (Negative); Ketones Urine Negative (Negative); Leukocyte Esterase Urine Trace (Negative); Nitrite Urine Negative (Negative); Protein Urine Negative (Negative); RBC Urine Automated 0-4 /hpf (0-4); Specific Gravity Urine 1.039 (1.000-1.030); Urobilinogen Urine Negative (Negative)
[2023-04-11] MEDS: SODIUM CHLORIDE 0.9% 1,000 ML IV SCH (18:20)
[2023-04-11] MEDS: cefTRIAXone SODIUM 2,000 MG in DEXTROSE 5 % MINI-B 50 ML IV SCH (18:20)
[2023-04-11] MEDS: APIXABAN 5 MG TABLET PO SCH (21:45)
[2023-04-11] MEDS: POTASSIUM CHLORIDE CRTAB 20 MEQ TABCR PO SCH (21:46)
[2023-04-11] MEDS: FAMOTIDINE 20 MG TAB PO SCH (21:46)
[2023-04-11] MEDS: PANTOprazole 40 MG TAB PO SCH (21:52)
--- OUTSIDE RECORDS SUMMARY | 2023-04-12 04:50 | External Medical Summary | Summary of Care ---
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 Role Phone Unavailable Primary Care Provider Unavailabl e Reason for Visit * Reason Onset Date Comments Hospital Follow-Up 04/11/2023 No KATYA needed Encounter Details Date Type Department Care Team (Late st Contact Info) Description 04/11/2023 Telephone Ancillary [facility] [address] [facility] [place] [address] Denita Quinonez, RN Hospital Follow-Up (No KATYA needed) Allergies Active Allergy Reactions Criticality Noted Date Comments Acetaminophen Nausea/vomiting Low 04/11/2016 Other reaction(s): Nausea/Vomiting Codeine High 09/21/2021 Difficulty breathing Morphine Neuro complications (Please comment) 11/09/2020 Pollen 06/20/2017 Venlafaxine 12/03/2012 Other reaction(s): Insomnia documented as of this encounter (statuses as of 04/11/2023) Medications Medication Sig Dispensed Refills Start Date [...] before bedtime. 60 Capsule 5 03/15/2023 Active documented as of this encounter (statuses as of 04/11/2023) Active Problems Problem Noted Date Diagnosed Date [...] as of this encounter (statuses as of 04/11/2023) Resolved Problems Problem Noted Date Diagnosed Date Resolved Date Gallbladder polyp 05/02/2014 09/04/2018 Overview: 2018 CT normal GB 04/26 [facility] US 2 4mm polyp Acute suppurative otitis media 07/21/2013 03/18/2018 Trigger point of neck 10/02/20122018 Acute sinusitis 03/02/2011 04/15/2012 Acute bronchitis, complicated 01/31/2011 04/15/2012 NO KNOWN PROBLEMS 11/28/2006 03/18/2018 documented as of this encounter (statuses as of 04/11/2023) Immunizations Name Administration Dates Next Due COVID-19 [...] encounter Miscellaneous Notes * Telephone Encounter - Denita Quinonez, RN - 04/11/2023 8:16 AM EST Transitions of Care Note Reason for Referral:Recent Admission Phone visit for follow up: Inpatient Hospitalization Admitted to: [facility], Date: 04/09 Discharged to: home, Date: 04/10 KATYA call not indicated due to admitted less than 24 hours. Denita Quinonez RN documented in this encounter Plan of Treatment Upcoming Encounters Date Type Department Care Team (Late st Contact Info) Description 04/13/2023 12:00 PM EST Office Visit Cardiology, [facility] [address] [place] [id number] Kassandra Coombs CRNP [address] [place] [address] [place] [phone] 05/24/2023 1:00 PM EDT Office Visit Family Practice [facility] [address] [place] [address] Jacques Badillo DO [address] [place] [id number] Health Maintenance Due Date Last Done Comments HIV Screening 1989 Hepatitis B (1 of 3 - 19+ 3-dose series) 1993 Cologuard 2019 Fecal Occult Blood Test 2019 [...] this encounter Medical Devices Implanted 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 Device 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 Shelf Expiration Date Model / Serial / Lot Wire Intelligent Data Sensor Devices - [id number] Implanted:Qty: 1 on 05/31/2022 by Radha Montes IV, MD at [facility] [employer] : PERIPHL IV [id number] 12/02/2023 [id number] Wire Intelligent Data Sensor Devices - [id number] Implanted:Qty: 1 on 05/31/2022 by Radha Montes IV, MD at [facility] [employer] : [employer]IPHL IV [id number] 11/24/2023 [id number] / [id number] documented as of this encounter Advance Directives Latest Code Status on File Code Status Date Activated Date Inactivated Comments Full Code 05/31/2022 3:27 PM 06/01/2022 1:18 AM This order reflects the patients wishes and were consensually agreed upon. Question Answer Comments Discussion of Advance Directives occurred with: Patient
[2023-04-12 07:04] LABS: Basophils # (auto) 0.01 K/uL (0.00-0.20); Basophils % (auto) 0.2 %; Eosinophils # (auto) 0.11 K/uL (0.00-0.50); Eosinophils % (auto) 1.9 %; Hematocrit (blood only) 36.1 % (37.0-47.0); Hemoglobin 12.1 g/dl (12.0-16.0); Immature Granulocytes # (auto) 0.03 K/uL (0.01-0.20); Immature Granulocytes % (auto) 0.5 %; Lymphocytes # (auto) 2.51 K/uL (1.20-3.40); Lymphocytes % (auto) 43.3 %; Mean Corpuscular Hgb Conc 33.5 g/dL (32.0-36.0); Mean Corpuscular Volume 89.4 fL (80.0-100.0); Mean Platelet Volume 8.8 fL (9.4-12.4); Monocytes # (auto) 0.42 K/uL (0.11-0.59); Monocytes % (auto) 7.2 %; Neutrophils # (auto) 2.72 K/uL (1.40-6.50); Neutrophils % (auto) 46.9 %; Platelet Count 181 K/uL (130-400); RDW Coefficient of Variation 12.6 % (11.5-14.5); RDW Standard Deviation 41.3 fL (36.4-46.3); Red Blood Count 4.04 M/uL (4.20-5.40)
[2023-04-12 07:20] LABS: Albumin Globulin Ratio 1.7 (0.9-2); Albumin Level 3.3 gm/dl (3.4-5.0); BUN Creatinine Ratio 12.4 (10-20); Bilirubin,Total 0.4 mg/dl (0.2-1.0); Calcium 8.5 mg/dl (8.6-10.3); Creatinine Clr Calc Pharmacy 87.6 ml/min; Est GFR (African American) 88.2 ml/min; Est GFR (Non-African American) 76.1 ml/min; Magnesium 1.9 mg/dl (1.7-2.4); Phosphorus 3.6 mg/dl (2.5-4.9); Potassium 4.4 mmol/L (3.5-5.1); Total Protein 5.3 gm/dl (6.0-8.3)
[2023-04-12] MEDS: VERAPAMIL HCL 180 MG TABCR PO SCH (08:06)
[2023-04-12] MEDS: DULoxetine HCL 30 MG CAP PO SCH (08:06)
[2023-04-12] MEDS: MAGNESIUM CHLORIDE W/CALCIUM 64MG DELAYED REL TAB PO SCH (10:12)
[2023-04-12] MEDS: MECLIZINE HCL 25 MG TAB PO PRN (11:02)
--- NOTE | 2023-04-12 12:48 | Electrocardiogram Report ---
Test Reason : Blood Pressure : / mmHG Vent. Rate : 117 BPM Atrial Rate : 117 BPM P-R Int : 128 ms QRS Dur : 074 ms QT Int : 324 ms P-R-T Axes : 050 006 -25 degrees QTc Int : 451 ms Sinus tachycardia Poor R wave progression, consider anterior AL vs. lead placement vs. LVH Abnormal ECG When compared with ECG of 09-APR-2023 14:33, Vent. rate has increased BY 64 BPM QRS duration has decreased Nonspecific T wave abnormality has replaced inverted T waves in Lateral leads Confirmed by Riki Cornejo ([id number]) on 04/12/2023 12:48:09 PM Referred By: REFERRED SELF Confirmed By:Riki Cornejo
--- NOTE | 2023-04-12 13:57 | Hospitalist Progress Note ---
Date of Service April 12, 2023 Assessment & Plan (1) History of atrial fibrillation: (2) UTI (urinary tract infection): (3) Tachycardia: (4) Weakness: (5) Facial abrasion: (6) Syncope: Plan Pt is a 48yoF with H/O Atrial fibrillation s/p ablation, atrial flutter currently on verapamil and apixaban presenting once more with dizziness, generalized malaise and reports of runs of atrial fibrillation noted on her apple watch at home once more. Pt was recently admitted on 04/09/23 and discharged on 04/10/23 after benign cardiac telemetry monitoring and workup with instructions to follow up with her coil builder on 04/13/23. Pending Urine Cx currently growing more than 100, 000 colonies of E coli. Pt denies dysuria or fevers, chills or night sweats. WBC repeatedly wnl. Does state that for the past few months her urine has had an abnormal smell, sometimes appearing cloudy. Denies pamela hematuria. Pt was called to advise of urine Cx results and outpatient antibiotic treatment plan. However, she stated that she was having persistent dizziness with runs of atrial fibrillation noted on her apple watch at home once more. She was advised to return for treatment and further evaluation. Syncope DD: Vertigo H/O Atrial fibrillation/atrial flutter Sinus bradycardia Patient reports ringing sensation in ears associate with dizziness since 3 weeks duration. She denies any recent URI --MRI brain:Normal head/brain MRI. --Cervical CT 04/09/23:No acute cervical spine fracture or subluxation. Heterogeneous thyroid gland with mild adjacent edema. The CT appearance is nonspecific. The findings could be correlated with thyroid function tests. --Face CT 04/09/23:No acute facial fracture --ECHO 04/10: Left ventricle systolic function normal. EF 60 to 65%. Normal left ventricle wall thickness. LV wall motion normal. No significant valvular pathology --Carotid ultrasound pending -- Normal orthostatics Started on Antivert as needed Advised to follow-up with ENT as outpatient Cardiology consult pending Continue verapamil and apixaban Complicated UTI Urine culture grew E. coli Blood cultures pending Continue Rocephin for now Facial abrasions Fall Pt with noted bruising on face on lower lip and left side of forehead, healing Had syncopal episode and fell while on Eliquis last admission Imaging studies showed no acute fractures Hypokalemia Noted on last admission Monitor and replete electrolytes as needed GERD Continue PPI and famotidine DVT Px: Eliquis CODE STATUS: Full code Admission and Anticipated Discharge Date Admission Date: April 11, 2023 Subjective Patient is seen and examined at bedside States having dizziness associated with ringing sensation intermittently x 3 weeks duration Denies any chest pain, dyspnea, palpitations, nausea, vomiting, abdominal pain today Urine culture growing E. coli No new complaints Review of Systems Review of Systems: All systems reviewed & are unremarkable except as noted in Subjective Physical Exam Physical Exam: Physical Exam: Vitals signs as noted above General Appearance:Moderately built and nourished, no apparent distress Head: normocephalic, Atraumatic Eyes: normal inspection, EOMI Neck: supple, Trachea midline Respiratory/Chest: Normal breath sounds, CTA, No accessory muscle use Cardiovascular: S1, S2, No murmur Abdomen/GI:Soft, Non tender, Bowel sounds present Extremities/Musculoskeletal:normal inspection, no edema Neurologic/Psych:AAOX3, grossly no focal neurological deficits Skin: normal color, warm Results & Data Results & Data Vital Signs (Past 12 Hours) Vital Signs Temp Pulse Resp BP Pulse Ox O2 Del Method 04/12/23 12:15 36.5 C 76 18 126/79 98 Room Air 04/12/23 08:00 36.7 C 73 17 107/76 97 Room Air 04/12/23 04:09 36.7 C 79 18 116/77 97 Room Air Laboratory Results Short CBC 04/12/23 Range/Units 06:18 WBC 5.80 (4.8-10.8) K/ul Hgb 12.1 (12.0-16.0) g/dl Hct 36.1 L (37.0-47.0) % Plt Count 181 (130-400) K/uL BMP 04/12/23 06:18 Sodium 139 Potassium 4.4 Chloride 109 H Carbon Dioxide 26 BUN 11 Creatinine 0.89 Glucose 91 Calcium 8.5 L Liver Function 04/12/23 Range/Units 06:18 Total Bilirubin 0.4 (0.2-1.0) mg/dl AST 13 (13-39) U/L ALT 31 (7-52) U/L Alkaline Phosphatase 73 (34-104) U/L Albumin 3.3 L (3.4-5.0) gm/dl Urine 04/11/23 Range/Units 16:49 Urine Color Yellow Urine Appearance Clear (Clear) Urine pH 6.0 (4.5-7.5) Ur Specific [place] 1.039 H (1.000-1.030) Urine Protein Negative (Negative) Urine Glucose (UA) Negative (Negative) (2) UTI (urinary tract infection) Hematuria presence: without hematuria Urinary tract infection type: acute cystitis Qualified Code(s): N30.00 - Acute cystitis without hematuria
--- NOTE | 2023-04-12 15:46 | Ultrasound Report ---
CAROTID ARTERY ULTRASOUND CLINICAL HISTORY: Syncope COMPARISON STUDY: None. TECHNIQUE: Real-time, grayscale, and color Doppler sonography of the carotid and vertebral arteries w as performed. Images were viewed in the transverse and longitudinal planes. FINDINGS: There is no atherosclerotic plaque. Velocity measurements are listed below. COMMON CAROTID PEAK SYSTOLIC VELOCITY (CM/S): RIGHT 68 LEFT 67 ICA PEAK SYSTOLIC VELOCITY (CM/S): RIGHT 70 LEFT 105 The systolic ratios between the internal to common carotid arteries were normal. Antegrade flow is seen in the vertebral arteries. The external carotid arteries are patent. IMPRESSION: Unremarkable carotid ultrasound. ACT 112: Negative or not required by law. Electronically signed by: Tr Izquierdo M.D. 04/12/2023 3:45 PM
--- NOTE | 2023-04-12 16:50 | Cardiology Consultation ---
Date of Consultation April 12, 2023 Assessment & Plan (1) History of atrial fibrillation: (2) Tachycardia: (3) Syncope: (4) Atrial flutter: Plan 1. Syncope: I would agree with the initial assessment this represents vagally mediated syncope. She was wearing her smart watch at the time and no specific arrhythmias were recorded. Recognition of the prodrome and the ability to take abortive maneuvers is recommended treatment. 2. Atrial fibrillation: She does have recordings on her smart watch that are suggestive of atrial fibrillation. In the past she is also appeared to have had an atypical atrial flutter which has spontaneously terminated. It is unclear how symptomatic she is from these arrhythmias. She appears have quite a few different symptoms some of which have not been well correlated with arrhythmia in the past. However, it would seem reasonable to continue her verapamil. We discussed options for treatment of arrhythmias such as atrial fibrillation, atrial flutter and what has been described as SVT. Certainly repeat catheter based therapy is 1 option. However, she would like to avoid additional procedures. Also, with such a variety of arrhythmias and potentially associated symptoms it may be more reasonable to try some antiarrhythmic therapy 1st. She was on flecainide previously. She can not recall any untoward side effects. Unclear efficacy. However, I think it is reasonable to try low-dose flecainide again. She has been maintained on systemic anticoagulation. Her CHADS-VASc score is quite low, only 1 for gender. We do not have a good sense of her burden of atrial fibrillation. At this point it seems reasonable continue apixaban but I think consideration could be made to discontinuing this in the future. 3. Atrial flutter: Described as an atypical atrial flutter in the past. She converted spontaneously in the past. She has had some regular SVTs documented before and this could be the mechanism. Unclear if this could be related to a prior pulmonary vein isolation. In any event, treatment will be directed as noted above. 4. Tachycardia: I did notice on her telemetry today that she has notably elevated heart rates with some activities. She was not markedly symptomatic and did not recognize tachycardia as a feature of her symptoms here in the hospital. The rhythm was sinus. Possible this could represent some deconditioning or dehydration. He is also suffering from an infection. I doubt that this represents POTS or inappropriate sinus tachycardia as she is able to exercise and perform her usual activity during the day which most frequent changes in position without symptoms. History of Present Illness Reason for Consultation: Palpitations, syncope Requesting Physician: Alfred Attending Physician: Grzegorz Vargas MD History of Present Illness The patient is a 48-year-old woman initially diagnosed with atrial fibrillation at the time of acute pancreatitis in 2018. Patient subsequently developed recurrent symptoms of atrial fibrillation not adequately controlled with medical therapy. She eventually progressed to pulmonary vein isolation in May 2022. The patient states she felt quite well for approximately 1 week's time when her symptoms returned. She was admitted to the hospital 2 days ago for an episode of syncope. Patient states that while at work she began to notice some pounding heartbeats. She then developed some diaphoresis and dizziness. She attempted to get up and find a more isolated location when she was witnessed by coworkers to have syncope. She is described as being pale. When she regained consciousness after the event she continued to feel nauseated and fatigued. She had a very profound need to have a bowel movement. She was brought to the hospital for evaluation. She is felt to have had an episode of vagally mediated syncope and discharge. However, she was notified that she had a positive laboratory test for urinary tract infection and she returned to the hospital for symptoms of dizziness mild nausea and a general feeling of being unwell. She was subsequently admitted to the hospital for treatment of her urinary tract infection and requested evaluation for her symptoms of palpitations. The patient appears to have several different complaints. One involves a sense of a rapid heartbeat when she is active. This is not appear to be exclusively positional. Associated with some mild dizziness and dyspnea. It does not occur every day but has been more prominent over the past couple of days. She also continues to have some symptoms of palpitations at rest. Some of these are very fleeting in nature. She also appears to have some symptoms related to what she describes as atrial fibrillation. Again, fairly diffuse symptoms of feeling unwell with some mild dizziness and a sense of palpitation. She does have a Apple watch which records rhythm problems and has recorded rhythms during symptoms labeled as atrial fibrillation. Allergies Allergy/AdvReac Type Severity Reaction Status Date / Time morphine Allergy Severe N/V,HEADACHE,CANT Verified 04/09/23 17:01 BREATHE acetaminophen AdvReac Mild Nausea/Vomi Verified 04/09/23 17:01 ting Home Medications Medication Instructions Recorded Confirmed Type omeprazole 20 mg capsule,delayed 20 mg PO [facility] AM 03/09/21 04/11/23 History release apixaban 5 mg tablet 5 mg PO AMHS 06/13/22 04/11/23 History famotidine 20 mg tablet 20 mg PO BID 06/13/22 04/11/23 History ondansetron 4 mg disintegrating 4 mg PO Q8H PRN Nausea 06/13/22 04/11/23 History tablet tizanidine 4 mg tablet 4 mg PO Q6H PRN Muscle Spasm 06/13/22 04/11/23 History duloxetine 30 mg capsule,delayed 30 mg PO QAM 04/09/23 04/11/23 History release verapamil 180 mg 24 hr 180 mg PO QAM 04/09/23 04/11/23 History capsule,extended release Patient History Medical History Atrial fibrillation with RVR Atrial fib/flutter, transient Pancreatitis, acute resolved over night Obesity Depression Surgical History S/P ablation of atrial fibrillation H/O: hysterectomy Family History Other Cancer Depression Social History Smoking Status: Never smoker Tobacco Type: E-cigarettes / Vaping Second Hand Exposure: No; Do You Dip or Chew Tobacco: No; Hx Alcohol Use: No Hx Substance Use: No Preferred Language: Maldivian Communication Ability: Effective Head Start Director Required: No Beliefs That Will Affect Care: None Current Living Situation: Spouse Other Information That Helps Us Care for You: No Feels Safe at Home: Yes Safety Concerns: Feels Safe At This Time Assistive Devices: None Review of Systems Review of Systems: Per HPI. No recent fevers or chills. Physical Exam Physical Exam: She is alert and oriented x3. Mood affect appear normal. She answered all questions appropriately. HEENT: Sclerae are anicteric. Pupils are equal and reactive to light and accommodation. Extraocular movements were intact. Neuro: Cranial nerves intact Lungs: Lungs are clear to auscultation bilaterally. There are no rales wheezes or rhonchi. She has normal respiratory effort without use of accessory muscles. There is normal pulmonary excursion. Cardiac: The rhythm was regular. S1 and S2 were normal. There are no murmurs on examination. The PMI was not markedly displaced on palpation. Abdomen: The abdomen was soft and nontender. Extremities: Patient has bilateral radial pulses that are equal in intensity. There is no evidence cyanosis or clubbing. There was no evidence of significant peripheral edema bilaterally. Skin: There are no rashes noted on examination today. Results & Data Vital Signs (Past 12 Hours) Vital Signs Temp Pulse Pulse Resp BP Pulse Ox O2 Del Method 04/12/23 15:41 36.7 C 70 17 131/71 97 Room Air 04/12/23 15:32 63 04/12/23 12:15 36.5 C 76 18 126/79 98 Room Air 04/12/23 08:00 36.7 C 73 17 107/76 97 Room Air Laboratory Results Abnormal Lab Results 04/11/23 04/12/23 16:49 06:18 WBC 5.80 RBC 4.04 L Hgb 12.1 Hct 36.1 L MCV 89.4 MCH 30.0 MCHC 33.5 RDW Std Deviation 41.3 RDW Coeff of Amarilys 12.6 Plt Count 181 MPV 8.8 L Immature Gran % (Auto) 0.5 Neut % (Auto) 46.9 Lymph % (Auto) 43.3 [place] % (Auto) 7.2 Eos % (Auto) 1.9 Baso % (Auto) 0.2 Neut # (Auto) 2.72 Lymph # (Auto) 2.51 [place] # (Auto) 0.42 Eos # (Auto) 0.11 Baso # (Auto) 0.01 Immature Gran # (Auto) 0.03 Sodium 139 Potassium 4.4 Chloride 109 H Carbon Dioxide 26 Anion Gap 4 BUN 11 Creatinine 0.89 Est Cr Clr Drug Dosing 87.6 Est GFR ( Amer) 88.2 Est GFR (Non-Af Amer) 76.1 BUN/Creatinine Ratio 12.4 Glucose 91 Calcium 8.5 L Phosphorus 3.6 Magnesium 1.9 Total Bilirubin 0.4 AST 13 ALT 31 Alkaline Phosphatase 73 Total Protein 5.3 L Albumin 3.3 L Globulin 2.0 L Albumin/Globulin Ratio 1.7 Urine Color Yellow Urine Appearance Clear Urine pH 6.0 Ur Specific [place] 1.039 H Urine Protein Negative Urine Glucose (UA) Negative Urine Ketones Negative Urine Blood Negative Urine Nitrite Negative Urine Bilirubin Negative Urine Urobilinogen Negative Ur Leukocyte Esterase Trace H Urine WBC (Auto) 5-10 H Urine RBC (Auto) 0-4 U Hyaline Cast (Auto) 0 U Epithel Cells (Auto) 10-20 H Urine Bacteria (Auto) Negative Diagnostic Findings Pulmonary vein isolation 05/31/2022 [facility] Outpatient monitoring dated 02/13/2023: 13 days 9 hours. Average heart rate 82 beats per minute. Some episodes of SVT lasting up to 1 minute. No atrial fibrillation identified. Patient's symptoms appear to be related to sinus rhythm. One symptom correlated with a short run of SVT. Echocardiogram dated 04/10/2023: Normal LV systolic function with ejection fraction 60 65%. Normal left ventricular wall thickness. Normal wall motion. No diastolic dysfunction or valvular pathology. PG Care Time/CCT Total # of Minutes Spent Total Time Spent with Patient: Total time spent is greater than 50% in coordination of care (as documented) at patient's floor/unit and/or counseling patient: Coding Level of Care Code 72621 IN/OBS CONSULT LVL 4,60M Diagnoses History of atrial fibrillation Z86.79 Tachycardia R00.0 Syncope R55 Atrial flutter I48.92
[2023-04-12] MEDS: ACETAMINOPHEN 1,000 MG/100 ML VIAL IV PRN (20:17)
[2023-04-12] MEDS: FLECAINIDE ACETATE 100 MG TABLET PO SCH (20:22)
[2023-04-13 06:38] LABS: Hematocrit (blood only) 36.3 % (37.0-47.0); Mean Corpuscular Hemoglobin 29.7 pg (25.0-34.0); Mean Corpuscular Hgb Conc 33.1 g/dL (32.0-36.0); Mean Corpuscular Volume 89.9 fL (80.0-100.0); Mean Platelet Volume 8.7 fL (9.4-12.4); Platelet Count 169 K/uL (130-400); RDW Coefficient of Variation 12.6 % (11.5-14.5); RDW Standard Deviation 41.1 fL (36.4-46.3); Red Blood Count 4.04 M/uL (4.20-5.40)
[2023-04-13 07:15] LABS: BUN Creatinine Ratio 12.3 (10-20); Calcium 8.5 mg/dl (8.6-10.3); Creatinine Clr Calc Pharmacy 70.7 ml/min; Est GFR (African American) 71.4 ml/min; Est GFR (Non-African American) 61.6 ml/min; Potassium 4.6 mmol/L (3.5-5.1)
[2023-04-13] MEDS: POTASSIUM CHLORIDE CRTAB 20 MEQ TABCR PO SCH (08:26)
--- NOTE | 2023-04-13 15:00 | Discharge Summary ---
Date of Service April 13, 2023 Admission HPI Per Admitting Provider Pt is a 48yoF with PMHx significant for atrial fibrillation s/p ablation, atrial flutter currently on verapamil and apixaban presenting once more with dizziness, generalized malaise and reports of runs of atrial fibrillation noted on her apple watch at home once more. 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 Pending Urine Cx before discharge currently growing more than 100, 000 colonies of E coli. Pt denies dysuria or fevers, chills or night sweats. WBC repeatedly wnl. Does state that for the past few months her urine has had an abnormal smell, sometimes appearing cloudy. Denies pamela hematuria. Pt was called to advise of urine Cx results and outpatient antibiotic treatment plan prior to arrival this time. However, she stated that she was having persistent dizziness with runs of atrial fibrillation noted on her apple watch at home overnight so she was advised to return for treatment and further evaluation. Admission Exam Per Admitting Provider General: Alert, oriented. No acute distress Skin: facial bruises Psych: Appropriate mood and affect Neuro: No gross deficits HEENT: NC, facial bruises Chest: Nontender to palpation. CV: RRR Resp: Breath sounds clear bilaterally, no increased effort of breathing. Abdomen: Soft, nontender, nondistended. Extremities: No edema in lower extremities bilaterally. Principal Diagnosis Urine tract infection Syncope Atrial fibrillation Discharge Exam Constitutional: WD/WN, vitals as above, NAD, sitting up in bed, pleasant, conversing easily Head: Small abrasion on left forehead Respiratory: normal respiratory effort, lungs clear to auscultation, no wheeze, rales, rhonchi. Normal insp/exp effort, no accessory muscle use Cardiovascular: RRR, no murmur, no edema Vessels: no JVD or carotid bruit Chest: normal inspection of chest Abdomen: normal bowel sounds, soft, nontender, no hepatosplenomegaly Musculoskeletal: no cyanosis or clubbing, extremities motor strength 5/5 Skin: no rashes, warm and dry normal turgor Neurologic: PERRL, EOMI, accommodation nl, no face palsy, no dysarthria CN's II- XI intact bilaterally and moves all extremities Psychiatric: A+Ox3, euthymic affect Discharge Data Allergies Allergy/AdvReac Type Severity Reaction Status Date / Time morphine Allergy Severe N/V,HEADACHE,CANT Verified 04/09/23 17:01 BREATHE acetaminophen AdvReac Mild Nausea/Vomi Verified 04/09/23 17:01 ting Consultations 04/11/23 13:14 ED Decision to Admit Stat 04/11/23 20:04 Consult Cardiology Routine Ordered Studies 04/11/23 13:29 CT Abd and Pelvis [CT abd pelvis IV con only] Urgent 04/12/23 14:01 US carotid doppler BI Routine Hospital Course (1) History of atrial fibrillation: (2) UTI (urinary tract infection): (3) Tachycardia: (4) Weakness: (5) Facial abrasion: (6) Syncope: Plan Patient is a 48-year-old with H/O Atrial fibrillation s/p ablation, atrial flutter currently on verapamil and apixaban presenting with dizziness, generalized malaise and reports of runs of atrial fibrillation noted on her apple watch at [facility]. 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 Patient was also found to have UTI; urine culture from last admission growing E. coli. Patient was admitted to the hospital and was started on antibiotics. [facility] cardiology was consulted for second opinion for atrial fibrillation. As per cardiology recommendation; patient was started on flecainide. No significant events on the telemetry noted during the hospitalization. Patient was discharged home on antibiotics for UTI, flecainide as per cardiology recommendation Patient to follow-up with PCP and cardiology as outpatient She was also started on potassium supplement for persistent hypokalemia Please note the above document was generated using voice recognition software. It may contain grammatical, syntax or spelling errors. Any formal questions or concerns about the content, text or information contained within the body of this dictation should be directly addressed to the provider for clarification Total Time Total Time Spent Total Time Spent (In Minutes): 45 Total Time Includes: Examination of the Patient, Discharge Planning, Medication Reconciliation, Communication With Other Providers and Other Discharge Plan Discharge Items Patient Disposition: Home - Self-Care Reason For Visit: AFIB, UTI Discharge Diagnosis: Atrial fibrillation UTI Hypokalemia Condition on Discharge: Fair Activity: Resume your previous activity Non-emergency contact: Primary Care Provider Call non-emergency contact if: you have any medication questions and your symptoms worsen Follow-up/Referrals: Jacques Badillo DO [Primary Care Provider] - (Date & Time 04/20/2023 10:00 AM Provider Fern Marx CRNP Department Family Practice [facility] ) Diet: Regular Addtl Attending Provider Instructions: You were admitted to the hospital with urine tract infection. You are prescribed ciprofloxacin to be taken twice daily for 5 more days. You were seen by Dr. Gonzalez during the hospitalization for atrial fibrillation. He recommended that you start on flecainide 50 mg twice a day. You were prescribed potassium 20 mEq tablets to be taken daily for low potassium level. You were also prescribed meclizine to be taken as needed for vertigo. Please follow-up with your primary care doctor as scheduled. Please obtain referral for ENT for evaluation of vertigo. Pending Studies at Discharge: No Stand-Alone Forms: My [facility], Smoking Cessation Medications and DC Order Prescriptions: New potassium chloride 20 mEq Tablet,Er Particles/Crystals 20 meq PO DAILY Qty: 30 0RF meclizine 25 mg Tablet 25 mg PO TID PRN (Reason: dizziness) Qty: 15 0RF flecainide 100 mg Tablet 50 mg PO Q12 Qty: 60 0RF ciprofloxacin HCl 500 mg tablet 500 mg PO BID 5 Days Qty: 10 0RF psyllium husk 0.52 gram capsule 0.52 g PO DAILY Qty: 60 0RF Continued omeprazole 20 mg capsule,delayed release(DR/EC) 20 mg PO [facility] tizanidine 4 mg Tablet 4 mg PO Q6H PRN (Reason: Muscle Spasm) famotidine 20 mg Tablet 20 mg PO BID ondansetron 4 mg Tablet,Disintegrating 4 mg PO Q8H PRN (Reason: Nausea) apixaban 5 mg Tablet 5 mg PO [facility] verapamil 180 mg capsule,ext rel. pellets 24 hr 180 mg PO QAM duloxetine 30 mg capsule,delayed release(DR/EC) 30 mg PO QAM Discharge Orders: Discharge Order (Routine); Ordered 04/13/23 Ordered By: Juan Carlos Tran Admission Data Admit Date/Time: 04/11/23 13:27 Attending Provider: Juan Carlos Tran Admit Provider: Liliya Simon Primary Care Provider: Jacques Badillo Other Providers: Liliya Simon; Trevor Gonzalez Other Interventions: Discharge Summary Assessment (RN) Last Done: 04/13/23 12:18
== END 2023-04-13 12:38 | disposition home or self-care (01) | DRG 690 ==
LOC: ED 11:57 → SUATTDRO 13:27 → 2E 13:27